=== PATIENT | male | born 1985 | race Caucasian/White ===

== ENCOUNTER 2017-09-07 20:37 | Emergency (ER) | payer OTHER, SELFPAY ==
[2017-09-07 20:38] VITALS: BP 131/89; PULSE 70; RESP 16; TEMP 36.8; O2SAT 98; BMI 34.2
--- NOTE | 2017-09-07 21:21 | CT_ITS ---
STUDY: CT ABDOMEN AND PELVIS WITHOUT CONTRAST REASON FOR EXAM: Male, 32 years old. Right flank pain, hematuria RADIATION DOSAGE (If Supplied By Facility): CTDIvol = ( 22.80 ) mGy, DLP = ( 1253.21 ) mGycm TECHNIQUE: Transaxial images were obtained from the lower chest to the upper thighs without oral contrast, and without intravenous contrast. Sagittal and coronal images were reconstructed. Individualized dose optimization techniques were used for this CT. COMPARISON: None. FINDINGS: There is minimal dependent atelectasis in both lung bases. There is no pleural effusion. The heart is normal in size. The liver is unremarkable. The gallbladder and biliary ducts are unremarkable. The spleen measures 16 cm in the AP plane. The pancreas is unremarkable. The adrenal glands are unremarkable. The right kidney is unremarkable. There is no dilatation of the collecting system in the right kidney. The left kidney is unremarkable. There is no dilatation of the collecting system in the left kidney. The stomach is unremarkable. The small bowel is unremarkable. The colon is unremarkable. There are a few calcifications in the lumen of the appendix and the appendix measures about 1.3 cm in diameter. There is no surrounding stranding. The aorta and branch vessels are unremarkable. The IVC is unremarkable. There are small lymph nodes scattered in the retroperitoneum and mesentery. There is no free fluid in the abdomen. The urinary bladder is unremarkable. The prostate is normal in size. The soft tissues are unremarkable. The osseous structures are unremarkable. CT/Abdomen/Pelvis without Cont IMPRESSION: There is no evidence of renal stones or urinary tract dilatation with attention to the right side. There are small appendicoliths in the lumen of the appendix with mild increased size of the appendix but no surrounding inflammation. The appendix is positioned between the inferior tip of the liver and the hepatic flexure. There is no ascites, free air or significant lymphadenopathy. The spleen is prominent in size which is nonspecific. Electronically Signed: Jiemy Price MD at 22:42 EST Tel Direct: [phone], Service support ,
--- NOTE | 2017-09-07 21:21 | ED.DCSUM_ITS ---
- ER Visit Summary Date of Service: 09/07/17 Chief Complaint: Hematuria and right flank pain History of Present Illness: The patient is a 32 M complaining of gross hematuria since . He has been able to urinate. Said he had does have about 10 years ago on extensive workup and did not find any cause of his hematuria and it resolved on its own after about a month. Said he had some type of skin that time and even had cystoscopy. He denies any dysuria. He denies any fever. He denies any nausea, vomiting or diarrhea. Today he did have right flank pain. No prior history of kidney stones. Physical Examination: Well-appearing young male. Vital signs are stable afebrile. HEENT exam unremarkable. Neck nontender no lymphadenopathy. Lungs clear to auscultation bilaterally. Heart regular rate and rhythm no murmur. Abdomen is soft, nontender nondistended no organ megaly or masses. Normal bowel sounds no peritoneal signs. He is moving all 4 extremities. Neurovascular intact. Without edema. Neurologically is awake and alert without focal deficits. Test Results: CBC normal white count of 7 H&H 13 and 39. BMP normal. Normal creatinine and gap. UA shows 10-25 red blood cells. Greater than 100 red blood cells. No nitrites or bacteria. A urine culture was sent. At this time this will not be treated. Patient does not have any urinary tract symptoms other than the blood. CT flank shows no acute abnormality. No stones. He does have appendicolith but no inflammation. And clinically that is not the issue. Emergency Department Course and Treatment: Gross hematuria will obtain a CT flank plus UA and labs. Treatment Plan: Repeat exam the patient is doing well at 2340. I went over all test results with both he and his . They are comfortable being discharged home. He is to follow-up with Dr. Michael burgos of urology for further evaluation. He was instructed to drink plenty of fluids. If he gets to the point where he cannot physically urinate he needs a return to have a Mcmanus catheter placed and be irrigated. He is having no trouble urinating at this time. Disposition: Discharge Impression: Acute gross hematuria of uncertain etiology This note was generated with [employer] dictation software. It may contain incorrect words, spelling, and punctuation that were not noted in review of the chart prior to signing ED Disposition - Plan for ED Patient: Chief Complaint: Complaint Referrals: Te Galan MD [Primary Care Provider] -
[2017-09-07 21:51] LABS: Bacteria 0 SEEN /hpf (None Seen); Mucous, Urine 0 SEEN /hpf (<or=2+)
[2017-09-07 21:54] LABS: Color, Urine Amber (Yellow); Glucose, Dipstick Normal (Normal); Ketone-Dipstick 5 mg/dl (Negative); Leukocyte Esterase-Dipstick 100 /ul (Negative); Nitrite-Dipstick Negative (Negative); Occult Blood-Urine 250 /ul (Negative); Protein-Dipstick 100 mg/dl (Negative); Urine Bilirubin Dipstick Negative (Negative); Urine Clarity Cloudy (Clear); Urine Urobilinogen Normal (Normal)
[2017-09-07 21:59] LABS: Absolute Lymphocyte Count 2.57 X10^3/ul (0.83-4.51); Absolute Neutrophil Count 3.8 X10^3/uL (2.0-7.7); Basophil# 0.01 X10^3/uL; Basophil% 0.1 % (0-1); Eosinophil# 0.17 X10^3/uL; Eosinophils% 2.4 % (0-5); Hematocrit 39.6 % (40-54); Hemoglobin 13.7 g/dl (13.0-16.5); Lymphocyte # 2.57 X10^3/ul (4.0); Lymphocyte % 36.2 % (19-41); Mean Corp Hgb Conc 34.6 g/gl (32-36); Mean Corpuscular Hgb 27.6 pg (27.0-32.0); Mean Corpuscular Volume 79.7 fL (80-94); Mean Platelet Vol. 9.4 fl (6.2-12.0); Monocyte# 0.51 X10^3/uL; Monocyte% 7.2 % (0-10); Neutrophil # 3.84 X10^3/uL (2.7-7.7); Neutrophil % 54.1 % (47-70); Platelet Count 197 K/mm3 (150-450); RBC Distribution Width CV 13.2 % (11.6-14.6); RBC Distribution Width SD 37.7 fl (35.1-43.9); Red Blood Count 4.97 M/mm3 (4.6-6.2); White Blood Count 7.1 K/mm3 (4.4-11.0)
[2017-09-07 22:01] LABS: POSITIVE COUNT NO; POSITIVE DIFFERENTIAL NO; POSITIVE MORPHOLOGY NO
[2017-09-07 22:03] LABS: Red Blood Cells-Urine > 100 SEEN /hpf (0-5); Squamous Epithelial Cells - UA 0-5 SEEN /hpf (0-5); White Blood Cells 10-25 SEEN /hpf (0-5)
[2017-09-07 22:11] LABS: Anion Gap 8 (5-15); BUN 19 mg/dL (7-18); BUN/Creat Ratio 17.8 RATIO (10-20); Calcium,Total 8.9 mg/dL (8.5-10.1); Chloride 106 mmol/L (98-107); Creatinine, Serum 1.07 mg/dL (0.70-1.30); EST Glomerular Filtration Rate 85 mL/min (>60); Est Glom Filt Rate - Afr Amer 103 mL/min (>60); Estimated Creatinine Clearance 134.58 ml/min; Glucose 100 mg/dL (74-106); Potassium 4.4 mmol/L (3.5-5.1); Sodium Level 141 mmol/L (136-145)
--- NOTE | 2017-09-07 23:44 | ED.DEP ---
ED Disposition - Plan for ED Patient: Disposition: Home or Assisted Living Chief Complaint: Complaint Instructions: ED Hematuria Referrals: Bernardo Wilde MD [STAFF PHYSICIAN] - As soon as possible Additional Instructions: Continue drinking plenty of liquids to continue to dilute the blood in your urine so that you can continue to urinate. If not you may develop large clots that will prevent you from urinating. If you get to the point where you cannot urinate you need to return to have a Mcmanus catheter placed to irrigate the blood your bladder. We do not have a cause of the blood in your urine tonight. You will need to follow-up with the urologist Dr. Michael Wilde.
[2017-09-07 23:57] VITALS: BP 120/72; PULSE 70; RESP 14; O2SAT 100
== END 2017-09-07 23:58 | disposition home or self-care (01) ==
PROVIDERS: Emergency Provider Emergency Medicine; Family Provider Family Medicine; PCP Family Medicine
DX: R31.0 Gross hematuria (principal); R10.9 Unspecified abdominal pain
CPT/HCPCS: 74176; 80048; 81001; 85025; 87086; 99283; A4216

== ENCOUNTER → 2017-09-09 12:32 | Outpatient (CLI) | payer OTHER, SELFPAY ==
--- NOTE | 2017-09-09 | CYSPIN_PTH ---
PATIENT: CORY GROSSMAN LOC: [facility] U#:[id number] AGE/SX: 40/M ROOM: RE09/09/[address]: RIKA Castillo : 1985 BED: DIS: SPEC #: [id number] RECD: 09/09/17 14:59 STATUS: CHARLA ACEVEDOLydia #: [id number] MANI: 09/09/17 00:[address]: Paula Burdick NP DEPT: CYTOLOGY RECD BY: Cecil Kay ENTERED: 09/09/17 14:59 SP TYPE: CYSPIN FL RADHA DR: Dr. Te Galan MD Tissues: Urine Procedures: Pap Stain (control) Special Stain Group II Cytospin Fluid Comments: @ Specimen number changed from [id number] to [id number] @ on 09/09/17 at 1524 by [employer]. HEADER OPERATION: Not noted PRE-OP DIAGNOSIS: Hematuria TISSUE SUBMITTED: Urine for cytology DIAGNOSIS CYTOLOGY Urine for cytology (cytospin): Bloody specimen. Negative for malignant cells. SJ:rg 09/10/17 COMMENT Clinical correlation and appropriate follow up are necessary. CYTOLOGY STUDY Slides are reviewed. The specimen is bloody and consists of blood mixed with inflammatory cells. CYTOLOGY GROSS Received is 50 ml of red, cloudy fluid labeled with the patient's name and and designated per the requisition as urine. Submitted for cytology preparation. 09/09/17 TC:5 CPT: 99857
[2017-09-09 13:02] LABS: Cytology, Body Fluid / CSF SEE PATHOLOGY REPORT
== END ==
PROVIDERS: Family Provider Family Medicine; PCP Family Medicine; Visit Provider Nurse Practitioner Adult Health
DX: R31.9 Hematuria, unspecified (principal)
CPT/HCPCS: 88108; 88313

== ENCOUNTER → 2017-09-17 15:38 | Outpatient (CLI) | payer OTHER, SELFPAY ==
--- NOTE | 2017-09-17 15:41 | CT_ITS ---
STUDY: CT ABDOMEN AND PELVIS WITH CONTRAST REASON FOR EXAM: Male, 32 years old. Right lower quadrant pain for 2 weeks, hematuria. RADIATION DOSAGE (If Supplied By Facility): CTDIvol = ( 20.71 ) mGy, DLP = ( 1573.01 ) mGycm TECHNIQUE: Transaxial images were obtained from the dome of the diaphragm to the symphysis pubis with oral contrast. 100ML ml of Isovue 300 contrast was administered. Sagittal and coronal images were reconstructed. Individualized dose optimization techniques were used for this CT. COMPARISON: CT abdomen pelvis September 07, 2017. FINDINGS: The visualized lung bases are unremarkable. The visualized portions of the heart are within normal limits. Normal liver. Patent portal vein diameter is 16.5 cm. The gallbladder is partially contracted. No bile duct ectasia. There is mild splenomegaly, measuring 16.85 x 5.95 x 12.95 cm. Normal pancreas. Normal bilateral adrenal glands. Normal right kidney. Normal left kidney. No hydronephrosis. Stomach is moderately filled with undigested food stuffs. Normal small intestine. Normal colon. Incidental note of cephalad retraction of the cecum, which is in the mid upper right flank. The appendix is visualized and appears normal. Normal abdominal aorta. Normal inferior vena cava. There are several stable nonspecific subcentimeter periaortic lymph nodes Normal urinary bladder. Normal visualized prostate gland. Mild fatty fullness of the inferior margin of the left inguinal canal suggests a small hernia. There are multilevel degenerative changes of the visualized spine. CT/Abdomen/Pelvis WITH Contrast IMPRESSION: 1. No nephrolithiasis or hydronephrosis. The urinary bladder is nondistended, but unremarkable. 2. Mild splenomegaly, unchanged. 3. Generally unremarkable bowel without sign of obstruction. There is moderate volume undigested food stuffs in the urinary bladder. Incidental note of stable cephalad retraction of the cecum. The appendix is normal. 4. Suggestion of stable small, fat containing left inguinal hernia. Electronically Signed: Daniel Smith MD at 19:43 EST , Service support ,
== END ==
PROVIDERS: Family Provider Family Medicine; PCP Family Medicine; Visit Provider Nurse Practitioner Adult Health
DX: R31.0 Gross hematuria (principal); R10.30 Lower abdominal pain, unspecified
CPT/HCPCS: 74177; Q9967

== ENCOUNTER → 2020-04-10 | Outpatient (CLI) | payer OTHER, SELFPAY ==
[2020-04-10 15:42] LABS: Vitamin B12 533 pg/mL (211-911); Vitamin D,25 Hydroxy 45.7 ng/mL
[2020-04-10 15:55] LABS: Absolute Lymphocyte Count 1.71 X10^3/uL (0.83-4.51); Absolute Neutrophil Count 3.8 X10^3/uL (2.0-7.7); Basophil# 0.02 X10^3/uL; Basophil% 0.3 % (0-1); Eosinophils% 1.6 % (0-5); Hematocrit 44.6 % (40-54); Hemoglobin 14.8 g/dL (13.0-16.5); Lymphocyte # 1.71 X10^3/ul (4.0); Lymphocyte % 27.4 % (19-41); Mean Corp Hgb Conc 33.2 g/dL (32-36); Mean Corpuscular Hgb 27.1 pg (27.0-32.0); Mean Corpuscular Volume 81.5 fL (80-94); Mean Platelet Vol. 10.3 fl (6.2-12.0); Monocyte# 0.59 X10^3/uL; Monocyte% 9.5 % (0-10); NRBC Flagged by Analyzer 0 % (0-5); Neutrophil # 3.78 X10^3/uL (2.7-7.7); Neutrophil % 60.7 % (47-70); Platelet Count 270 K/mm3 (150-450); RBC Distribution Width CV 13.3 % (11.6-14.6); RBC Distribution Width SD 39.3 fl (35.1-43.9); Red Blood Count 5.47 M/mm3 (4.6-6.2); White Blood Count 6.2 K/mm3 (4.4-11.0)
[2020-04-10 15:58] LABS: ALB/GLOB Ratio 1.3 RATIO (0.9-2.4); AST(SGOT) 18 U/L (15-37); Alanine Aminotransfer ALT/SGPT 35 U/L (16-61); Albumin, Serum 4.4 g/dL (3.2-5.0); Alkaline Phosphatase 82 U/L (45-117); Anion Gap 2 (5-15); BUN 13 mg/dL (7-18); BUN/Creat Ratio 11.9 RATIO (10-20); Calcium,Total 9.6 mg/dL (8.5-10.1); Chloride 104 mmol/L (98-107); Cholesterol 186 mg/dL (200); Creatinine, Serum 1.09 mg/dL (0.70-1.30); EST Glomerular Filtration Rate 82 mL/min (>60); Est Glom Filt Rate - Afr Amer 99 mL/min (>60); Globulin 3.4 g/dL (2.2-4.2); Glucose 93 mg/dL (74-106); High Density Lipoprotein 44 mg/dL; Potassium 4.6 mmol/L (3.5-5.1); Protein, Total 7.8 g/dL (6.4-8.2); Sodium Level 138 mmol/L (136-145); Thyroid Stim Hormone (TSH) 1.06 uIU/mL (0.358-3.74); Triglycerides 113 mg/dL; Very Low Density Lipoprotein 23 mg/dL (5-40)
== END | disposition home or self-care (01) ==
LOC: MFPLAB 12:07
PROVIDERS: PCP Family Medicine; Visit Provider Family Medicine
DX: R20.0 Anesthesia of skin (principal); Z13.220 Encounter for screening for lipoid disorders
CPT/HCPCS: 36415; 80053; 80061; 82306; 82607; 82746; 84443; 85025

== ENCOUNTER → 2020-06-14 06:26 | Outpatient (CLI) | payer OTHER, SELFPAY ==
--- NOTE | 2020-06-14 14:40 | NEURO ---
NCS and/or EMG Patient Report Ordering Doctor: Te Chamberlain DATE OF SERVICE: 06/14/20 Esteban Barrera presents for electrodiagnostic testing of the right lower limb. He reports pain in the right foot, under the big toe. He states he feels like he walking on a knob. Electrodiagnostic findings: Right peroneal motor nerve demonstrates normal distal latency, amplitude and conduction velocity. Normal right tibial motor response. Prolonged right tibial and peroneal F waves are noted. Prolonged H reflex noted bilaterally. Prolonged right sural latency. Absent right superficial peroneal response. On needle EMG, all muscles tested in the right lower limb showed no evidence of denervation with normal motor unit action potentials. Electrodiagnostic assessment: This is an abnormal study in the right lower limb 1. There is evidence of sensory neuropathy, involving the right sural and right superficial peroneal nerves. There are also prolonged F waves and H reflexes. This may be suggestive of a larger polyneuropathy. Would consider correlation with testing of the alternate lower limb in order to better evaluate for peripheral polyneuropathy. If there are any further questions, please do not hesitate to contact me
== END ==
PROVIDERS: PCP Family Medicine; Referring Provider Family Medicine; Visit Provider Family Medicine
DX: R20.0 Anesthesia of skin (principal)
CPT/HCPCS: 95886; 95910

== ENCOUNTER → 2020-08-29 16:10 | Outpatient (CLI) | payer OTHER, SELFPAY ==
[2020-08-29 14:59] VITALS: BMI 34.0
[2020-08-31 20:10] LABS: Free Kappa Light Chains 9.8 mg/L (3.3-19.4)
== END ==
PROVIDERS: PCP Family Medicine; Referring Provider Nurse Practitioner Family; Visit Provider Nurse Practitioner Family
DX: G62.9 Polyneuropathy, unspecified (principal)
CPT/HCPCS: 36415; 83883

== ENCOUNTER → 2020-08-30 11:30 | Outpatient (CLI) | payer OTHER, SELFPAY ==
[2020-08-29 14:59] VITALS: BMI 34.0
--- NOTE | 2020-08-30 11:33 | RAD_ITS ---
STUDY: X-RAY - RIGHT FOOT CLINICAL: Male, 35 years old. PAIN ON BOTTOM OF RIGHT BIG TOE AND FOOT. QUESTIONABLE MORTONS NEUROMA. TECHNIQUE: 2 view(s) of the foot. COMPARISON: None. FINDINGS: Normal talus, calcaneus, and tarsal bones. Normal visualized subtalar, talonavicular, calcaneocuboid, tarsal and tarsometatarsal articulations. Normal metatarsi. Normal metatarsophalangeal joint of the great toe. Normal tibial and fibular sesamoid bones. Normal interphalangeal joint of the great toe. Normal phalanges of the great toe. Normal second through fifth metatarsophalangeal joints. Normal interphalangeal joints and phalanges of the lesser toes. The soft tissue structures are unremarkable. RAD/Foot 2 Views IMPRESSION: Normal x-ray examination of the foot. Electronically Signed: Nilton Abrams MD at 15:43 EST , Service support ,
== END ==
PROVIDERS: PCP Family Medicine; Referring Provider Nurse Practitioner Family; Visit Provider Nurse Practitioner Family
DX: G57.61 Lesion of plantar nerve, right lower limb (principal)
CPT/HCPCS: 73620

== ENCOUNTER 2021-07-09 10:30 | Outpatient (RCR) | payer OTHER, SELFPAY ==
--- NOTE | 2021-07-02 14:05 | HP.PTEVAL ---
Patient's Visit Information CORY GROSSMAN is a 36 year old M referred to Physical Therapy by Dr. Mark Roman MD with a diagnosis of UPPER/MID THORACIC BACK PAIN. Date of Evaluation: 07/02/21 Physical Therapist: Antonio Alcocer PT, Cert MDT, OCS - Visit Plan Frequency: 1-2x /Week Duration: 5WEEKS Plan: PT INTERVETIONS THORACIC/CERVICAL MOBILIZATION,THORACIC /CERVICAL ROM,THORACIC /POSTURAL EX'S AND STRENGTHNEING - Subjective This 36 y/o male presents to physical therapy upper/mid thoracic pain . Patient has been there since Apr 2021 without predisposing factors. But did noticed episode lumbar pain doing beach body. But currently has pain scapular pain ,thoracic pain and lower neck. Aggravating factors flexion neck type exercises and or flexion laying supine ,morning ,sitting and twisting. Alleviating factors moving. Seen Dr no diagnostics or MEDS. Bowel/bladder -.Coughing/sneezing-. Denies HEDRICK . Patient symptoms are affected with house work tasks ,job demands. Denies paresthesia/tingling. Pain affects sleeping . Patient symptoms affects QOL. SOCIAL: . VOCATION: [employer] - Pain Bilateral Back Pain Intensity (Out of 10): 5 Pain Intensity Range: 10 Comment: thoracic - Objective POSTURE: mild forward thoracic. NEURO: denies paresthesia/tingling, reflexes C5-6-7 3/3. PALAPTION: tender UT. MOBLITY TESTING : thoracic spine min/mod tight T11 -C7. CERVICAL ROM: flexion min loss, rotation/lateral flexion min ,extension min/mod loss. THORACIC ROM: flexion min loss, extension mod loss ,rotation. MMT: grossly 5/5. - Special Tests C/S Radiculapathy - Left Upper limb tension test: Negative C/S Radiculapathy - Right Upper limb tension test: Negative C/S Radiculapathy - Left Spurlings: Negative C/S Radiculapathy - Right Spurlings: Negative C/S Radiculapathy - Left Cervical distraction: Negative C/S Radiculapathy - Right Cervical distraction: Negative Sharp Jessica: Negative Vertebral Artery Test: Negative Alar Ligament Test: Negative Cervical Sitting: Protrusion - Mechanical Response: No effect Cervical Sitting: Protrusion - Symptoms During Testing: Produces Cervical Sitting: Protrusion - Symptoms After Testing: Worse Cervical Sitting: Retraction - Mechanical Response: No effect Cervical Sitting: Retraction - Symptoms During Testing: Decreases Cervical Sitting: Retraction - Symptoms After Testing: Better Cervical Sitting: Retraction-Extension - Mechanical Response: No effect Cerv Sitting: Retraction-Extension - Symptoms During Testing: Decreases Cerv Sitting: Retraction-Extension - Symptoms After Testing: Better Cervical Sitting: Flexion - Mechanical Response: No effect Cervical Sitting: Flexion - Symptoms During Testing: Increases Cervical Sitting: Flexion - Symptoms After Testing: Worse Thoracic Sitting: Flexion - Mechanical Response: No effect Thoracic Sitting: Flexion - Symptoms During Testing: Increases Thoracic Sitting: Flexion - Symptoms After Testing: No worse Thoracic Sitting: Extension - Mechanical Response: No effect Thoracic Sitting: Extension - Symptoms During Testing: No effect Thoracic Sitting: Extension - Symptoms After Testing: No effect Thoracic Sitting: Right rotation - Mechanical Response: No effect Thoracic Sitting: Right Rotation - Symptoms During Testing: Increases Thoracic Sitting: Right Rotation - Symptoms After Testing: No worse Thoracic Sitting: Left rotation - Mechanical Response: No effect Thoracic Sitting: Left Rotation - Symptoms During Testing: Increases Thoracic Sitting: Left Rotation - Symptoms After Testing: No worse - Balance/Special Test Scores Oswestry Low Back Score: 15 - Goals Goal 1:: I with HEP for back Goal Time Frame: 4-6 Weeks Goal 2:: Improve posture for ADLS' Goal Time Frame: 4-6 Weeks Goal 3:: Patient to demonstrate 50 % improvement with decrease symptoms to improve function Goal Time Frame: 4-6 Weeks Goal 4:: Patient to improve cervical /thoracic ROM for function of recovery Goal Time Frame: 4-6 Weeks Goal 5:: Patient to improve back owestry score by 5 points to improve function Goal Time Frame: 4-6 Weeks - Rehabilitation Potential Physical Therapy Diagnosis: This patient has possible thoracic/cervical derangement with pain with positioning, movement testing , better with correction of posture and extension , posture thus benefit skilled PT Rehabilitation Potential: Good - Anticipated Interventions Patient/Client Instruction: Educate patient on: Condition, Plan of Care For the Purpose of:: To decrease pain, To increase ROM, To improve ability to perform ADL's, To increase tolerance to activity/condition/position, To improve ability of physical actions for home/community/work/leisure, To improve health of tissue, To decrease soft tissue restriction, To increase flexibility/ROM, To reduce risk of recurrence, To prevent re-injury Therapeutic Exercise to Include: Strength training, Endurance training, Body mechanics, Postural training, Flexibilty training, Active ROM, Alona Exercises For the Purpose of:: To decrease pain, To increase ROM, To increase oxygenation perfusion, To improve ability to perform ADL's, To increase tolerance to activity/condition/position, To improve ability of physical actions for home/community/work/leisure, To improve health of tissue, To decrease soft tissue restriction, To increase flexibility/ROM, To reduce risk of recurrence, To prevent re-injury Manual Therapy Techniques to Include: Mobilization Comment: THORACIC/CERVICAL For the Purpose of:: To decrease pain, To increase ROM, To improve health of tissue, To decrease soft tissue restriction, To increase flexibility/ROM Thank you for the opportunity to evaluate your patient. For Medicare and Medicare HMO plans, please review the plan of care and approve it. It will need to be FAXED BACK to us at [phone] for Medicare purposes. For Medicare only, by signing this I certify the plan of care. Please let me know if there are questions or concerns regarding this plan of care. Physician Signature: Date:
--- NOTE | 2021-08-01 08:58 | HP.PT.NRP ---
CORY GROSSMAN was seen in my office for initial evaluation on 07/02/21. The following Plan of Care was established for this patient: Initial Frequency: 1-2x /Week Initial Duration: 5WEEKS Patient/Client Instruction: Educate patient on: Condition, Plan of Care For the Purpose of:: To decrease pain, To increase ROM, To improve ability to perform ADL's, To increase tolerance to activity/condition/position, To improve ability of physical actions for home/community/work/leisure, To improve health of tissue, To decrease soft tissue restriction, To increase flexibility/ROM, To reduce risk of recurrence, To prevent re-injury Therapeutic Exercise to Include: Strength training, Endurance training, Body mechanics, Postural training, Flexibilty training, Active ROM, Alona Exercises For the Purpose of:: To decrease pain, To increase ROM, To increase oxygenation perfusion, To improve ability to perform ADL's, To increase tolerance to activity/condition/position, To improve ability of physical actions for home/community/work/leisure, To improve health of tissue, To decrease soft tissue restriction, To increase flexibility/ROM, To reduce risk of recurrence, To prevent re-injury Manual Therapy Techniques to Include: Mobilization Comment: THORACIC/CERVICAL For the Purpose of:: To decrease pain, To increase ROM, To improve health of tissue, To decrease soft tissue restriction, To increase flexibility/ROM This patient was last seen in our office . Pertinent comments regarding their Physical therapy will appear below: Patient was seen for PT for upper back pain for mobility ex's,ROM ,strengthening and DLS thus is d/c At this point I will be discontinuing this patient from physical therapy. I would be happy to see this patient again in the future if found appropriate by the physician. Thank you! Antonio Alcocer, PT, Cert MDT, OCS Balance/Gait/Functional tests - Balance/Special Test Scores Oswestry Low Back Score: 2
== END 2021-07-09 19:00 | disposition home or self-care (01) ==
LOC: PT 10:30
PROVIDERS: PCP Family Medicine; Referring Provider Family Medicine; Visit Provider Family Medicine
DX: M54.6 Pain in thoracic spine (principal)
CPT/HCPCS: 97110; 97161

== ENCOUNTER → 2021-11-14 | Outpatient (CLI) | payer OTHER, SELFPAY ==
[2021-11-14 10:00] LABS: Absolute Lymphocyte Count 1.53 X10^3/uL (0.83-4.51); Absolute Neutrophil Count 2.7 X10^3/uL (2.0-7.7); Basophil# 0.02 X10^3/uL; Basophil% 0.4 % (0-1); Eosinophil# 0.14 X10^3/uL; Eosinophils% 2.8 % (0-5); Hematocrit 38.7 % (40-54); Hemoglobin 13.4 g/dL (13.0-16.5); Lymphocyte # 1.53 X10^3/ul (0.83-4.51); Lymphocyte % 31.1 % (19-41); Mean Corp Hgb Conc 34.6 g/dL (32-36); Mean Corpuscular Hgb 28.7 pg (27.0-32.0); Mean Corpuscular Volume 82.9 fL (80-94); Mean Platelet Vol. 9.7 fl (6.2-12.0); Monocyte# 0.51 X10^3/uL; Monocyte% 10.4 % (0-10); NRBC Flagged by Analyzer 0 % (0-5); Neutrophil % 54.9 % (47-70); Platelet Count 240 K/mm3 (150-450); RBC Distribution Width CV 12.6 % (11.6-14.6); RBC Distribution Width SD 37.5 fl (35.1-43.9); Red Blood Count 4.67 M/mm3 (4.6-6.2); White Blood Count 4.9 K/mm3 (4.4-11.0)
[2021-11-14 10:26] LABS: ALB/GLOB Ratio 1.3 RATIO (0.9-2.4); AST(SGOT) 29 U/L (15-37); Alanine Aminotransfer ALT/SGPT 46 U/L (16-61); Albumin, Serum 3.9 g/dL (3.2-5.0); Alkaline Phosphatase 67 U/L (45-117); Anion Gap 4 (5-15); BUN 15 mg/dL (7-18); BUN/Creat Ratio 14.4 RATIO (10-20); Calcium,Total 8.5 mg/dL (8.5-10.1); Chloride 108 mmol/L (98-107); Cholesterol 151 mg/dL (200); Creatinine, Serum 1.04 mg/dL (0.70-1.30); EST Glomerular Filtration Rate 86 mL/min (>60); Est Glom Filt Rate - Afr Amer 104 mL/min (>60); Glucose 112 mg/dL (74-106); High Density Lipoprotein 30 mg/dL; Potassium 4.4 mmol/L (3.5-5.1); Protein, Total 6.9 g/dL (6.4-8.2); Sodium Level 140 mmol/L (136-145); T4 Free Direct 0.93 ng/dL (0.76-1.46); Thyroid Stim Hormone (TSH) 2.17 uIU/mL (0.358-3.74); Triglycerides 117 mg/dL; Very Low Density Lipoprotein 23 mg/dL (5-40)
[2021-11-14 17:45] LABS: Hemoglobin A1c 5.1 % (3.8-5.6)
== END | disposition home or self-care (01) ==
LOC: MFPLAB 08:39
PROVIDERS: Family Medicine; PCP Family Medicine; Referring Provider Family Medicine; Visit Provider Family Medicine
DX: Z00.00 Encounter for general adult medical examination without abnormal findings (principal); R73.09 Other abnormal glucose; E04.1 Nontoxic single thyroid nodule
CPT/HCPCS: 36415; 80053; 80061; 83036; 84439; 84443; 85025

== ENCOUNTER → 2021-11-19 | Outpatient (CLI) | payer OTHER, SELFPAY ==
--- NOTE | 2021-11-19 07:59 | US_ITS ---
STUDY: THYROID ULTRASOUND REASON FOR EXAM: Male, 36 years old. THYROID NODULE felt by doctor TECHNIQUE: Ultrasound evaluation of the thyroid was performed with real-time and static richey-scale imaging. COMPARISON: None. FINDINGS: RIGHT LOBE: The right lobe of the thyroid gland is enlarged and measures 6 cm x 2.7 cm x 1.8 cm. There is a homogeneous echotexture. There are no demonstrated solid, cystic or complex lesions. LEFT LOBE: The left lobe of the thyroid gland is enlarged and measures 5.4 cm x 2.4 cm x 1.8 cm. There is a there is a 2 mm x 3 mm x 3 mm cystic nodule in the lower pole of the left lobe.. ISTHMUS: The isthmus measures 3 mm. The regional lymph nodes are normal. US/Thyroid IMPRESSION: Enlarged thyroid. 2 mm x 3 mm x 3 mm cystic nodule in the inferior pole of the left lobe of the thyroid. Electronically Signed: Nilton Abrams MD at 10:24 EDT ,
== END | disposition home or self-care (01) ==
LOC: US 07:57
PROVIDERS: PCP Family Medicine; Referring Provider Family Medicine; Visit Provider Family Medicine
DX: E04.1 Nontoxic single thyroid nodule (principal)
CPT/HCPCS: 76536

== ENCOUNTER → 2022-05-05 | Day surgery (SDC) | payer OTHER, SELFPAY ==
[2022-05-05] VITALS (9 sets, daily range): BP systolic 112–171; BP diastolic 57–93; PULSE 58–78; RESP 12–18; TEMP 36–37.6; O2SAT 96–100; BMI 35.4
--- NOTE | 2022-05-05 09:07 | CT_ITS ---
STUDY: CT ABDOMEN AND PELVIS WITH CONTRAST REASON FOR EXAM: Male, 37 years old. RLQ abd pain RADIATION DOSAGE (If Supplied By Facility): CTDIvol = ( 17.07 ) mGy, DLP = ( 1379.28 ) mGycm TECHNIQUE: Transaxial images were obtained from the dome of the diaphragm to the symphysis pubis without oral contrast. IV 100mL Isovue-370 was administered. Sagittal and coronal images were reconstructed. Individualized dose optimization techniques were used for this CT. COMPARISON: None. FINDINGS: The visualized lung bases are unremarkable. The visualized portions of the heart are within normal limits. Normal liver. Normal gallbladder and extrahepatic biliary system. Normal spleen. Normal pancreas. Normal bilateral adrenal glands. Normal right kidney. Normal left kidney. Normal visualized stomach. Normal small intestine. Normal colon. There is a calcified appendicolith with a dilated fluid-filled appendix with stranding of surrounding fat consistent with acute appendicitis. No loculated fluid collection to suggest abscess. No pneumoperitoneum to suggest perforation. Normal abdominal aorta. Normal inferior vena cava. Normal retroperitoneum. Normal urinary bladder. Normal abdominal wall. Normal osseous structures. CT/Abdomen/Pelvis W IV Cont ONLY IMPRESSION: Acute appendicitis without abscess or perforation. N.B. : The above Results were Read Back by Antonio Chaudhari MD to Donavon Galvan MD, and understanding confirmed on 05/05/2022 09:55:22 (ET). Electronically Signed: Antonio Chaudhari MD at 9:56 EDT ,
--- NOTE | 2022-05-05 09:08 | EDS_ITS ---
HPI HPI - GI History of Present Illness Chief Complaint: Abd Pain Informant: patient Abdominal Pain/Flank Pain Onset: Yesterday Context: Gradual Onset Timing: Continuous Quality: Aching Location: RLQ Current Severity: Mild Maximum Severity: Mild Worsened by: Car ride Relieved by: Nothing Nausea/Vomiting/Emesis GI Symptom: Positive for Nausea; Negative for Vomiting Onset: Today Quality: Negative for Nonbilious Severity: Mild Diarrhea/Melena/Hematochezia GI Symptom: Negative for Diarrhea, Melena or Hematochezia Associated Symptoms Associated Symptoms: Negative for Dysuria, Frequency, Hematuria or Urgency Narrative Narrative: 37-year-old male no significant past medical history. Currently on no medications. Only prior surgery was a tonsillectomy. No prior abdominal robert geries. States last night around 1045 he had lower quadrant abdominal pain now is more so in the right lower quadrant. Associated nausea. No vomiting or diarrhea. No dysuria or hematuria. No fever. No weight loss. Prior similar symptoms: No Recent Illness/Hospitalization: No PFSH PFSH Medical History no medical history no medical history Home Medications NK 05/05/22 [History Last Taken Unknown] Allergy/AdvReac Type Severity Reaction Status Date / Time No Known Allergies Allergy Verified 05/05/22 08:52 Family History Father Hypertension A-fib Heart disease High cholesterol Surgical History History of tonsillectomy Social History Smoking Status: Never smoker Electronic Cigarette Use: not used second hand exposure: No alcohol intake: current Alcohol type: beer details: Social substance use type: does not use what type of physical activity do you participate in: running and weight training frequency: 5-6 times per week ROS ROS ED ROS Narrative Right lower quadrant abdominal pain. Nausea. Review of Systems ROS Unobtainable: Denies due to encephalopathy Constitutional Constitutional ED: Denies chills or fever(s) ENT ENT ED: Denies ear pain Cardiovascular Cardiovascular: Denies chest pain Respiratory/Chest Respiratory/Chest: Denies cough or dyspnea Gastrointestinal Gastrointestinal: Reports abdominal pain and nausea; Denies constipation, diarrhea, melena or vomiting Genitourinary Genitourinary ED: Denies dysuria or hematuria Musculoskeletal Musculoskeletal: Denies arthralgias Integumentary Denies abscess Neurologic Neurologic: Denies headache(s) Psychiatric Psychiatric: Denies anxiety Endocrine Endocrinology: Denies polydipsia Hematologic/Lymphatic Hematologic/Lymphatic: Denies easy bleeding Allergic/Immunologic Allergic/Immunologic ED: Denies mouth swelling or tongue swelling EXAM Physical Exam Narrative Exam Narrative: Well-appearing 37-year-old male. Vital signs stable afebrile. H EENT exam normal. Lungs clear. Heart regular rhythm no murmur. Abdomen soft, tender in the right lower quadrant only. No hernia or mass. No distention. Right upper quadrant unremarkable. No peritoneal signs. Moving all 4 extremities. Back nontender. Neurologically is awake and alert with no focal motor deficits. Const Vital Signs: 05/05/22 08:52 Temperature 96.8 F L Temperature Source Temporal Pulse Rate 58 L Respiratory Rate 18 Blood Pressure 171/93 H Blood Pressure Mean 119 Pulse Ox 99 Oxygen Delivery Method Room Air Positive well nourished and well developed; Negative for obese, cachectic, contractures or unkempt General Appearance ED: well developed and NAD; Negative for unkempt, cachectic, contractures or pallor Nutritional Appearance: Negative for cachectic or obese HEENT Reports moist mucous membranes normocephalic and atraumatic; Negative for trauma Eyes PERRL and EOMs intact bilaterally General Eye ED: Negative for pale conjunctiva or scleral icterus Neck no lymphadenopathy and no JVD General: Negative for tenderness Carotids: Negative for other Lymph Lymphatic: Negative for other Resp normal respiratory effort and clear to auscultation bilaterally Effort and Inspection: Negative for respiratory distress or retractions Auscultation: Negative for rales, rhonchi or wheezes Cardio regular rate, regular rhythm, S1 normal heart sound, S2 normal heart sound and no murmurs Rate: Negative for bradycardia Rhythm: Negative for abnormal rhythm GI non-distended and no masses; Negative for non-tender Inspection: Negative for abdominal distention Auscultation: normoactive bowel sounds Palpation: soft and tender; Negative for guarding, rigid, hepatomegaly, hernia, mass, pulsatile mass or rebound tenderness present Back/Spine no CVA tenderness General Back: Negative for CVA tenderness Cervical Spine: Negative for cervical spine tenderness Thoracic Spine / Upper Back: Negative for thoracic spinal tenderness Lumbar Spine / Lower Back: Negative for lumbar spinal tenderness Coccyx: Negative for other Extremity full ROM General Extremety ED: Negative for edema or tenderness General Extremity: Negative for edema Neuro CN's II-XII intact bilaterally, moves all extremities and no sensory deficits noted Sensorium / Orientation: alert, oriented to person, oriented to place and oriented to time; Negative for orientation impaired, confused, lethargic or stuporous Motor Exam: strength 5/5 throughout Psych mental status grossly normal and thought process normal Appearance: Negative for unkempt Attitude: No agitated Mood & Affect: Negative for depressed, anxious or tearful Skin no wounds General Skin Exam: Negative for jaundice or pallor Lesions: no lesions and No lesion noted Rashes: no rashes Trauma: Negative for abrasion Nails: Negative for discolored MDM MDM MDM Narrative Medical decision making narrative: 37-year-old male with right lower quadrant abdominal pain. CAT scan to be obtained for possible appendicitis. Also consider UTI, kidney stone or diverticulitis. He did not waiting for pain or nausea. Labs are also being obtained. Repeat exam unchanged at 10 AM. Discussed with the patient his test results. General surgery is on page. Exam unchanged. He will be written for Zofran for nausea. Zosyn due to the appendicitis. He did not waiting for pain at this time. Lab Data Attestation: I reviewed the patient's lab results. Lab results narrative: CBC shows a white count 9.3. H&H 14 and 40. Platelets 210. Electrolytes unremarkable gap of 5. Normal BUN and creatinine. Liver enzymes unremarkable. Glucose 120. UA negative. CAT scan consistent with acute appendicitis as read by the radiologist and called me. Labs: Laboratory Results - last 24 hr 05/05/22 05/05/22 05/05/22 09:19 09:19 09:45 WBC 11.3 H RBC 5.01 Hgb 14.3 Hct 40.7 MCV 81.2 MCH 28.5 MCHC 35.1 RDW Std Deviation 37.4 RDW Coeff of Vishnu 12.8 Plt Count 210 MPV 9.6 Immature Gran % (Auto) 0.200 Neut % (Auto) 81.3 H Lymph % (Auto) 9.6 L [place] % (Auto) 7.7 Eos % (Auto) 1.0 Baso % (Auto) 0.2 Absolute Neuts (auto) 9.2 H Absolute Lymphs (auto) 1.08 Nucleated RBC % 0 Sodium 138 Potassium 4.5 Chloride 106 Carbon Dioxide 27.0 Anion Gap 5 BUN 15 Creatinine 1.20 Estim Creat Clear Calc 114.44 Est GFR (MDRD) Af Amer 88 Est GFR (MDRD) Non-Af 72 BUN/Creatinine Ratio 12.5 Glucose 120 H Calcium 9.2 Total Bilirubin 0.80 AST 28 ALT 36 Alkaline Phosphatase 74 Total Protein 7.1 Albumin 4.2 Globulin 2.9 Albumin/Globulin Ratio 1.4 Urine Color Yellow Urine Clarity Clear Urine pH 5.0 Ur Specific [place] 1.020 Urine Protein Negative Urine Glucose (UA) Normal Urine Ketones Negative Urine Occult Blood Negative Urine Nitrite Negative Urine Bilirubin Negative Urine Urobilinogen Normal Ur Leukocyte Esterase Negative Radiography Diagnostic Testing: Clinical Impression(s) from Imaging Studies Abdomen/Pelvis CT 05/05/22 09:07 IMPRESSION: Acute appendicitis without abscess or perforation. N.B. : The above Results were Read Back by Antonio Chaudhari MD to Donavon Galvan MD, and understanding confirmed on 05/05/2022 09:55:22 (ET). Electronically Signed: Antonio Chaudhari MD at 9:56 EDT , Discharge Plan Triage Chief Complaint: Abd Pain ED Provider: Juan Galvan Dx/Rx/DC Orders Prescriptions: No Action NK Primary Care Provider: Mark Roman Referrals: Mark Roman MD [Primary Care Provider] -
[2022-05-05 09:35] LABS: Absolute Lymphocyte Count 1.08 X10^3/uL (0.83-4.51); Absolute Neutrophil Count 9.2 X10^3/uL (2.0-7.7); Basophil# 0.02 X10^3/uL; Basophil% 0.2 % (0-1); Eosinophil# 0.11 X10^3/uL; Hematocrit 40.7 % (40-54); Hemoglobin 14.3 g/dL (13.0-16.5); Lymphocyte # 1.08 X10^3/ul (0.83-4.51); Lymphocyte % 9.6 % (19-41); Mean Corp Hgb Conc 35.1 g/dL (32-36); Mean Corpuscular Hgb 28.5 pg (27.0-32.0); Mean Corpuscular Volume 81.2 fL (80-94); Mean Platelet Vol. 9.6 fl (6.2-12.0); Monocyte# 0.87 X10^3/uL; Monocyte% 7.7 % (0-10); NRBC Flagged by Analyzer 0 % (0-5); Neutrophil # 9.15 X10^3/uL (2.7-7.7); Neutrophil % 81.3 % (47-70); Platelet Count 210 K/mm3 (150-450); RBC Distribution Width CV 12.8 % (11.6-14.6); RBC Distribution Width SD 37.4 fl (35.1-43.9); Red Blood Count 5.01 M/mm3 (4.6-6.2); White Blood Count 11.3 K/mm3 (4.4-11.0)
[2022-05-05 09:41] LABS: ALB/GLOB Ratio 1.4 RATIO (0.9-2.4); AST(SGOT) 28 U/L (15-37); Alanine Aminotransfer ALT/SGPT 36 U/L (16-61); Albumin, Serum 4.2 g/dL (3.2-5.0); Alkaline Phosphatase 74 U/L (45-117); Anion Gap 5 (5-15); BUN 15 mg/dL (7-18); BUN/Creat Ratio 12.5 RATIO (10-20); Calcium,Total 9.2 mg/dL (8.5-10.1); Chloride 106 mmol/L (98-107); EST Glomerular Filtration Rate 72 mL/min (>60); Est Glom Filt Rate - Afr Amer 88 mL/min (>60); Estimated Creatinine Clearance 114.44 ml/min; Globulin 2.9 g/dL (2.2-4.2); Glucose 120 mg/dL (74-106); Potassium 4.5 mmol/L (3.5-5.1); Protein, Total 7.1 g/dL (6.4-8.2); Sodium Level 138 mmol/L (136-145)
[2022-05-05 09:47] LABS: Bacteria 0 SEEN /hpf (None Seen); Mucous, Urine 0 SEEN /hpf (<or=2+); Red Blood Cells-Urine 0 SEEN /hpf (0-5); Squamous Epithelial Cells - UA 0 SEEN /hpf (0-5); White Blood Cells 0 SEEN /hpf (0-5)
[2022-05-05 09:52] LABS: Color, Urine Yellow (Yellow); Glucose, Dipstick Normal (Normal); Ketone-Dipstick Negative (Negative); Leukocyte Esterase-Dipstick Negative /ul (Negative); Nitrite-Dipstick Negative (Negative); Occult Blood-Urine Negative /ul (Negative); Protein-Dipstick Negative (Negative); Urine Bilirubin Dipstick Negative (Negative); Urine Clarity Clear (Clear); Urine Urobilinogen Normal (Normal)
[2022-05-05] MEDS: Ondansetron 4 MG/2 ML Vial IV ×2 (10:25→12:27)
[2022-05-05] MEDS: Morphine 4 MG/ML Syringe 8 MG IV (12:28)
[2022-05-05] MEDS: Lactated Ringers 1,000 ML 15 ML IV (15:00)
--- NOTE | 2022-05-05 15:05 | APP_PTH ---
PATIENT: CORY GROSSMAN [place] [facility] [id number] AGE/SX: 37/M ROOM: RE05/05/[address]: Dr. Lev Estrella MD : 1985 BED: DIS: 05/05/2022 SPEC #: [id number] RECD: 05/06/22 07:01 STATUS: CHARLA KERWIN #: [id number] MANI: 05/05/22 15:[address]: Lev Estrella DEPT: SURGICAL PATHOLOGY RECD BY: Sangita Barrett ENTERED: 05/06/22 09:06 SP TYPE: APPENDIX OTHR DR: Dr. Mark Roman MD Tissues: Appendix, NOS Procedures: Surgery Specimen Level III HEADER OPERATION: Laparoscopic appendectomy PRE-OP DIAGNOSIS: Acute appendicitis TISSUE SUBMITTED: Appendix MICROSCOPIC DIAGNOSIS Appendix, appendectomy: Acute necrotizing appendicitis. Acute serositis. AM:brianne 05/07/2022 MICROSCOPIC DESCRIPTION Slides are reviewed. GROSS DESCRIPTION Received in fixative is one container labeled with the patient's name and designated appendix. The specimen consists of a vermiform appendix measuring 8 cm in length and 1.6 cm in average diameter. No gross perforations are evident. Serial sections reveal a patent lumen with fecal impaction. No mass lesion is identified. Engine Specialist sections are submitted in two cassettes. / AM:brianne 05/06/2022 TC:2 CPT: 16035
[2022-05-05] MEDS: Bupivacaine 0.25% 30 ML Vial (15:30)
--- NOTE | 2022-05-05 15:59 | HP.PCM_ITS ---
HPI - General General Date of Service: 05/05/22 Chief Complaint: Acute onset abdominal pain HPI Narrative CORY GROSSMAN, is a 37, otherwise healthy, M who presents to [facility] with complaints of lower abdominal pain that began last night and has s ericka migrated to his right lower quadrant. In fact now patient complains that his whole right side hurts. Patient has had some associated nausea and vomited once since his evaluation in the ER. Patient's ER work-up is notable for CBC with demonstrates a mild leukocytosis and CT imaging of the abdomen pelvis. The latter of which showed findings consistent with acute uncomplicated appendicitis. The patient's appendix was noted to contain a large appendicolith. PFSH Medical History no medical history Home Medications oxycodone 5 mg tablet 5 mg PO Q6H PRN pain 5 days #14 tabs 05/05/22 [Rx Last Taken Unknown] Allergy/AdvReac Type Severity Reaction Status Date / Time No Known Allergies Allergy Verified 05/05/22 08:52 Family History Father Hypertension A-fib Heart disease High cholesterol Surgical History (Updated 05/05/22 @ 16:[address] Lev Estrella MD) History of tonsillectomy Social History Smoking Status: Never smoker Electronic Cigarette Use: not used second hand exposure: No alcohol intake: current Alcohol type: beer details: Social substance use type: does not use what type of physical activity do you participate in: running and weight training frequency: 5-6 times per week ROS Constitutional Constitutional: Denies anorexia or fever(s) Gastrointestinal Gastrointestinal: Reports abdominal pain, nausea and vomiting; Denies constipation or diarrhea Vital Signs Vital Signs Vital Signs: 05/05/22 08:52 05/05/22 10:29 05/05/22 12:59 Temperature 96.8 F L 98.3 F 98 F Temperature Source Temporal Oral Temporal Pulse Rate 58 L 60 60 Respiratory Rate 18 18 12 Blood Pressure 171/93 H 135/80 H 147/82 H Blood Pressure Mean 119 98 103 Blood Pressure Source Monitor Blood Pressure Position Semi-Fowlers Blood Pressure Location Right Arm Pulse Ox 99 97 96 Oxygen Delivery Method Room Air Room Air Room Air Weight Weight: 322 lb 3.2 oz Body Mass Index (BMI) 35.4 Physical Exam GI GI Narrative: Normal habitus, nondistended, no scars. Soft, tender over McBurney's point and along right abdominal wall. Negative Rovsing's, negative obturator, positive psoas Results Lab / Micro Data Result Diagrams: 05/05/22 09:19 05/05/22 09:19 Labs: Laboratory Results - last 24 hr 05/05/22 09:19: WBC 11.3 H, RBC 5.01, Hgb 14.3, Hct 40.7, MCV 81.2, MCH 28.5, MCHC 35.1, RDW Std Deviation 37.4, RDW Coeff of Vishnu 12.8, Plt Count 210, MPV 9.6, Immature Gran % (Auto) 0.200, Neut % (Auto) 81.3 H, Lymph % (Auto) 9.6 L, [place] % (Auto) 7.7, Eos % (Auto) 1.0, Baso % (Auto) 0.2, Absolute Neuts (auto) 9 .2 H, Absolute Lymphs (auto) 1.08, Nucleated RBC % 0 05/05/22 09:19: Sodium 138, Potassium 4.5, Chloride 106, Carbon Dioxide 27.0, Anion Gap 5, BUN 15, Creatinine 1.20, Estim Creat Clear Calc 114.44, Est GFR (MDRD) Af Amer 88, Est GFR (MDRD) Non-Af 72, BUN/Creatinine Ratio 12.5, Glucose 120 H, Calcium 9.2, Total Bilirubin 0.80, AST 28, ALT 36, Alkaline Phosphatase 74, Total Protein 7.1, Albumin 4.2, Globulin 2.9, Albumin/Globulin Ratio 1.4 05/05/22 09:45: Urine Color Yellow, Urine Clarity Clear, Urine pH 5.0, Ur Sp ecific [place] 1.020, Urine Protein Negative, Urine Glucose (UA) Normal, Urine Ketones Negative, Urine Occult Blood Negative, Urine Nitrite Negative, Urine Bilirubin Negative, Urine Urobilinogen Normal, Ur Leukocyte Esterase Negative, Urine RBC 0 SEEN, Urine WBC 0 SEEN, Ur Squamous Epith Cells 0 SEEN, Urine Bacteria 0 SEEN, Urine Mucus 0 SEEN Radiology Impression Abdomen/Pelvis CT 05/05/22 09:07 IMPRESSION: Acute appendicitis without abscess or perforation. N.B. : The above Results were Read Back by Antonio Chaudhari MD to Donavon Galvan MD, and understanding confirmed on 05/05/2022 09:55:22 (ET). Electronically Signed: Antonio Chaudhari MD at 9:56 EDT , ADDENDUM: 05/05/22 1003 IMPRESSION: Acute appendicitis without abscess or perforation. N.B. : The above Results were Read Back by Antonio Chaudhari MD to Donavon Galvan MD, and understanding confirmed on 05/05/2022 09:55:22 (ET). Electronically Signed: Antonio Chaudhari MD at 9:56 EDT , Assessment & Plan Assessment/Plan (1) Acute appendicitis: PLAN: This is a 37-year-old male who presents with signs and symptoms of acute appendicitis. Symptoms began for him last evening. I have discussed with him his ER findings and also discussed with him and his the management of acute appendicitis. I reviewed that this management differs outside of the [place] and that antibiotics are frequently prescribed as first-line. I have al so shared with him the results of the recent coda trial and that a appendicolith is a predictor of antibiotic only treatment failure. Therefore I have recommended proceeding for emergent laparoscopic appendectomy. Have also counseled him that if the intraoperative findings confirmed the CT imaging that there is no perforation, patient could be eligible for discharge to home following his operation. I have instructed him on postoperative weight restrictions and that he will need to visit with me on an outpatient basis to review his pathology and follow-up healing. He and his spouse are in agreement with all of the above and wished to proceed as described. Charges/Coding Visit Charges Office Visits / Consults: 99605 ED Visit; High/Urgent Severity
--- NOTE | 2022-05-05 15:59 | OP.PCM_ITS ---
Report of Operation Date of Procedure: 05/05/22 Pre-Operative Diagnosis: Acute appendicitis with appendicolith Post-Operative Diagnosis: Acute appendicitis with appendicolith?uncomplicated Surgery/Procedure Performed:: Laparoscopic appendectomy Surgeon: Lev Estrella nuclear plant technical advisor: Gabriella Guo Type of Anesthesia: General/Supplemental Anesthesiologist: Cristine Bolton Specimen's removed: Appendix Estimated Blood Loss (mL): 10 Description of Procedure: After appropriate identification in the preoperative holding area, the patient was brought to the operating room and placed supine on the operating room table. Antibiotics had been preoperatively administered. Patient was then induced with general endotracheal anesthetic. The abdomen was clipped of remaining hair and was prepped and draped in usual sterile fashion. Formal timeout was conducted to confirm both the patient and the procedure. A supraumbilical incision was made and carried down to the level of the fascia which was sharply opened. After opening the peritoneum in like fashion a finger sweep was made to confirm position, and a balloon trocar was placed and pneumoperitoneum was established to 15 mmHg. Patient was positioned in Trendelenburg with the left side down. 2 additional 5 mm trocars were placed in the left lower quadrant and suprapubic positions. The peritoneum was inspected and there were no signs of inadvertent injury from this Finch entry. The appendix was not able to be immediately visualized. The terminal ileum was adherent to the right sidewall with numerous thin adhesions and the right colon was located in the patient's right upper quadrant. I chose to follow the tinea on the cecum to their splaying at the appendiceal base and found the appendix taking an abrupt turn towards the liver with moderate to severe inflammation. This inflammatory process had effectively covered it in a layer of soft tissue from the adjacent cecal mesocolon. Given this positioning and patient's large frame I quickly found it impossible to reach to the right upper quadrant with our current port set up and therefore placed a fourth 5 mm port under laparoscopic visualization just to the right of midline in the patient's epigastrium. A laparoscopic harmonic scalpel was used to open the peritoneum and this was extended up to the patient's liver as would normally be done with takedown of the hepatic flexure, however, given patient's anatomy orientation resulted in us taking down the lateral attachments of the appendix. Then using blunt laparoscopic dissection, a window was made in the mesoappendix adjacent to the appendiceal base. The mesoappendix was divided for a short distance against the appendix with application of a laparoscopic harmonic. Then the base of the appendix was sealed and amputated with the use of an Endo LIMA stapler. I then placed this cut edge of the appendix on traction and began serially dividing the mesoappendix as I approached the appendiceal tip using the harmonic scalpel. This proved to be very tedious as I made sure that all use energy was well away from the patient's adjacent colon. It was also evident that the appendiceal tip was buried only a few centimeters from the patient's gallbladder?making it further out of reach. Ultimately we were able to extricate the appendix completely from its soft tissue attachments and the appendix was placed in an Endo Catch bag. The staple line was inspected for hemostasis. After hemostasis was confirmed the appendix was removed from the umbilical port site. Pneumoperitoneum was then evacuated and the supraumbilical port site fascia was closed with #1 Vicryl in a [id number] fashion. The port sites were infiltrated with 30 mL local anesthetic. The skin of each port site was closed with 4-0 Monocryl in a subcuticular fashion. Steri-Strips and OpSite dressings were applied. Patient tolerated procedure well without any apparent complications. They were awoken from general anesthetic without issue and transferred to post anesthesia care unit for ongoing recovery. Complications None Admit VTE Documentation VTE Mechan Device Prophylaxis: SCD's Procedures Digestive 40xxx-49xxx: [id number] Laparoscopy appendectomy
--- NOTE | 2022-05-05 16:01 | DCINST_ITS ---
Discharge Instructions Diet Discharge Diet: No restrictions Activity Discharge Activity: May Not Drive (No driving while using narcotic pain medication) and May Shower (Postoperative day 1) May shower in (days): 2 Ice area for (Minutes): 20 Lifting Restrictions: No lifting greater than 15 pounds for 2 weeks after surgery Dressing / Incision Call your doctor if your incision/area has: Continuous Slow Oozing, Increased Pain/ Swelling, Increased Redness, Foul Smelling Discharge and Swelling at the incision site Call your doctor if you observe: Fever of 101 or Higher Remove Dressing in: 1 day (Please leave Steri-Strips intact until they fall off spontaneously or are taken off at your follow-up visit) Cleanse incision/area with: Soap & Water Follow Up Care Please Follow Up With: Lev Estrella MD When: 7-10days postop Test Results: Test results from this visit will be discussed in further detail at your follow- up appointment, if applicable. Discharge Plan Admission Primary Reason for Your Visit: Acute appendicitis Attending Provider: Lev Estrella Primary Care Provider: Mark Roman Instructions Patient Instructions: Appendectomy Lap Dc Discharge Orders/Prescriptions Prescriptions: New oxycodone 5 mg tablet 5 mg PO Q6H PRN (Reason: pain) 5 Days Qty: 14 0RF Referrals / Follow Up: Mark Roman MD [Primary Care Provider] - Disposition Disposition (needs filled in before D/C Order can be placed): Home, Self Care
[2022-05-05] MEDS: oxyCODONE 5 MG Tablet PO (17:00)
== END | disposition home or self-care (01) ==
LOC: ED 11:27 → SDC 11:29
PROVIDERS: Emergency Provider Emergency Medicine; PCP Family Medicine; Visit Provider Surgery
PROC: 0DTJ4ZZ Resection of Appendix, Percutaneous Endoscopic Approach (ICD-10-PCS; CPT 44970; principal; 2022-05-05 14:45)
DX: K35.80 Unspecified acute appendicitis (principal)
CPT/HCPCS: 44970; 00840; 74177; 80053; 81001; 85025; 88304; 99282; J7030; J7050; Q9967; A4216; J2405

== ENCOUNTER → 2022-05-17 | Outpatient (CLI) | payer OTHER, SELFPAY ==
[2022-05-17 15:42] LABS: Absolute Neutrophil Count 10.5 X10^3/uL (2.0-7.7); Basophil# 0.04 X10^3/uL; Basophil% 0.3 % (0-1); Eosinophil# 0.04 X10^3/uL; Eosinophils% 0.3 % (0-5); Hematocrit 40.3 % (40-54); Hemoglobin 13.5 g/dL (13.0-16.5); Lymphocyte % 9.9 % (19-41); Mean Corp Hgb Conc 33.5 g/dL (32-36); Mean Corpuscular Hgb 27.8 pg (27.0-32.0); Mean Corpuscular Volume 82.9 fL (80-94); Mean Platelet Vol. 9.4 fl (6.2-12.0); Monocyte# 1.19 X10^3/uL; NRBC Flagged by Analyzer 0 % (0-5); Neutrophil # 10.52 X10^3/uL (2.7-7.7); Neutrophil % 79.9 % (47-70); Platelet Count 272 K/mm3 (150-450); RBC Distribution Width CV 12.3 % (11.6-14.6); RBC Distribution Width SD 37.2 fl (35.1-43.9); Red Blood Count 4.86 M/mm3 (4.6-6.2); White Blood Count 13.2 K/mm3 (4.4-11.0)
== END | disposition home or self-care (01) ==
LOC: LAB 13:52
PROVIDERS: PCP Family Medicine; Referring Provider Surgery; Visit Provider Surgery
DX: Z90.49 Acquired absence of other specified parts of digestive tract (principal)
CPT/HCPCS: 36415; 85025

== ENCOUNTER → 2022-05-17 | Outpatient (CLI) | payer OTHER, SELFPAY ==
--- NOTE | 2022-05-17 17:22 | CT_ITS ---
STUDY: CT ABDOMEN AND PELVIS WITH CONTRAST REASON FOR EXAM: Male, 37 years old. bloating/abdomen pain post appendectomy RADIATION DOSAGE (If Supplied By Facility): CTDIvol = ( 15.34 ) mGy, DLP = ( 1475.03 ) mGycm TECHNIQUE: Transaxial images were obtained from the dome of the diaphragm to the symphysis pubis without oral contrast. IV 100mL Isovue-300 was administered. Sagittal and coronal images were reconstructed. Individualized dose optimization techniques were used for this CT. COMPARISON: None. FINDINGS: The visualized lung bases are unremarkable. The visualized portions of the heart are within normal limits. Liver is normal size. There is a tiny cyst in the right lobe posterior segment. Bile ducts not dilated. Normal gallbladder and extrahepatic biliary system. Normal spleen. Normal pancreas. Normal bilateral adrenal glands. Normal right kidney. Normal left kidney. Normal visualized stomach. Normal small intestine. Appendix is not visualized consistent with prior appendectomy however, there is concentric thickening of the grigsby of the cecum and proximal ascending colon with diffuse inflammatory stranding in the fat and small amount of fluid in the right paracolic gutter consistent with acute inflammatory changes No well-defined abscess is observed. Normal abdominal aorta. Normal inferior vena cava. Normal retroperitoneum. Normal urinary bladder. Small fat-containing left inguinal hernia. Lumbar spine demonstrates mild spondylosis.. CT/Abdomen/Pelvis WITH Contrast IMPRESSION: Acute phlegmonous changes involving the cecum and proximal ascending colon status post appendectomy. There is a small amount of extraluminal fluid however there are no air bubbles to suggest abscess at this time Electronically Signed: Donavon Benavides MD at 18:05 EDT ,
== END | disposition home or self-care (01) ==
LOC: CT 17:18
PROVIDERS: Visit Provider Surgery
DX: R10.9 Unspecified abdominal pain (principal); Z90.49 Acquired absence of other specified parts of digestive tract
CPT/HCPCS: 74177; Q9967

== ENCOUNTER → 2023-01-31 | Outpatient (CLI) | payer OTHER, SELFPAY ==
[2023-01-31 11:23] LABS: Anion Gap 4 (5-15); BUN 13 mg/dL (7-18); BUN/Creat Ratio 12.1 RATIO (10-20); Chloride 108 mmol/L (98-107); Cholesterol 188 mg/dL (200); Creatinine, Serum 1.07 mg/dL (0.70-1.30); EST Glomerular Filtration Rate 82 mL/min (>60); Est Glom Filt Rate - Afr Amer 100 mL/min (>60); Glucose 110 mg/dL (74-106); High Density Lipoprotein 38 mg/dL; Potassium 4.4 mmol/L (3.5-5.1); Sodium Level 140 mmol/L (136-145); Triglycerides 99 mg/dL; Very Low Density Lipoprotein 20 mg/dL (5-40)
== END | disposition home or self-care (01) ==
LOC: MFPLAB 08:33
PROVIDERS: PCP Family Medicine; Visit Provider Nurse Practitioner Family
DX: Z13.1 Encounter for screening for diabetes mellitus (principal); Z13.220 Encounter for screening for lipoid disorders
CPT/HCPCS: 36415; 80048; 80061

== ENCOUNTER → 2023-02-11 | Outpatient (CLI) | payer OTHER, SELFPAY ==
[2023-02-11 10:16] LABS: Hemoglobin A1c 5.4 % (3.8-5.6)
== END | disposition home or self-care (01) ==
LOC: MFPLAB 09:08
PROVIDERS: PCP Family Medicine; Visit Provider Nurse Practitioner Family
DX: R73.01 Impaired fasting glucose (principal)
CPT/HCPCS: 36415; 83036

== ENCOUNTER → 2023-07-21 | Outpatient (CLI) | payer OTHER, SELFPAY ==
--- NOTE | 2023-07-21 15:10 | RAD_ITS ---
INDICATION: CAP EXAMINATION/TECHNIQUE: X-RAY - XR Chest 2 Views COMPARISON: No relevant prior comparison study available FINDINGS: LINES/DEVICES: None. LUNGS: No consolidation, edema or effusion. No pneumothorax. MEDIASTINUM AND CARDIOVASCULAR STRUCTURES: Cardiac silhouette not enlarged. Central airways and mediastinal contour are unremarkable. BONES AND SOFT TISSUES: Unremarkable. RAD/Chest PA and Lateral IMPRESSION: No radiographic evidence of acute cardiopulmonary disease. Electronically Signed: Nadeem Mi MD at 15:24 EST ,
== END | disposition home or self-care (01) ==
PROVIDERS: PCP Family Medicine; Referring Provider Family Medicine; Visit Provider Family Medicine
DX: J18.9 Pneumonia, unspecified organism (principal)
CPT/HCPCS: 71046

== ENCOUNTER 2023-09-26 22:59 | Emergency (ER) | payer OTHER, SELFPAY ==
[2023-09-26 22:59] VITALS: BP 175/84; PULSE 76; RESP 16; TEMP 36.6; O2SAT 95
--- NOTE | 2023-09-26 23:21 | ED.VIS.LOWEX ---
HPI History of Present Illness Chief Complaint: Lower Extremity Injury Detail of Chief Complaint: Left ankle injury Informant: patient Narrative Narrative: Patient presents after left ankle injury. 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 He states he stepped on the edge of a score table. He was able to tape his ankle and continue, however send increased swelling and difficulty with weightbearing. PFSH PFSH Medical History no medical history no medical history Home Medications hydrocodone-acetaminophen 5-325mg 5mg-325mg 1 tab PO Q6H PRN PRN Pain 3 days #10 TABLETS 09/27/23 [Rx Last Taken Unknown] naproxen 500 mg tablet (Naprosyn) 500 mg PO BID PRN pain #20 tabs 09/27/23 [Rx Last Taken Unknown] Allergy/AdvReac Type Severity Reaction Status Date / Time No Known Allergies Allergy Verified 09/26/23 23:04 Family History Father Hypertension A-fib Heart disease High cholesterol Surgical History History of appendectomy History of tonsillectomy Social History Smoking Status: Never smoker Electronic Cigarette Use: not used second hand exposure: No alcohol intake: current Alcohol type: beer details: Social substance use type: does not use what type of physical activity do you participate in: running and weight training frequency: 5-6 times per week ROS ROS ED Constitutional Constitutional ED: Denies chills or fever(s) Eyes Eyes: Denies discharge from eye(s) ENT ENT ED: Denies discharge from eye(s), rhinorrhea or sore throat Cardiovascular Cardiovascular: Denies chest pain or palpitations Respiratory/Chest Respiratory/Chest: Denies cough or dyspnea Gastrointestinal Gastrointestinal: Denies abdominal pain, nausea or vomiting Genitourinary Genitourinary ED: Denies dysuria Musculoskeletal Musculoskeletal: Reports extremity pain; Denies back pain Integumentary Denies Abrasions or rash Neurologic Neurologic: Denies headache(s) or weakness Psychiatric Psychiatric: Denies anxiety or depression Endocrine Endocrinology: Denies polydipsia or polyuria Allergic/Immunologic Allergic/Immunologic ED: Denies lip swelling or urticaria EXAM Physical Exam Const Vital Signs: 09/26/23 22:59 Temperature 97.8 F Temperature Source Temporal Pulse Rate 76 Respiratory Rate 16 Blood Pressure 175/84 H Blood Pressure Mean 114 Pulse Ox 95 Oxygen Delivery Method Room Air Positive well nourished and well developed General Appearance ED: well developed HEENT Reports moist mucous membranes Neck full ROM Chest Wall inspection of chest normal and palpation of chest normal Resp normal respiratory effort and clear to auscultation bilaterally Cardio regular rate and regular rhythm GI non-tender Palpation: soft Extremity Extremity Narrative: Left ankle edema with tenderness primarily over the lateral malleolus. Early ecchymosis noted along the lateral portion of the foot. Good distal pulses. Can wiggle toes. No tenderness of the proximal fibula or knee. Neuro oriented x3 and no sensory deficits noted MDM MDM MDM Narrative Medical decision making narrative: Patient be given [place] and Naprosyn for pain control. Ice applied to the left ankle. X-rays of the left ankle and foot will be obtained to evaluate for fracture. Radiography Diagnostic Testing: Clinical Impression(s) from Imaging Studies Ankle X-Ray 09/26/23 23:31 IMPRESSION: 1. Lateral soft tissue swelling consistent with soft tissue and ligamentous injury however no avulsion deformities noted. No soft tissue gas or radiopaque foreign body. 2. No evidence fracture, malalignment or focal bony or joint space abnormality. Electronically Signed: Antonio Vogel MD at 0:01 EDT , Foot X-Ray 09/26/23 23:31 IMPRESSION: 1. No evidence fracture, malalignment or focal bony or joint space abnormality. Electronically Signed: Antonio Vogel MD at 23:59 EDT , Treatment and Re-Evaluation Narrative: Left foot and ankle x-rays per my interpretation reveal no evidence of fracture. Radiology interpretation reviewed and agrees. He does have lateral soft tissue swelling. Test results discussed with the patient. He will be given an air stirrup splint and crutches. I will write him prescription for naproxen as well as a few [place] for breakthrough pain. He is referred to orthopedics for follow-up if not improving. Discharge Plan Triage Chief Complaint: Lower Extremity Injury ED Provider: Jeimy Smith Dx/Rx/DC Orders Clinical Impression: Left ankle sprain Instructions: ED Ankle Sprain (Adult) Prescriptions: New naproxen [Naprosyn] 500 mg tablet 500 mg PO BID PRN (Reason: pain) Qty: 20 0RF hydrocodone-acetaminophen 5-325 mg tablet 1 tab PO Q6H PRN PRN (Reason: Pain) 3 Days Qty: 10 0RF Primary Care Provider: Te Neville Referrals: Te Neville MD [Primary Care Provider] - Philip Posada MD [Med Staff - Active Staff] - As Needed Disposition Disposition: Home, Self Care
[2023-09-26] MEDS: HYDROcodone Bitartrate/Apap 5/325 Tablet PO (23:22)
[2023-09-26] MEDS: Naproxen 500 MG Tablet PO (23:22)
--- NOTE | 2023-09-26 23:31 | RAD_ITS ---
INDICATION: injury EXAMINATION/TECHNIQUE: X-RAY - LEFT XR Foot Min 3 Views 3 VIEWS COMPARISON: No relevant prior comparison study available FINDINGS: SOFT TISSUES: No soft tissue swelling or gas. No radiopaque foreign body. BONES/JOINTS: No acute fracture or subluxation.. Normal alignment. Preservation of the joint space.. No sclerotic or destructive changes observed. RAD/Foot min 3 Views IMPRESSION: 1. No evidence fracture, malalignment or focal bony or joint space abnormality. Electronically Signed: Antonio Vogel MD at 23:59 EDT ,
--- NOTE | 2023-09-26 23:31 | RAD_ITS ---
INDICATION: injury EXAMINATION/TECHNIQUE: X-RAY - LEFT XR Ankle Min 3 Views 3 VIEWS COMPARISON: No relevant prior comparison study available FINDINGS: SOFT TISSUES: There is a lateral soft tissue swelling without avulsion deformity, fracture or radiopaque foreign body or soft tissue gas. BONES/JOINTS: No acute fracture or subluxation.. Normal alignment. Preservation of the joint space.. No sclerotic or destructive changes observed. RAD/Ankle min 3 Views IMPRESSION: 1. Lateral soft tissue swelling consistent with soft tissue and ligamentous injury however no avulsion deformities noted. No soft tissue gas or radiopaque foreign body. 2. No evidence fracture, malalignment or focal bony or joint space abnormality. Electronically Signed: Antonio Vogel MD at 0:01 EDT ,
[2023-09-27 01:00] VITALS: BP 167/97; PULSE 87; RESP 18; O2SAT 100
== END 2023-09-27 01:26 | disposition home or self-care (01) ==
PROVIDERS: Emergency Provider Emergency Medicine; PCP Family Medicine; Visit Provider Emergency Medicine
DX: S93.402A Sprain of unspecified ligament of left ankle, initial encounter (principal); W22.09XA Striking against other stationary object, initial encounter; Y93.67 Activity, basketball; Y92.310 Basketball court as the place of occurrence of the external cause
CPT/HCPCS: 73610; 73630; 99285

== ENCOUNTER → 2023-10-28 | Outpatient (CLI) | payer OTHER, SELFPAY ==
[2023-10-28 12:07] LABS: Absolute Neutrophil Count 3.2 X10^3/uL (2.0-7.7); Basophil# 0.02 X10^3/uL; Basophil% 0.3 % (0-1); Eosinophil# 0.13 X10^3/uL; Eosinophils% 2.2 % (0-5); Hematocrit 40.9 % (40-54); Hemoglobin 13.9 g/dL (13.0-16.5); Lymphocyte % 32.7 % (19-41); Mean Corpuscular Hgb 27.8 pg (27.0-32.0); Mean Corpuscular Volume 81.8 fL (80-94); Monocyte# 0.57 X10^3/uL; Monocyte% 9.8 % (0-10); NRBC Flagged by Analyzer 0 % (0-5); Neutrophil # 3.17 X10^3/uL (2.7-7.7); Neutrophil % 54.7 % (47-70); Platelet Count 250 K/mm3 (150-450); RBC Distribution Width CV 13.3 % (11.6-14.6); RBC Distribution Width SD 39.1 fl (35.1-43.9); White Blood Count 5.8 K/mm3 (4.4-11.0)
[2023-10-28 13:20] LABS: ALB/GLOB Ratio 1.3 RATIO (0.9-2.4); AST(SGOT) 18 U/L (15-37); Alanine Aminotransfer ALT/SGPT 38 U/L (16-61); Albumin, Serum 4.2 g/dL (3.2-5.0); Alkaline Phosphatase 77 U/L (45-117); Anion Gap 6 (5-15); BUN 15 mg/dL (7-18); BUN/Creat Ratio 14.3 RATIO (10-20); Calcium,Total 9.5 mg/dL (8.5-10.1); Chloride 106 mmol/L (98-107); Cholesterol 210 mg/dL (200); Creatinine, Serum 1.05 mg/dL (0.70-1.30); EST Glomerular Filtration Rate 84 mL/min (>60); Est Glom Filt Rate - Afr Amer 101 mL/min (>60); Globulin 3.3 g/dL (2.2-4.2); Glucose 109 mg/dL (74-106); High Density Lipoprotein 42 mg/dL; Potassium 4.5 mmol/L (3.5-5.1); Protein, Total 7.5 g/dL (6.4-8.2); Sodium Level 139 mmol/L (136-145); Triglycerides 139 mg/dL; Very Low Density Lipoprotein 28 mg/dL (5-40)
[2023-10-28 16:47] LABS: Hemoglobin A1c 5.3 % (3.8-5.6)
== END | disposition home or self-care (01) ==
LOC: MFPLAB 10:52
PROVIDERS: PCP Family Medicine; Visit Provider Family Medicine
DX: Z00.00 Encounter for general adult medical examination without abnormal findings (principal)
CPT/HCPCS: 36415; 80053; 80061; 83036; 85025

== ENCOUNTER → 2024-10-19 | Outpatient (CLI) | payer OTHER, SELFPAY ==
[2024-10-19 14:58] LABS: Absolute Neutrophil Count 2.7 X10^3/uL (2.0-7.7); Basophil# 0.02 X10^3/uL; Basophil% 0.4 % (0-1); Eosinophil# 0.22 X10^3/uL; Eosinophils% 4.3 % (0-5); Hematocrit 41.1 % (40-54); Hemoglobin 13.7 g/dL (13.0-16.5); Lymphocyte % 33.1 % (19-41); Mean Corp Hgb Conc 33.3 g/dL (32-36); Mean Corpuscular Hgb 27.4 pg (27.0-32.0); Mean Corpuscular Volume 82.2 fL (80-94); Mean Platelet Vol. 10.1 fl (6.2-12.0); Monocyte# 0.49 X10^3/uL; Monocyte% 9.5 % (0-10); NRBC Flagged by Analyzer 0 % (0-5); Neutrophil % 52.5 % (47-70); Platelet Count 232 K/mm3 (150-450); RBC Distribution Width CV 13.4 % (11.6-14.6); RBC Distribution Width SD 39.5 fl (35.1-43.9); White Blood Count 5.1 K/mm3 (4.4-11.0)
[2024-10-19 15:22] LABS: Hemoglobin A1c 5.2 % (<=5.6)
[2024-10-19 15:28] LABS: ALB/GLOB Ratio 1.8 RATIO (0.9-2.4); AST(SGOT) 21 U/L (<=37); Alanine Aminotransfer ALT/SGPT 24 U/L (<=46); Albumin, Serum 4.6 g/dL (3.5-5.0); Alkaline Phosphatase 74 U/L (40-129); Anion Gap 10 (5-15); BUN 13 mg/dL (4-19); BUN/Creat Ratio 12.1 RATIO (10-20); Calcium,Total 9.9 mg/dL (7.6-11.0); Carbon Dioxide 25.3 mmol/L (21.0-32.0); Chloride 104 mmol/L (98-108); Cholesterol 181 mg/dL (<=200); Creatinine, Serum 1.09 mg/dL (0.70-1.20); EST Glomerular Filtration Rate 89 (>60); Globulin 2.5 g/dL (2.2-4.2); Glucose 90 mg/dL (70-99); High Density Lipoprotein 46 mg/dL; Low Density Lipoprotein Calc. 118 mg/dL; Potassium 4.9 mmol/L (3.3-5.1); Protein, Total 7.1 g/dL (5.9-8.4); Sodium Level 140 mmol/L (133-145); Total Bilirubin 0.59 mg/dL (0.00-1.30); Triglycerides 84 mg/dL; Very Low Density Lipoprotein 17 mg/dL (5-40); cholesterol:hdl ratio screen 3.95
== END | disposition home or self-care (01) ==
LOC: MFPLAB 11:24
PROVIDERS: PCP Family Medicine; Referring Provider Family Medicine; Visit Provider Family Medicine
DX: Z00.00 Encounter for general adult medical examination without abnormal findings (principal); R73.09 Other abnormal glucose
CPT/HCPCS: 36415; 80053; 80061; 83036; 85025

== ENCOUNTER → 2025-03-23 | Outpatient (CLI) | payer OTHER, SELFPAY ==
--- NOTE | 2025-03-23 15:59 | RAD_ITS ---
PROCEDURE: LUMBAR SPINE 2 OR 3 VIEWS 03/23/2025 REASON FOR EXAM: BACK PAIN TECHNIQUE: Procedure Code: RADSPLL Modality: DX Procedure: LUMBAR SPINE 2 OR 3 VIEWS COMPARISON: None. RAD/Lumbar Spine 2 or 3 Views IMPRESSION: [id number] degenerative changes are seen of the mid to lower lumbar spine , with moderate disc narrowing seen at L3-L4 and L4-L5 levels, probably also at L5-S1. Lower lumbar posterior facet hypertrophy is also seen. No evidence of spondylolysis or spondylolisthesis. Sacroiliac joints appear within the normal range for age. Reading Location: [place] [id number]
--- OUTSIDE RECORDS SUMMARY | 2025-03-23 22:23 | XMS RPT_ITS | CCD ---
Author Organization [facility] Care Team Providers Care Supervisor Riprap Placing Name Role Phone Dr. Mark Roman Primary Care Provider Dr. Juan Galvan Emergency Provider Dr. Lev Estrella Attending Provider [phone] Dr. Lev Estrella Other Provider Dr. Mark Roman Primary Care Provider Dr. Juan Galvan Referring Provider Dr. Juan Galvan Emergency Provider Dr. Lev Estrella Attending Provider Dr. Lev Estrella Other Provider Dr. Mark Roman Referring Provider PCP, No Primary Care Provider UnavailMD Yoselin Maynard Emergency Provider UnavailMD Aaron Patton Admit Provider Unavailable MD Aaron Olivera Attending Provider Unavailab le PCP, No Primary Care Unavailable Yoselin Metcalf Attending Unavailable PCP, No Primary Care Unavailable Aaron Olivera Admitting Unavailable Aaron Olivera Attending Unavailable Dr. Te Neville MD Primary Care Provider Dr. Te Neville MD Attending Provider Dr. Te Neville MD Referring Provider Te Neville Attending Unavailable Te Neville Primary Care Unavailable Te Neville Attending Unavailable Te Neville Referring Unavailable Te Neville Primary Care Unavailable Medications Current Medications Medication Drug Class(es) Dates Sig (Normalized) Sig (Original) acetaminophen 325 mg / HYDROcodone bitartrate 5 mg oral tablet (3 sources) Opioid Agonist Start: 09-27-2023 take 1 tablet by mouth every six hours as needed for pain Hydrocodone-Aceta minophen 5-325 mg tablet Active 1 {tbl} PO EVERY 6 HOURS NEEDED as needed for Pain 10 September 27, 2023 Start: 09-27-2023 take 1 tablet by eduardo th every six hours as needed Hydrocodone-Acetaminophen Active 1 TABLE T PO EVERY 6 HOURS NEEDED 10 September 27, 2023 azithromycin 250 mg oral tablet (1 source) Macrolide Antimicrobial Start: 07-05-2023 Azithromycin (Zithromax) 250 mg tablet Active 0 PO .COMPLEX July 05, 2023 12:00am For 250 mg dose pack: take 500 mg today (day 1), then 250 mg for 4 days (days 2-5) cephalexin 500 mg oral tablet (1 source) Cephalosporin Antibacterial Start: 07-05-2023 take 500 mg by mouth three times daily Cephalexin Active 500 MG PO three times a day July 05, 2023 12:00am naproxen 500 mg oral tablet (3 sources) Nonsteroidal Anti-inflammatory Drug Start: 09-27-2023 take 1 tablet by mouth twice daily as needed for pain Naproxen (Naprosyn) 500 mg tablet Active 500 mg PO TWICE A DAY as needed for pain September 27, 2023 12:00am [place] (Nk) (4 sources) Start: 05-17-2022 [place] (Nk) Active May 16, 2022 11:00pm Start: 05-05-2022 [place] (Nk) A ctive May 05, 2022 12:00am Completed/Discontinued Medications Medication Drug Class(es) Dates Sig (Normalized) Sig (Original) flurbiprofen 100 mg oral tablet (10 sources) Nonsteroidal Anti-inflammatory Drug Start: 08-29-2020 End: 10-10-2020 take 1 tablet by mouth three times daily at mealtime for pain Flurbiprofen 100 mg tablet Discontinued 100 mg PO THREE TIMES A DAY as needed for pain/discomfort August 29, 2020 1:00am October 10, 2020 8:26am take with food; do not take with other NSAIDs oxyCODONE hydrochloride 5 mg oral tablet (7 sources) Opioid Agonist Start: 05-05-2022 End: 05-13-2022 take 1 tablet by mouth every six hours as needed for pain Oxycodone 5 mg tablet Discontinued 5 mg PO EVERY 6 HOURS as needed for pain 14 5 May 05, 2022 May 13, 2022 8:09am predniSONE 10 mg oral tablet (10 sources) Start: 01-26-2021 End: 02-07-2021 Prednisone 10 mg tablet Discontinued 10 mg PO daily 30 January 26, 2021 12:00am February 06, 2021 12:00am February 07, 2021 12:01am Take 4 tabs once daily days 1-3 3 tabs once daily days 4-6 2 tabs once daily days 7-9 and 1 tab once daily days 10-12. Problems Problem Classification Problem Date Documented Date Episodic/Chronic Abdominal pain (12 sources) Abdominal pain; Translations: [Unspecified abdominal pain] Episodic Appendicitis and other appendiceal conditions (12 sources) Acute appendicitis; Translations: [Unspecified acute appendicitis] Episodic Complications of surgical procedures or medical care (8 sources) Postoperative fever; Translations: [Postprocedural fever] Episodic Comment on above: Associated with a nu mber of systemic symptoms and now leukocytosis on CBC. All of this is suggestive of a underlying infectious etiology. As above, we are awaiting a CT of the abdomen pelvis to evaluate for possible postoperative abscess. 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 Pending CT of the abdomen pelvis as above Other skin disorders (2 sources) Generalized hyperhidrosis; Translations: [Generalized hyperhidrosis] Episodic Pneumonia (except that caused by tuberculosis or sexually transmitted disease) (3 sources) Pneumonia; Translations: [Pneumonia, unspecified organism] Onset: 07-06-2023 07-05-2023 Episodic Residual codes; unclassified (11 sources) Acquired absence of other specified parts of digestive tract; Translations: [Status post laparoscopic appendectomy] Episodic Sprains and strains (3 sources) Sprain of left ankle; Translations: [Sprain of unspecified ligament of left ankle, initial encounter] 09-27-2023 Episodic Unclassified (1 source) Presented to ED with a complaint of SOB, Can't catch breath 07-05-2023 Results Test Name Value Interpretation Reference Range Facility Absolute neutrophil countOrd ered By: Te Neville on 10-19-2024 Neutrophils (Bld) [#/Vol] 2.7 10*3/uL 2.0-7.[address] [facility] Anion gap in Serum or Plasma Ordered By: Te Neville on 10-19-2024 Anion gap [Moles/Vol] 10 mmol/L 5-15 [facility] BUN/creatinine ratioOrdered By: Te Neville on 10-19-2024 Urea nitrogen/Creatinine [Mass ratio] 12.1 mg/mg 10-[address] [facility] Basophil percentageOrdered B y: Te Neville on 10-19-2024 Basophils/100 WBC (Bld) 0.4 % 0-1 [facility] Bilirubin, totalOrdered By: Te Neville on 10-19-2024 Bilirubin [Mass/Vol] 0.59 mg/dL 0.00-1.30 [facility] CBC W/Diff, Automatedon Absolute Lymph 1.70 X10 3/uL Normal 0.83-4.[address] [facility] Comment on above: Order Comment: Order Date: 10/19/24 Order Info: [id number] - CBCD Performed By: #### L 100.0100, L500.4050, L500.4100, [id number] #### [facility] [address] [place], [address] Absolute Neut 2.7 X10 3/uL Normal 2.0-7.[address] [facility] Comment on above: Order Comment: Order Date: 10/19/24 Order Info: [id number] - CBCD Performed By: #### L 100.0100, L500.4050, L500.4100, [id number] #### [facility] [address] [place], [address] Basophils/100 WBC (Bld) 0.4 % Normal 0-1 [facility] Comment on above: Order Comment: Order Date: 10/19/24 Order Info: [id number] - CBCD Performed By: #### L 100.0100, L500.4050, L500.4100, [id number] #### [facility] [address] [place], [address] Eosinophils/100 WBC (Bld) 4.3 % Normal 0-[address] [facility] Comment on above: Order Comment: Order Date: 10/19/24 Order Info: [id number] - CBCD Performed By: #### L 100.0100, L500.4050, L500.4100, [id number] #### [facility] [address] [place], [address] Erythrocyte distribution width (RBC) [Ratio] 13.4 % Normal 11.6-14.[address] [facility] Comment on above: Order Comment: Order Date: 10/19/24 Order Info: [id number] - CBCD Performed By: #### L 100.0100, L500.4050, L500.4100, [id number] #### [facility] [address] [place], [address] Hematocrit (Bld) [Volume fraction] 41.1 % Normal 40-[address] [facility] Comment on above: Order Comment: Order Date: 10/19/24 Order Info: 0184-1 - CBCD Performed By: #### L 100.0100, L500.4050, L500.4100, [id number] #### [facility] [address] [place], [address] Hemoglobin (Bld) [Mass/Vol] 13.7 g/dL Normal 13.0-16.[address] [facility] Comment on above: Order Comment: Order Date: 10/19/24 Order Info: 0184-1 - CBCD Performed By: #### L 100.0100, L500.4050, L500.4100, [id number] #### [facility] [address] [place], [address] IG% 0.200 Normal 0.0-0.[address] [facility] Comment on above: Order Comment: Order Date: 10/19/24 Order Info: [id number]- - CBCD Result Comment: IG% - Immature Granulocytes (promyelocytes, myelocytes and metamyelocytes) > 1% indicates that a LEFT SHIFT is Present. Performed By: #### L 100.0100, L500.4050, L500.4100, [id number] #### [facility] [address] [place], [address] Lymphocytes/100 WBC (Bld) 33.1 % Normal 19-[address] [facility] Comment on above: Order Comment: Order Date: 10/19/24 Order Info: 0184-1 - CBCD Performed By: #### L 100.0100, L500.4050, L500.4100, [id number] #### [facility] [address] [place], [address] MCH (RBC) [Entitic mass] 27.4 pg Normal 27.0-32.[address] [facility] Comment on above: Order Comment: Order Date: 10/19/24 Order Info: [id number] - CBCD Performed By: #### L 100.0100, L500.4050, L500.4100, [id number] #### [facility] [address] [place], [address] MCHC (RBC) [Mass/Vol] 33.3 g/dL Normal 32-36 [facility] Comment on above: Order Comment: Order Date: 10/19/24 Order Info: 0184-1 - CBCD Performed By: #### L 100.0100, L500.4050, L500.4100, [id number] #### [facility] [address] [place], [address] MCV (RBC) [Entitic vol] 82.2 fL Normal 80-94 [facility] Comment on above: Order Comment: Order Date: 10/19/24 Order Info: 0184-1 - CBCD Performed By: #### L 100.0100, L500.4050, L500.4100, [id number] #### [facility] [address] [place], [address] Monocytes/100 WBC (Bld) 9.5 % Normal 0-10 [facility] Comment on above: Order Comment: Order Date: 10/19/24 Order Info: 0184-1 - CBCD Performed By: #### L 100.0100, L500.4050, L500.4100, [id number] #### [facility] [address] [place], [address] Neutrophils/100 WBC (Bld) 52.5 % Normal 47-[address] [facility] Comment on above: Order Comment: Order Date: 10/19/24 Order Info: 0184-1 - CBCD Performed By: #### L 100.0100, L500.4050, L500.4100, [id number] #### [facility] [address] [place], [address] Nucleated RBC (Bld) [#/Vol] 0 10*3/uL Normal 0-[address] [facility] Comment on above: Order Comment: Order Date: 10/19/24 Order Info: 0184-1 - CBCD Performed By: #### L 100.0100, L500.4050, L500.4100, [id number] #### [facility] [address] [place], [address] Platelet mean volume (Bld) [Entitic vol] 10.1 fL Normal 6.2-12.[address] [facility] Comment on above: Order Comment: Order Date: 10/19/24 Order Info: 0184-1 - CBCD Performed By: #### L 100.0100, L500.4050, L500.4100, [id number] #### [facility] [address] [place], [address] Platelets (Bld) [#/Vol] 232 10*3/uL Normal 150-[address] [facility] Comment on above: Order Comment: Order Date: 10/19/24 Order Info: [id number] - CBCD Performed By: #### L 100.0100, L500.4050, L500.4100, [id number] #### [facility] [address] [place], [address] RBC (Bld) [#/Vol] 5.00 10*6/uL Normal 4.6-6.2 [facility] Comment on above: Order Comment: Order Date: 10/19/24 Order Info: 0184-1 - CBCD Performed By: #### L 100.0100, L500.4050, L500.4100, [id number] #### [facility] [address] [place], [address] RDW SD 39.5 fl Normal 35.1-43.[address] [facility] Comment on above: Order Comment: Order Date: 10/19/24 Order Info: [id number] - CBCD Performed By: #### L 100.0100, L500.4050, L500.4100, [id number] #### [facility] [address] [place], [address] WBC (Bld) [#/Vol] 5.1 10*3/uL Normal 4.4-11.0 [facility] Comment on above: Order Comment: Order Date: 10/19/24 Order Info: [id number] - CBCD Performed By: #### L 100.0100, L500.4050, L500.4100, [id number] #### [facility] [address] [place], [address] Calculated very low density lipoprotein (VLDL) cholesterol measurementOrdered By: Te Neville on 10-19-2024 VLDL Cholesterol 17 mg/dL 5-[address] [facility] Carbon dioxide, total [Moles /volume] in Central venous bloodOrdered By: Te Neville on 10-19-2024 CO2 [Moles/Vol] 25.3 mmol/L 21.0-32.[address] [facility] Chloride assayOrdered By: Mignon Neville on 10-19-2024 Chloride [Moles/Vol] 104 mmol/L 98-108 [facility] Comprehensive Metabolic Prof ilon 10-19-2024 Albumin [Mass/Vol] 4.6 g/dL Normal 3.5-5.0 [facility] Comment on above: Order Comment: Order Date: 10/19/24 Order Info: [id number] - CMP Order Info: [id number] - LIPID Performed By: #### L 100.0100, L500.4050, L500.4100, [id number] #### [facility] [address] [place], [address] Albumin/Globulin [Mass ratio] 1.8 {ratio} Normal 0.9-2.[address] [facility] Comment on above: Order Comment: Order Date: 10/19/24 Order Info: [id number] - CMP Order Info: [id number] - LIPID Performed By: #### L 100.0100, L500.4050, L500.4100, [id number] #### [facility] [address] [place], [address] ALK PHOS 74 U/L Normal 40-[address] [facility] Comment on above: Order Comment: Order Date: 10/19/24 Order Info: [id number] - CMP Order Info: [id number] - LIPID Performed By: #### L 100.0100, L500.4050, L500.4100, [id number] #### [facility] [address] [place], [address] ALT [Catalytic activity/Vol] 24 U/L Normal <=[address] [facility] Comment on above: Order Comment: Order Date: 10/19/24 Order Info: [id number] - CMP Order Info: [id number] - LIPID Performed By: #### L 100.0100, L500.4050, L500.4100, [id number] #### [facility] [address] [place], [address] AST [Catalytic activity/Vol] 21 U/L Normal <=[address] [facility] Comment on above: Order Comment: Order Date: 10/19/24 Order Info: [id number]- - CMP Order Info: [id number] - LIPID Performed By: #### L 100.0100, L500.4050, L500.4100, [id number] #### [facility] [address] [place], [address] Bilirubin [Mass/Vol] 0.59 mg/dL Normal 0.00-1.30 [facility] Comment on above: Order Comment: Order Date: 10/19/24 Order Info: [id number] - CMP Order Info: [id number] - LIPID Performed By: #### L 100.0100, L500.4050, L500.4100, [id number] #### [facility] [address] [place], [address] BUN/CRE 12.1 RATIO Normal 10-[address] [facility] Comment on above: Order Comment: Order Date: 10/19/24 Order Info: [id number] - CMP Order Info: [id number] - LIPID Performed By: #### L 100.0100, L500.4050, L500.4100, [id number] #### [facility] [address] [place], [address] Calcium [Mass/Vol] 9.9 mg/dL Normal 7.6-11.0 [facility] Comment on above: Order Comment: Order Date: 10/19/24 Order Info: [id number] - CMP Order Info: [id number] - LIPID Performed By: #### L 100.0100, L500.4050, L500.4100, [id number] #### [facility] [address] [place], [address] Chloride [Moles/Vol] 104 mmol/L Normal 98-108 [facility] Comment on above: Order Comment: Order Date: 10/19/24 Order Info: [id number] - CMP Order Info: [id number] - LIPID Performed By: #### L 100.0100, L500.4050, L500.4100, [id number] #### [facility] [address] [place], [address] CO2 [Moles/Vol] 25.3 mmol/L Normal 21.0-32.[address] [facility] Comment on above: Order Comment: Order Date: 10/19/24 Order Info: [id number]- - CMP Order Info: [id number] - LIPID Performed By: #### L 100.0100, L500.4050, L500.4100, [id number] #### [facility] [address] [place], [address] Creatinine [Mass/Vol] 1.09 mg/dL Normal 0.70-1.20 [facility] Comment on above: Order Comment: Order Date: 10/19/24 Order Info: [id number] - CMP Order Info: [id number] - LIPID Performed By: #### L 100.0100, L500.4050, L500.4100, [id number] #### [facility] [address] [place], [address] GAP 10 Normal 5-[address] [facility] Comment on above: Order Comment: Order Date: 10/19/24 Order Info: [id number] - CMP Order Info: [id number] - LIPID Performed By: #### L 100.0100, L500.4050, L500.4100, [id number] #### [facility] [address] [place], [address] GFR/1.73 sq M.predicted among non-blacks MDRD (S/P/Bld) [Vol rate/Area] 89 mL/min/{1.73_m2} Normal >60 [facility] Comment on above: Order Comment: Order Date: 10/19/24 Order Info: [id number] - CMP Order Info: [id number] - LIPID Result Comment: mL/m in/1.73m2 CKD-EPI Creatinine Equation (2020) Performed By: #### L 100.0100, L500.4050, L500.4100, [id number] #### [facility] [address] [place], [address] Globulin (S) [Mass/Vol] 2.5 g/dL Normal 2.2-4.2 [facility] Comment on above: Order Comment: Order Date: 10/19/24 Order Info: [id number] - CMP Order Info: [id number] - LIPID Performed By: #### L 100.0100, L500.4050, L500.4100, [id number] #### [facility] [address] [place], [address] Glucose [Mass/Vol] 90 mg/dL Normal 70-99 [facility] Comment on above: Order Comment: Order Date: 10/19/24 Order Info: [id number] - CMP Order Info: [id number] - LIPID Performed By: #### L 100.0100, L500.4050, L500.4100, [id number] #### [facility] [address] [place], [address] Potassium [Moles/Vol] 4.9 mmol/L Normal 3.3-5.1 [facility] Comment on above: Order Comment: Order Date: 10/19/24 Order Info: [id number] - CMP Order Info: [id number] - LIPID Performed By: #### L 100.0100, L500.4050, L500.4100, [id number] #### [facility] [address] [place], [address] Sodium [Moles/Vol] 140 mmol/L Normal 133-145 [facility] Comment on above: Order Comment: Order Date: 10/19/24 Order Info: [id number] - CMP Order Info: [id number] - LIPID Performed By: #### L 100.0100, L500.4050, L500.4100, [id number] #### [facility] [address] [place], [address] T PROT 7.1 g/dL Normal 5.9-8.[address] [facility] Comment on above: Order Comment: Order Date: 10/19/24 Order Info: [id number] - CMP Order Info: [id number] - LIPID Performed By: #### L 100.0100, L500.4050, L500.4100, [id number] #### [facility] [address] [place], [address] Urea nitrogen [Mass/Vol] 13 mg/dL Normal 4-[address] [facility] Comment on above: Order Comment: Order Date: 10/19/24 Order Info: [id number] - CMP Order Info: [id number] - LIPID Performed By: #### L 100.0100, L500.4050, L500.4100, [id number] #### [facility] [address] [place], [address] Eosinophil percentageOrdered By: Te Neville on 10-19-2024 Eosinophils/100 WBC (Bld) 4.3 % 0-[address] [facility] Erythrocyte distribution wid th (RBC) [Ratio]Ordered By: Te Neville on 10-19-2024 Erythrocyte distribution width (RBC) [Entitic vol] 39.5 fL 35.1-43.9 [facility] Erythrocyte distribution wid th ratioOrdered By: Te Neville on 10-19-2024 Erythrocyte distribution width (RBC) [Ratio] 13.4 % 11.6-14.[address] [facility] GFR/1.73 sq M.predicted nichol g non-blacks MDRD (S/P/Bld) [Vol rate/Area]Ordered By: Te Neville on 10-19-2024 Estimated GFR (MDRD) Non-Af Amer 89 >[address] [facility] Comment on above: mL/min/1.73m2 CKD-EP I Creatinine Equation (2020) Hematocrit Auto (Bld) [Volum e fraction]Ordered By: Te Neville on 10-19-2024 Hematocrit (Bld) [Volume fraction] 41.1 % 40-[address] [facility] Hemoglobin A1con 10-19-2024 HbA1c (Bld) [Mass fraction] 5.2 % Low <=5.[address] [facility] Comment on above: Order Comment: Order Date: 10/19/24 Order Info: [id number] - A1C Performed By: #### L 100.0100, L500.4050, L500.4100, [id number] #### [facility] [address] [place] [address], [address] Hemoglobin A1c percentageOrd ered By: Te Neville on 10-19-2024 HbA1c (Bld) [Mass fraction] 5.2 % Low >5.[address] [facility] Hemoglobin measurementOrdere d By: Te Neville on 10-19-2024 Hemoglobin (Bld) [Mass/Vol] 13.7 g/dL 13.0-16.[address] [facility] Immature granulocytes/100 WB C Auto (Bld)Ordered By: Te Neville on 10-19-2024 Immature granulocytes/100 WBC (Bld) 0.200 % 0.0-0.[address] [facility] Comment on above: IG% - Immature Granu locytes (promyelocytes, myelocytes and metamyelocytes) > 1% indicates that a LEFT SHIFT is Present. LDL calc ser/plasOrdered By: Te Neville on 10-19-2024 LDL Cholesterol, Calculated 118 mg/dL [facility] Comment on above: Vhrmwvnbkn=790-654 m g/dL & Higher Oigb=340 mg/dL or greater Laboratory - Chemistry and C hemistry - challengeOrdered By: Te Neville on 10-19-2024 AST [Catalytic activity/Vol] 21 U/L <[address] [facility] Lipid Profileon 10-19-2024 CHOL:HDL 3.[address] [facility] Comment on above: Order Comment: Order Date: 10/19/24 Order Info: [id number] - CMP Order Info: [id number] - LIPID Performed By: #### L 100.0100, L500.4050, L500.4100, [id number] #### [facility] [address] [place], [address] Cholesterol [Mass/Vol] 181 mg/dL Normal <=200 [facility] Comment on above: Order Comment: Order Date: 10/19/24 Order Info: [id number] - CMP Order Info: [id number] - LIPID Result Comment: Chol esterol level, Desirable <200 mg/dL Borderline high cholesterol 200-239 mg/dL High cholesterol >=240 mg/dL Recommendations of the NCEP Adult Treatment Panel for the following risk-cutoff thresholds for the [place] population. Performed By: #### L 100.0100, L500.4050, L500.4100, [id number] #### [facility] [address] [place], [address] Cholesterol in HDL [Mass/Vol] 46 mg/dL Normal [facility] Comment on above: Order Comment: Order Date: 10/19/24 Order Info: [id number] - CMP Order Info: [id number] - LIPID Result Comment: [facility] onal Cholesterol Education Program (NCEP) guidelines: <40 mg/dL: Low HDL-cholesterol (major risk factor for CHD) >= 60 mg/dL: High HDL-cholesterol (negative risk factor for CHD) HDL-cholesterol is affected by a number of factors, e.g. smoking, exercise, hormones, sex and age. Performed By: #### L 100.0100, L500.4050, L500.4100, [id number] #### [facility] [address] [place], [address] Cholesterol in LDL [Mass/Vol] 118 mg/dL Normal [facility] Comment on above: Order Comment: Order Date: 10/19/24 Order Info: [id number] - CMP Order Info: [id number] - LIPID Result Comment: Bord bcptzq=188-632 mg/dL Higher Chel=345 mg/dL or greater Performed By: #### L 100.0100, L500.4050, L500.4100, L501.9985 #### [facility] [address] [place], [address] Cholesterol in VLDL [Mass/Vol] 17 mg/dL Normal 5-[address] [facility] Comment on above: Order Comment: Order Date: 10/19/24 Order Info: [id number] - CMP Order Info: [id number] - LIPID Performed By: #### L 100.0100, L500.4050, L500.4100, L501.9985 #### [facility] [address] [place], [address] Triglyceride [Mass/Vol] 84 mg/dL Normal [facility] Comment on above: Order Comment: Order Date: 10/19/24 Order Info: [id number] - CMP Order Info: [id number] - LIPID Result Comment: The drugs N-Acetylcysteine and Metamizole may falsely depress this assay. Normal range: <150 mg/dL Borderline High: 150-199 mg/dL High: 200-499 mg/dL Very High: >500 mg/dL Performed By: #### L 100.0100, L500.4050, L500.4100, L501.9985 #### [facility] [address] [place], [address] Lymphocytes Auto (Unsp spec) [#/Vol]Ordered By: Te Neville on 10-19-2024 Lymphocytes (Bld) [#/Vol] 1.70 10*3/uL 0.83-4.[address] [facility] Lymphocytes/100 WBC Auto (Un sp spec)Ordered By: Te Neville on 10-19-2024 Lymphocytes/100 WBC (Bld) 33.1 % 19-[address] [facility] MCV (mean corpuscular volume ) determinationOrdered By: Te Neville on 10-19-2024 MCV (RBC) [Entitic vol] 82.2 fL 80-94 [facility] Mean corpuscular hemoglobin (MCH) determinationOrdered By: Te Neville on 10-19-2024 MCH (RBC) [Entitic mass] 27.4 pg 27.0-32.[address] [facility] Mean corpuscular hemoglobin concentration (MCHC) determinationOrdered By: Te Neville on 10-19-2024 MCHC (RBC) [Mass/Vol] 33.3 g/dL 32-36 [facility] Mean platelet volume determi nationOrdered By: Te Neville on 10-19-2024 Platelet mean volume (Bld) [Entitic vol] 10.1 fL 6.2-12.[address] [facility] Monocyte percentageOrdered B y: Te Neville on 10-19-2024 Monocytes/100 WBC (Bld) 9.5 % 0-10 [facility] Neutrophil percentageOrdered By: Te Neville on 10-19-2024 Neutrophils/100 WBC (Bld) 52.5 % 47-[address] [facility] Nucleated red blood cell per centageOrdered By: Te Neville on 10-19-2024 Nucleated RBC/100 WBC (Bld) [Ratio] 0 % 0-[address] [facility] Platelet countOrdered By: Mignon Neville on 10-19-2024 Platelets (Bld) [#/Vol] 232 10*3/uL 150-[address] [facility] Potassium (Unsp spec) [Mass/ Vol]Ordered By: Te Neville on 10-19-2024 Potassium [Moles/Vol] 4.9 mmol/L 3.3-5.1 [facility] RBC Auto (Bld) [#/Vol]Ordere d By: Te Neville on 10-19-2024 RBC (Bld) [#/Vol] 5.00 10*6/uL 4.6-6.2 [facility] total cholesterol/ high density lipoprotein (HDL) cholesterol ratioOrdered By: Te Neville on 10-19-2024 Cholesterol.total/Cholest vivien in HDL [Mass ratio] 3.95 {ratio} [facility] Serum creatinine measurement (mass/volume)Ordered By: Te Neville on 10-19-2024 Creatinine [Mass/Vol] 1.09 mg/dL 0.70-1.20 [facility] Serum globulin measurementOr dered By: Te Neville on 10-19-2024 Globulin (S) [Mass/Vol] 2.5 g/dL 2.2-4.2 [facility] Serum glucose measurement (m ass/volume)Ordered By: Te Neville on 10-19-2024 Glucose [Mass/Vol] 90 mg/dL 70-99 [facility] Serum or plasma alanine guadarrama otransferase (ALT) measurementOrdered By: Te Neville on 10-19-2024 ALT [Catalytic activity/Vol] 24 U/L <[address] [facility] Serum or plasma albumin karlene urement (mass/volume)Ordered By: Te Neville on 10-19-2024 Albumin [Mass/Vol] 4.6 g/dL 3.5-5.0 [facility] Serum or plasma albumin/glob ulin mass ratioOrdered By: Te Neville on 10-19-2024 Albumin/Globulin [Mass ratio] 1.8 {ratio} 0.9-2.[address] [facility] Serum or plasma alkaline jyoti sphatase measurementOrdered By: Te Neville on 10-19-2024 ALP [Catalytic activity/Vol] 74 U/L 40-[address] [facility] Serum or plasma calcium karlene urement (mass/volume)Ordered By: Te Neville on 10-19-2024 Calcium [Mass/Vol] 9.9 mg/dL 7.6-11.0 [facility] Serum or plasma cholesterol in HDL measurement (mass/volume)Ordered By: Te Neville on 10-19-2024 Cholesterol in HDL [Mass/Vol] 46 mg/dL >[address] [facility] Comment on above: National Cholesterol Education Program (NCEP) guidelines:<40 mg/dL: Low HDL-cholesterol (major risk factor for CHD)>= 60 mg/dL: High HDL-cholesterol (negative risk factor for CHD)HDL-cholesterol is affected by a number of factors, e.g. smoking, exercise, hormones, sex and age. Serum or plasma cholesterol measurement (mass/volume)Ordered By: Te Neville on 10-19-2024 Cholesterol [Mass/Vol] 181 mg/dL <201 [facility] Comment on above: Cholesterol level, D esirable <200 mg/dLBorderline high cholesterol 200-239 mg/dLHigh cholesterol >=240 mg/dLRecommendations of the NCEP Adult Treatment Panel for the following risk-cutoff thresholds for the [place] population. Serum or plasma urea nitroge n measurement (mass/volume)Ordered By: Te Neville on 10-19-2024 Urea nitrogen [Mass/Vol] 13 mg/dL 4-[address] [facility] Sodium levelOrdered By: Te Neville on 10-19-2024 Sodium [Moles/Vol] 140 mmol/L 133-145 [facility] Total proteinOrdered By: Long Neville on 10-19-2024 Protein [Mass/Vol] 7.1 g/dL 5.9-8.4 [facility] Triglycerides measurementOrd ered By: Te Neville on 10-19-2024 Triglyceride [Mass/Vol] 84 mg/dL <199 [facility] Comment on above: The drugs N-Acetylcy steine and Metamizole may falsely depress this assay. Normal range: <150 mg/dLBorderline High: 150-199 mg/dLHigh: 200-499 mg/dLVery High: >500 mg/dL White blood cell (WBC) count Ordered By: Te Neville on 10-19-2024 WBC (Bld) [#/Vol] 5.1 10*3/uL 4.4-11.0 [facility] Absolute lymphocyte countOrd ered By: Te Neville on 10-28-2023 Lymphocytes Auto (Unsp spec) [#/Vol] 1.90 10*3/uL 0.83-4.[address] [facility] Automated lymphocyte count a s percentage of total leukocytesOrdered By: Te Neivlle on 10-28-2023 Lymphocytes/100 WBC Auto (Unsp spec) 32.7 % 19-[address] [facility] Basophil percentageOrdered B y: Te Neville on 10-28-2023 Basophils/100 WBC (Bld) 0.3 % 0-1 [facility] Bilirubin [Mass/Vol] 0.70 mg/dL 0.20-1.00 [facility] Comment on above: For patients on eltr ombopag therapy, use of Dimension Campbell TBIL is not recommended. Chloride [Moles/Vol] 106 mmol/L 98-107 [facility] Cholesterol [Mass/Vol] 210 mg/dL <200 [facility] Comment on above: <200 mg/dL Desirable 200-240 mg/dL Borderline >240 mg/dL High Risk Eosinophils/100 WBC (Bld) 2.2 % 0-[address] [facility] Glucose [Mass/Vol] 109 mg/dL 74-106 [facility] Comment on above: Fasting Glucose resu lt from 100 to 125 mg/dL suggests IMPAIRED HOMEOSTASIS per A.D.A. criteria. Hemoglobin (Bld) [Mass/Vol] 13.9 g/dL 13.0-16.[address] [facility] Monocytes/100 WBC (Bld) 9.8 % 0-10 [facility] Neutrophils (Bld) [#/Vol] 3.2 10*3/uL 2.0-7.[address] [facility] Neutrophils/100 WBC (Bld) 54.7 % 47-[address] [facility] Potassium [Moles/Vol] 4.5 mmol/L 3.5-5.1 [facility] Protein [Mass/Vol] 7.5 g/dL 6.4-8.2 [facility] Sodium [Moles/Vol] 139 mmol/L 136-145 [facility] Triglyceride [Mass/Vol] 139 mg/dL <199 [facility] Comment on above: The drugs N-Acetylcy steine and Metamizole may falsely depress this assay.Serum Triglycerides Reference Interval Normal <150 mg/dL Borderline high 150 - 199 mg/dL High 200 - 499 mg/dL Very High > or = 500 mg/dL WBC (Bld) [#/Vol] 5.8 10*3/uL 4.4-11.0 [facility] CBC W/Diff, Automatedon 10-12 Absolute Lymph 1.90 X10 3/uL Normal 0.83-4.[address] [facility] Comment on above: Order Comment: Order Date: 10/28/23 Order Info: [id number] - CBCD Performed By: #### L 500.4050, L500.4100, L100.0100 #### [facility] [address] [place], [address] Absolute Neut 3.2 X10 3/uL Normal 2.0-7.[address] [facility] Comment on above: Order Comment: Order Date: 10/28/23 Order Info: [id number] - CBCD Performed By: #### L 500.4050, L500.4100, L100.0100 #### [facility] [address] [place], [address] Basophils/100 WBC (Bld) 0.3 % Normal 0-1 [facility] Comment on above: Order Comment: Order Date: 10/28/23 Order Info: 0184-1 - CBCD Performed By: #### L 500.4050, L500.4100, L100.0100 #### [facility] [address] [place], [address] Eosinophils/100 WBC (Bld) 2.2 % Normal 0-[address] [facility] Comment on above: Order Comment: Order Date: 10/28/23 Order Info: 0184-1 - CBCD Performed By: #### L 500.4050, L500.4100, L100.0100 #### [facility] [address] [place], [address] Erythrocyte distribution width (RBC) [Ratio] 13.3 % Normal 11.6-14.[address] [facility] Comment on above: Order Comment: Order Date: 10/28/23 Order Info: 0184-1 - CBCD Performed By: #### L 500.4050, L500.4100, L100.0100 #### [facility] [address] [place], [address] Hematocrit (Bld) [Volume fraction] 40.9 % Normal 40-[address] [facility] Comment on above: Order Comment: Order Date: 10/28/23 Order Info: 0184-1 - CBCD Performed By: #### L 500.4050, L500.4100, L100.0100 #### [facility] [address] [place], [address] Hemoglobin (Bld) [Mass/Vol] 13.9 g/dL Normal 13.0-16.[address] [facility] Comment on above: Order Comment: Order Date: 10/28/23 Order Info: 018- - CBCD Performed By: #### L 500.4050, L500.4100, L100.0100 #### [facility] [address] [place], [address] IG% 0.300 Normal 0.0-0.[address] [facility] Comment on above: Order Comment: Order Date: 10/28/23 Order Info: 018- - CBCD Result Comment: IG% - Immature Granulocytes (promyelocytes, myelocytes and metamyelocytes) > 1% indicates that a LEFT SHIFT is Present. Performed By: #### L 500.4050, L500.4100, L100.0100 #### [facility] [address] [place], [address] Lymphocytes/100 WBC (Bld) 32.7 % Normal 19-[address] [facility] Comment on above: Order Comment: Order Date: 10/28/23 Order Info: [id number]- - CBCD Performed By: #### L 500.4050, L500.4100, L100.0100 #### [facility] [address] [place], [address] MCH (RBC) [Entitic mass] 27.8 pg Normal 27.0-32.[address] [facility] Comment on above: Order Comment: Order Date: 10/28/23 Order Info: 0184- - CBCD Performed By: #### L 500.4050, L500.4100, L100.0100 #### [facility] [address] [place], [address] MCHC (RBC) [Mass/Vol] 34.0 g/dL Normal 32-36 [facility] Comment on above: Order Comment: Order Date: 10/28/23 Order Info: 0184-1 - CBCD Performed By: #### L 500.4050, L500.4100, L100.0100 #### [facility] [address] [place], [address] MCV (RBC) [Entitic vol] 81.8 fL Normal 80-94 [facility] Comment on above: Order Comment: Order Date: 10/28/23 Order Info: 0184-1 - CBCD Performed By: #### L 500.4050, L500.4100, L100.0100 #### [facility] [address] [place], [address] Monocytes/100 WBC (Bld) 9.8 % Normal 0-10 [facility] Comment on above: Order Comment: Order Date: 10/28/23 Order Info: 0184-1 - CBCD Performed By: #### L 500.4050, L500.4100, L100.0100 #### [facility] [address] [place], [address] Neutrophils/100 WBC (Bld) 54.7 % Normal 47-[address] [facility] Comment on above: Order Comment: Order Date: 10/28/23 Order Info: 0184-1 - CBCD Performed By: #### L 500.4050, L500.4100, L100.0100 #### [facility] [address] [place], [address] Nucleated RBC (Bld) [#/Vol] 0 10*3/uL Normal 0-[address] [facility] Comment on above: Order Comment: Order Date: 10/28/23 Order Info: 0184-1 - CBCD Performed By: #### L 500.4050, L500.4100, L100.0100 #### [facility] [address] [place], [address] Platelet mean volume (Bld) [Entitic vol] 10.0 fL Normal 6.2-12.[address] [facility] Comment on above: Order Comment: Order Date: 10/28/23 Order Info: 0184-1 - CBCD Performed By: #### L 500.4050, L500.4100, L100.0100 #### [facility] [address] [place], [address] Platelets (Bld) [#/Vol] 250 10*3/uL Normal 150-[address] [facility] Comment on above: Order Comment: Order Date: 10/28/23 Order Info: 0184-1 - CBCD Performed By: #### L 500.4050, L500.4100, L100.0100 #### [facility] [address] [place], [address] RBC (Bld) [#/Vol] 5.00 10*6/uL Normal 4.6-6.2 [facility] Comment on above: Order Comment: Order Date: 10/28/23 Order Info: 0184-1 - CBCD Performed By: #### L 500.4050, L500.4100, L100.0100 #### [facility] [address] [place], [address] RDW SD 39.1 fl Normal 35.1-43.[address] [facility] Comment on above: Order Comment: Order Date: 10/28/23 Order Info: 0184-1 - CBCD Performed By: #### L 500.4050, L500.4100, L100.0100 #### [facility] [address] [place], [address] WBC (Bld) [#/Vol] 5.8 10*3/uL Normal 4.4-11.0 [facility] Comment on above: Order Comment: Order Date: 10/28/23 Order Info: 0184-1 - CBCD Performed By: #### L 500.4050, L500.4100, L100.0100 #### [facility] [address] [place], [address] Comprehensive Metabolic Prof ilon 10-28-2023 Albumin [Mass/Vol] 4.2 g/dL Normal 3.2-5.0 [facility] Comment on above: Order Comment: Order Date: 10/28/23 Order Info: [id number] - CMP Order Info: [id number] - LIPID Performed By: #### L 500.4050, L500.4100, L100.0100 #### [facility] [address] [place], [address] Albumin/Globulin [Mass ratio] 1.3 {ratio} Normal 0.9-2.[address] [facility] Comment on above: Order Comment: Order Date: 10/28/23 Order Info: [id number] - CMP Order Info: [id number] - LIPID Performed By: #### L 500.4050, L500.4100, L100.0100 #### [facility] [address] [place], [address] ALK P 77 U/L Normal 45-[address] [facility] Comment on above: Order Comment: Order Date: 10/28/23 Order Info: [id number] - CMP Order Info: [id number] - LIPID Performed By: #### L 500.4050, L500.4100, L100.0100 #### [facility] [address] [place], [address] ALT [Catalytic activity/Vol] 38 U/L Normal 16-[address] [facility] Comment on above: Order Comment: Order Date: 10/28/23 Order Info: [id number] - CMP Order Info: [id number] - LIPID Performed By: #### L 500.4050, L500.4100, L100.0100 #### [facility] [address] [place], [address] AST [Catalytic activity/Vol] 18 U/L Normal 15-[address] [facility] Comment on above: Order Comment: Order Date: 10/28/23 Order Info: [id number] - CMP Order Info: [id number] - LIPID Performed By: #### L 500.4050, L500.4100, L100.0100 #### [facility] [address] [place], [address] Bilirubin [Mass/Vol] 0.70 mg/dL Normal 0.20-1.00 [facility] Comment on above: Order Comment: Order Date: 10/28/23 Order Info: 07 - CMP Order Info: [id number] - LIPID Result Comment: For patients on eltrombopag therapy, use of Dimension Campbell TBIL is not recommended. Performed By: #### L 500.4050, L500.4100, L100.0100 #### [facility] [address] [place], [address] BUN/CRE 14.3 RATIO Normal 10-[address] [facility] Comment on above: Order Comment: Order Date: 10/28/23 Order Info: 0786- - CMP Order Info: [id number] - LIPID Performed By: #### L 500.4050, L500.4100, L100.0100 #### [facility] [address] [place], [address] CA,Total 9.5 mg/dL Normal 8.5-10.[address] [facility] Comment on above: Order Comment: Order Date: 10/28/23 Order Info: [id number] - CMP Order Info: [id number] - LIPID Performed By: #### L 500.4050, L500.4100, L100.0100 #### [facility] [address] [place], [address] Chloride [Moles/Vol] 106 mmol/L Normal 98-107 [facility] Comment on above: Order Comment: Order Date: 10/28/23 Order Info: [id number] - CMP Order Info: [id number] - LIPID Performed By: #### L 500.4050, L500.4100, L100.0100 #### [facility] [address] [place], [address] CO2 [Moles/Vol] 27.0 mmol/L Normal 21.0-32.[address] [facility] Comment on above: Order Comment: Order Date: 10/28/23 Order Info: 07- - CMP Order Info: [id number] - LIPID Performed By: #### L 500.4050, L500.4100, L100.0100 #### [facility] [address] [place], [address] Creatinine [Mass/Vol] 1.05 mg/dL Normal 0.70-1.30 [facility] Comment on above: Order Comment: Order Date: 10/28/23 Order Info: 07 - CMP Order Info: [id number] - LIPID Result Comment: The validity of the calculated GFR GFRAA in patients over 70 years has not been determined. Clinical correlation is essential. Performed By: #### L 500.4050, L500.4100, L100.0100 #### [facility] [address] [place], [address] EST GFR - AA 101 mL/min Normal >[address] [facility] Comment on above: Order Comment: Order Date: 10/28/23 Order Info: [id number]- - CMP Order Info: [id number] - LIPID Result Comment: Afri can [place] GFR Calc Performed By: #### L 500.4050, L500.4100, L100.0100 #### [facility] [address] [place], [address] GAP 6 Normal 5-[address] [facility] Comment on above: Order Comment: Order Date: 10/28/23 Order Info: [id number] - CMP Order Info: [id number] - LIPID Performed By: #### L 500.4050, L500.4100, L100.0100 #### [facility] [address] [place], [address] GFR/1.73 sq M.predicted among non-blacks MDRD (S/P/Bld) [Vol rate/Area] 84 mL/min/{1.73_m2} Normal >60 [facility] Comment on above: Order Comment: Order Date: 10/28/23 Order Info: [id number] - CMP Order Info: [id number] - LIPID Result Comment: Non- GFR Calc Performed By: #### L 500.4050, L500.4100, L100.0100 #### [facility] [address] [place], [address] Globulin (S) [Mass/Vol] 3.3 g/dL Normal 2.2-4.2 [facility] Comment on above: Order Comment: Order Date: 10/28/23 Order Info: [id number] - CMP Order Info: [id number] - LIPID Performed By: #### L 500.4050, L500.4100, L100.0100 #### [facility] [address] [place], [address] Glucose [Mass/Vol] 109 mg/dL High 74-106 [facility] Comment on above: Order Comment: Order Date: 10/28/23 Order Info: [id number] - CMP Order Info: [id number] - LIPID Result Comment: Fast ing Glucose result from 100 to 125 mg/dL suggests IMPAIRED HOMEOSTASIS per A.D.A. criteria. Performed By: #### L 500.4050, L500.4100, L100.0100 #### [facility] [address] [place], [address] Potassium [Moles/Vol] 4.5 mmol/L Normal 3.5-5.1 [facility] Comment on above: Order Comment: Order Date: 10/28/23 Order Info: [id number] - CMP Order Info: [id number] - LIPID Performed By: #### L 500.4050, L500.4100, L100.0100 #### [facility] [address] [place], [address] Sodium [Moles/Vol] 139 mmol/L Normal 136-145 [facility] Comment on above: Order Comment: Order Date: 10/28/23 Order Info: [id number] - CMP Order Info: [id number] - LIPID Performed By: #### L 500.4050, L500.4100, L100.0100 #### [facility] [address] [place], [address] T PROT 7.5 g/dL Normal 6.4-8.[address] [facility] Comment on above: Order Comment: Order Date: 10/28/23 Order Info: [id number] - CMP Order Info: [id number] - LIPID Performed By: #### L 500.4050, L500.4100, L100.0100 #### [facility] [address] [place], [address] Urea nitrogen [Mass/Vol] 15 mg/dL Normal 7-[address] [facility] Comment on above: Order Comment: Order Date: 10/28/23 Order Info: [id number] - CMP Order Info: [id number] - LIPID Performed By: #### L 500.4050, L500.4100, L100.0100 #### [facility] [address] [place], [address] Determination of erythrocyte mean corpuscular volume (MCV)Ordered By: Te Neville on 10-28-2023 MCV (RBC) [Entitic vol] 81.8 fL 80-94 [facility] Erythrocyte distribution wid th ratioOrdered By: Te Neville on 10-28-2023 Erythrocyte distribution width (RBC) [Ratio] 13.3 % 11.6-14.[address] [facility] Erythrocyte distribution wid th standard deviationOrdered By: Te Neville on 10-28-2023 Erythrocyte distribution width (RBC) [Entitic vol] 39.1 fL 35.1-43.9 [facility] Hematocrit Auto (Bld) [Volum e fraction]Ordered By: Te Neville on 10-28-2023 Hematocrit (Bld) [Volume fraction] 40.9 % 40-[address] [facility] Hemoglobin A1con 10-28-2023 HbA1c (Bld) [Mass fraction] 5.3 % Normal 3.8-5.[address] [facility] Comment on above: Order Comment: DEEPTI Lucas ADD ON TO BLOOD IN LAB, THANKS Result Comment: Norm al < 5.7 % Prediabetic 5.7 - 6.4 % Diabetic >or= 6.5 % Please note range changes. Performed By: #### L 501.9985 #### [facility] [address] [place], [address] Immature granulocytes/100 WB C Auto (Bld)Ordered By: Te Neville on 10-28-2023 Immature granulocytes/100 WBC (Bld) 0.300 % 0.0-0.[address] [facility] Comment on above: IG% - Immature Granu locytes (promyelocytes, myelocytes and metamyelocytes) > 1% indicates that a LEFT SHIFT is Present. Laboratory - Chemistry and C hemistry - challengeOrdered By: Te Neville on 10-28-2023 Albumin/Globulin [Mass ratio] 1.3 {ratio} 0.9-2.[address] [facility] ALP [Catalytic activity/Vol] 77 U/L 45-[address] [facility] ALT [Catalytic activity/Vol] 38 U/L 16-[address] [facility] Cholesterol in HDL [Mass/Vol] 42 mg/dL >[address] [facility] Comment on above: The drugs N-Acetylcy steine and Metamizole may falsely depress this assay. Reference Range HDL <40 mg/dL Low HDL Cholesterol HDL >or= 60 mg/dL High HDL Cholesterol Cholesterol in LDL [Mass/Vol] 140 mg/dL 0-[address] [facility] CO2 [Moles/Vol] 27.0 mmol/L 21.0-32.[address] [facility] Globulin (S) [Mass/Vol] 3.3 g/dL 2.2-4.2 [facility] Urea nitrogen/Creatinine [Mass ratio] 14.3 mg/mg 10-[address] [facility] - Hematology and Cell countsOrdered By: Te Neville on 10-28-2023 MCH (RBC) [Entitic mass] 27.8 pg 27.0-32.[address] [facility] MCHC (RBC) [Mass/Vol] 34.0 g/dL 32-36 [facility] Nucleated RBC/100 WBC (Bld) [Ratio] 0 % 0-[address] [facility] Platelet mean volume (Bld) [Entitic vol] 10.0 fL 6.2-12.[address] [facility] Platelets (Bld) [#/Vol] 250 10*3/uL 150-[address] [facility] Lipid Profileon 10-28-2023 Cholesterol [Mass/Vol] 210 mg/dL High 200 [facility] Comment on above: Order Comment: Order Date: 10/28/23 Order Info: [id number] - CMP Order Info: [id number] - LIPID Result Comment: <200 mg/dL Desirable 200-240 mg/dL Borderline >240 mg/dL High Risk Performed By: #### L 500.4050, L500.4100, L100.0100 #### [facility] [address] [place], [address] Cholesterol in HDL [Mass/Vol] 42 mg/dL Normal [facility] Comment on above: Order Comment: Order Date: 10/28/23 Order Info: [id number] - CMP Order Info: [id number] - LIPID Result Comment: The drugs N-Acetylcysteine and Metamizole may falsely depress this assay. Reference Range HDL <40 mg/dL Low HDL Cholesterol HDL >or= 60 mg/dL High HDL Cholesterol Performed By: #### L 500.4050, L500.4100, L100.0100 #### [facility] [address] [place] [place], [address] Cholesterol in LDL [Mass/Vol] 140 mg/dL High 0-[address] [facility] Comment on above: Order Comment: Order Date: 10/28/23 Order Info: [id number] - CMP Order Info: [id number] - LIPID Performed By: #### L 500.4050, L500.4100, L100.0100 #### [facility] [address] [place], [address] Cholesterol in VLDL [Mass/Vol] 28 mg/dL Normal 5-[address] [facility] Comment on above: Order Comment: Order Date: 10/28/23 Order Info: [id number] - CMP Order Info: [id number] - LIPID Performed By: #### L 500.4050, L500.4100, L100.0100 #### [facility] [address] [place], [address] Triglyceride [Mass/Vol] 139 mg/dL Normal [facility] Comment on above: Order Comment: Order Date: 10/28/23 Order Info: [id number] - CMP Order Info: [id number] - LIPID Result Comment: The drugs N-Acetylcysteine and Metamizole may falsely depress this assay. Serum Triglycerides Reference Interval Normal <150 mg/dL Borderline high 150 - 199 mg/dL High 200 - 499 mg/dL Very High > or = 500 mg/dL Performed By: #### L 500.4050, L500.4100, L100.0100 #### [facility] [address] [place], [address] No Panel InformationOrdered By: Te Neville on 10-28-2023 Estimated GFR (MDRD) Amer 101 mL/min >[address] [facility] Comment on above: GFR Calc Estimated GFR (MDRD) Non-Af Amer 84 mL/min >[address] [facility] Comment on above: Non- GFR Calc VLDL Cholesterol 28 mg/dL 5-[address] [facility] RBC Auto (Bld) [#/Vol]Ordere d By: Te Neville on 10-28-2023 RBC (Bld) [#/Vol] 5.00 10*6/uL 4.6-6.2 [facility] Serum or plasma calcium karlene urement (mass/volume)Ordered By: Te Neville on 10-28-2023 Calcium [Mass/Vol] 9.5 mg/dL 8.5-10.1 [facility] Serum or plasma creatinine m easurement (mass/volume)Ordered By: Te Neville on 10-28-2023 Creatinine [Mass/Vol] 1.05 mg/dL 0.70-1.30 [facility] Comment on above: The validity of the calculated GFR & GFRAA in patients over 70 years has not been determined. Clinical correlation is essential. Serum or plasma urea nitroge n measurement (mass/volume)Ordered By: Te Neville on 10-28-2023 Urea nitrogen [Mass/Vol] 15 mg/dL 7-[address] [facility] Thin prep Papanicolaou smear with manual screeningOrdered By: Te Neville on 10-28-2023 Thin prep Papanicolaou smear with manual screening 4.2 g/dL 3.2-5.[address] [facility] Thin prep Papanicolaou smear with manual screening 18 U/L 15-[address] [facility] Thin prep Papanicolaou smear with manual screening 6 5-[address] [facility] Whole blood hemoglobin A1c/t otal hemoglobin ratio (mass fraction)Ordered By: Te Neville on 10-28-2023 HbA1c (Bld) [Mass fraction] 5.3 % 3.8-5.[address] [facility] Comment on above: Normal < 5.7 % Predi abetic 5.7 - 6.4 % Diabetic >or= 6.5 % Please note range changes. [facility] 07-[facility]-2023 [place] [address] CT Scan Report Signed Patient Name: Esteban Grossman Date of : 1985 Account #:[id number] Age/Sex: 38 / M Location: [address] [place] [address] Attending physician: Aaron Olivera MD Ordering Provider: Ester Hernandez CNP Date of Service: 07/05/23 Procedure(s): CT angio chest PE protocol HISTORY: Coughing up blood in . Chest pain with inspiration for 3 weeks. Pneumonia Study: CT angiography of the chest dated 07/05/2023. 1904 hours. TECHNIQUE: Axial images were obtained from the thoracic inlet down to the adrenal glands. Coronal and sagittal reconstruction imaging as well as 3D reconstructions including MIP imaging was performed. 100 ml Visipaque 320 was injected. Individualized dose optimization techniques were used for the study. Findings: The aorta and pulmonary arteries are normal in caliber. There is no evidence of pulmonary embolus. The mediastinum is clear. The heart size is normal. Dense consolidation is present with air bronchograms in the left lower lobe consistent with pneumonia. Visualized portions of the liver, spleen, and kidneys are normal. IMPRESSION: Left lower lobe pneumonia. No evidence of pulmonary embolus. A preliminary report was provided by virtual radiologic at 8:40 p.m. 07/05/2023. Dictated By: Lev Palafox MD Signed By: 07/06/23 1016 DD/ 1012 TD/TT: 07/06/23 1012 Ad Operations Intern: NATO Exam/Order Verified? Y Exam Explained to Patient/Family? Y Was Patient Shielded? N Is Patient ? Consent Form Completed? Hx Last Menstrual Period: Does Patient have a Diabetic Device? No Diabetic Device Type: Was the Diabetic Device Removed? If NO: was Removal Consent form completed? Patient was informed of radiation exposure prior to scan? Verified by Technologist:[id number] Comment: [phone] cc: Ester Hernandez, REHABILITATION TEAM LEAD Aaron Olivera MD PCP,No Normal [facility] Basic Metabolic Panelon 12-2 Anion gap [Moles/Vol] 13 mmol/L Normal 5-13 [facility] Comment on above: Performed By: #### D DIMER #### [facility] [address] [place] [address] Calcium [Mass/Vol] 9.1 mg/dL Normal 8.4-10.2 [facility] Comment on above: Performed By: #### D DIMER #### [facility] [address] [place] [address] Chloride [Moles/Vol] 102 mmol/L Normal 98-107 [facility] Comment on above: Performed By: #### D DIMER #### [facility] [address] [place] [address] CO2 [Moles/Vol] 22 mmol/L Normal 22-29 [facility] Comment on above: Performed By: #### D DIMER #### [facility] [address] [place] [address] Creatinine [Mass/Vol] 1.27 mg/dL High 0.72-1.25 [facility] Comment on above: Performed By: #### D DIMER #### [facility] [address] [place] [address] Glomerular Filtration Rate >60 Normal mL/min/1.73m2 [facility] Comment on above: Performed By: #### D DIMER #### [facility] [address] [place] [address] Glucose [Mass/Vol] 120 mg/dL High 70-100 [facility] Comment on above: Performed By: #### D DIMER #### [facility] [address] [place] [address] Potassium [Moles/Vol] 4.0 mmol/L Normal 3.5-5.1 [facility] Comment on above: Performed By: #### D DIMER #### [facility] [address] [place] [address] Sodium [Moles/Vol] 137 mmol/L Normal 136-145 [facility] Comment on above: Performed By: #### D DIMER #### [place] [address] [place] [address] Urea nitrogen [Mass/Vol] 20 mg/dL High 7-18 [facility] Comment on above: Performed By: #### D DIMER #### [place] [address] [place] [address] [id number] 07-06-2023 CXR2V [facility] [address] [place] [address] XRay Report Signed Patient Name: Esteban Grossman Date of : 1985 Account #:[id number] Age/Sex: 38 / M Location: ED Attending physician: Ordering Provider: Ester Hernandez CNP Date of Service: 07/05/23 Procedure(s): XR chest 2V HISTORY: Cough. Shortness of breath Study: PA and lateral chest dated 07/05/2023. 12:11 p.m. Findings: Dense consolidation is present in the left lower lobe consistent with pneumonia. The heart size is normal. The rest of the lungs are clear. IMPRESSION: Left lower lobe pneumonia. Dictated By: Lev Palafox MD Signed By: 07/06/23 1016 DD/ 1013 TD/TT: 07/06/23 1013 Ad Operations Intern: NATO Exam/Order Verified? Y Exam Explained to Patient/Family? Y Was Patient Shielded? Y Is Patient ? Consent Form Completed? Hx Last Menstrual Period: Does Patient have a Diabetic Device? No Diabetic Device Type: Was the Diabetic Device Removed? If NO: was Removal Consent form completed? Patient was informed of radiation exposure prior to scan? Y Verified by Technologist:[id number] Comment: [phone] cc: Ester Hernandez, REHABILITATION TEAM LEAD PCP,No Normal [facility] Complete Blood Count with Di ffon 07-06-2023 Basophils Absolute Auto 0.0 10'3/uL Normal 0.0-0. [facility] Comment on above: Performed By: #### D DIMER #### [facility] [address] [place] [address] Basophils/100 WBC (Bld) 0 % Normal 0-1 [facility] Comment on above: Performed By: #### D DIMER #### [place] [address] [place] [address] Eosinophils Absolute Auto 0.0 10'3/uL Normal 0.0-0.4 [facility] Comment on above: Performed By: #### D DIMER #### [facility] [address] [place] [address] Eosinophils/100 WBC (Bld) 0 % Low 2-5 [facility] Comment on above: Performed By: #### D DIMER #### [facility] [address] [place] [address] Erythrocyte distribution width (RBC) [Ratio] 13.0 % Normal 11.7-15.5 [facility] Comment on above: Performed By: #### D DIMER #### [place] [address] [place] [address] Hematocrit (Bld) [Volume fraction] 35.1 % Low 39.8-49.4 [facility] Comment on above: Performed By: #### D DIMER #### [facility] [address] [place] [address] Hemoglobin (Bld) [Mass/Vol] 12.1 g/dL Low 13.5-16.8 [facility] Comment on above: Performed By: #### D DIMER #### [place] [address] [place] [address] Lymphocytes Absolute Auto 1.1 10'3/uL Normal 0.4-3.6 [facility] Comment on above: Performed By: #### D DIMER #### [place] [address] [facility] [place] [address] Lymphocytes/100 WBC (Bld) 10 % Low 20-35 [facility] Comment on above: Performed By: #### D DIMER #### [place] [address] [place] [address] MCH (RBC) [Entitic mass] 28.6 pg Normal 27.9-33.7 [facility] Comment on above: Performed By: #### D DIMER #### [place] [address] [facility] [place] [address] MCV (RBC) [Entitic vol] 83.0 fL Normal 83.0-97.4 [facility] Comment on above: Performed By: #### D DIMER #### [place] [address] [place] [address] Mean Corpuscular HGB Conc 34.5 g/dL Normal 33.0-35.2 [facility] Comment on above: Performed By: #### D DIMER #### [place] [address] [place] [address] Monocytes Absolute Auto 0.9 10'3/uL Normal 0.3-1.0 [facility] Comment on above: Performed By: #### D DIMER #### [place] [address] [place] [address] Monocytes/100 WBC (Bld) 8 % Normal 4-12 [facility] Comment on above: Performed By: #### D DIMER #### [facility] [address] [place] [address] Neutrophil # 9.3 10'3/uL High 2.2-6.3 [facility] Comment on above: Performed By: #### D DIMER #### [place] [address] [place] [address] Neutrophils/100 WBC (Bld) 83 % High 44-75 [facility] Comment on above: Performed By: #### D DIMER #### [place] [address] [place] [address] Platelet Count 186 10'3/uL Normal 144-327 [facility] Comment on above: Performed By: #### D DIMER #### [place] [address] [place] [address] Platelet mean volume (Bld) [Entitic vol] 9.6 fL Normal 7.2-10.4 [facility] Comment on above: Performed By: #### D DIMER #### [place] [address] [place] [address] Red Blood Count 4.23 10'6/uL Low 4.24-5.64 [facility] Comment on above: Performed By: #### D DIMER #### [place] [address] [place] [address] White Blood Count 11.3 10'3/uL High 4.1-10.2 [facility] Comment on above: Performed By: #### D DIMER #### [place] [address] [place] [address] P.DSon 07-06-2023 P.DS [facility] [address] [place] [address] Discharge Summary Signed Patient Name: Esteban Grossman [id number] Date of : 1985 Age/Sex: 38 / M Location: [facility] Attending physician: Aaron Olivera MD DS: Diagnosis Discharge Diagnosis (1) Pneumonia: Status: Acute Physical Exam Narrative Vital signs, click to edit/add: Vital Signs - 24 hr 07/05/23 17:55 07/05/23 21:48 07/05/23 21:49 Temperature 101.9 F H 98.9 F 98.9 F Pulse Rate Pulse Rate [Right Brachial] 111 H Respiratory Rate 20 Blood Pressure [Right Arm] 111/60 Pulse Oximetry 92 L Oxygen Delivery Method Room Air 07/05/23 22:59 07/05/23 22:59 07/05/23 22:54 Temperature 97.3 F L 97.3 F L 97.3 F L Pulse Rate Pulse Rate [Right Brachial] 89 Respiratory Rate 18 Blood Pressure [Right Arm] 130/65 Pulse Oximetry 95 Oxygen Delivery Method Room Air 07/05/23 23:42 07/05/23 23:48 07/06/23 03:46 Temperature Pulse Rate 72 76 Pulse Rate [Right Brachial] Respiratory Rate Blood Pressure [Right Arm] Pulse Oximetry 96 Oxygen Delivery Method Room Air 07/06/23 03:50 07/06/23 05:37 07/06/23 07:56 Temperature 97.6 F Pulse Rate 75 Pulse Rate [Right Brachial] 79 Respiratory Rate 17 Blood Pressure [Right Arm] 92/41 L Pulse Oximetry 95 97 Oxygen Delivery Method Room Air Room Air 07/06/23 08:00 07/06/23 08:00 07/06/23 11:24 Temperature 98.4 F Pulse Rate 74 Pulse Rate [Right Brachial] 92 Respiratory Rate 16 Blood Pressure [Right Arm] 141/88 H Pulse Oximetry 98 98 Oxygen Delivery Method Room Air Nasal Cannula 07/06/23 11:27 Temperature Pulse Rate Pulse Rate [Right Brachial] Respiratory Rate Blood Pressure [Right Arm] Pulse Oximetry 96 Oxygen Delivery Method Room Air Constitutional Common normals: no acute distress and alert General appearance: cooperative HENT Common normals: normocephalic, atraumatic and moist oral mucous membranes Head and scalp: normal to inspection, normocephalic and atraumatic Eye Common normals: conjunctivae normal Conjunctiva: conjunctivae normal Neck C-Spine Common normals: supple Chest Chest: Symmetrical chest wall rise Respiratory Common normals: normal respiratory effort, clear to auscultation bilaterally and Good bilateral breath sounds Effort inspection: able to speak in complete sentences Auscultation: clear to auscultation bilaterally Cardio Common normals: regular rate, regular rhythm, S1 normal heart sound present and S2 normal heart sound present Rate: regular rate Rhythm: regular rhythm Heart sounds: S1 normal heart sound present and S2 normal heart sound present GI Common normals: Normal to inspection, nondistended, normoactive bowel sounds present Common normals: Deferred Neuro Common normals: alert Sensorium/orientati on: Yes alert Skin Common normals: warm and normal color Discharge Data Data Completed and Pending Labs on day of discharge: Labs from last 24 hours 07/06/23 05:33 WBC 11.3 H RBC 4.23 L Hgb 12.1 L Hct 35.1 L MCV 83.0 MCH 28.6 MCHC 34.5 RDW 13.0 Plt Count 186 MPV 9.6 Neut % (Auto) 83 H Lymph % (Auto) 10 L [place] % (Auto) 8 Eos % (Auto) 0 L Baso % (Auto) 0 Lymph # (Auto) 1.1 [place] # (Auto) 0.9 Eos # (Auto) 0.0 Baso # (Auto) 0.0 Absolute Neutrophils 9.3 H Sodium 137 Potassium 4.0 Chloride 102 Carbon Dioxide 22 Anion Gap 13 BUN 20 H Creatinine 1.27 H GFR Calculation >60 Random Glucose 120 H Calcium 9.1 Discharge Plan Admission Infomation Date of Admission: 07/05/23 22:41 Primary Care Provider: PCP,No Attending Provider: Aaron Olivera Discharge (Provider) Patient Disposition: Home, Self-Care Discharge Orders: Discharge/Release Order (Routine); Ordered 07/06/23 Ordered By: Marija Pitts Condition: Stable Assessment (Hospital Narrative): Patient was admitted to the hospital under OBS for the treatment of PNA after returning back to the ER for the c/o blood streaked sputum. CTA was pending at admission. CTA was negative for PE. Patient remained on room air during his stay. He denies any CP / SOB no fever. He has an occasional dry cough. He has already picked up his antiboitcs from the pharmacy and will start those tomorrow. He recieved IV antibotics today prior to dc. Patient is eager to go home, at bedside. Patient will be dc home with his with o/p f/u in 1-2 weeks with his PCP. Discharge Medications: Continued azithromycin [Zithromax] 250 mg tablet See Rx Instructions .ROUTE .COMPLEX Qty: 6 0RF Rx Instructions: For 250 mg dose pack: take 500 mg today (day 1), then (more content not included)... Normal [facility] P.HPon 07-06-2023 P.HP [place] [id number] [place] [address] History Physical Report Signed Patient Name: Esteban Grossman [id number] Date of : 1985 Age/Sex: 38 / M Location: [facility] Attending physician: Aaron Olivera MD HPI: Adult History of Present Illness Date of admission: 07/05/23 Date of exam: 07/06/23 Chief complaint: Community Acquired Pneumonia (CAP) HPI Narrative: Esteban Grossman is a 38 year old M with no medical past history. Present to the ER with the c/o blood streaked sputum. He presented in the ER earlier in the day and was dc home with CAP on oral antibotics. He had a CTA done in the ER, results pending patient was admitted under OBS. Patient seen today sitting at the bedside asking to go home, at bedside. He denies any SOB,CP no fevers or chills. He has a nonproductive dry cough. Home Meds and Allergies Home Medications Medication Instructions Recorded Confirmed Type azithromycin 250 mg tablet See Rx Instructions PO .COMPLEX #6 07/05/23 07/05/23 Rx (Zithromax) tabs cephalexin 500 mg capsule 500 mg PO TID #30 caps 07/05/23 07/05/23 Rx Allergies Allergy/AdvReac Type Severity Reaction Status Date / Time No Known Drug Allergies Allergy Verified 07/05/23 22:54 Review of Systems Status of ROS Reports: 10 or more systems reviewed and unremarkable except as noted in History and below History PFSH Medical History (Updated 07/05/23 @ 20:22 by Ester Hernandez CNP) No significant past medical history Surgical History (Updated 07/05/23 @ 23:44 by Radha Momin) Hx of appendectomy Hx of tonsillectomy Social History History Provided by: Medical Record and Patient Preferred Language: Turkish Language Assistance Offered: Not Applicable Usual Living Arrangement: With Spouse/Significant Other Smoking Status: Never Smoker Other Form of Tobacco Used: Never Used Second Hand Tobacco Smoke Exposure: No [facility] Smoking Cessation Instructions Provided to Patient: No How Often do you Have a Drink Containing Alcohol: 2-3 Times a Week How Many Standard Drinks Containing Alcohol do you Have on a Typical Day: 1 or 2 How Often do you Have Six or More Drinks on One Occasion: Never AUDIT-C Alcohol Total Score: 3 Caffeine Use: Yes Non-Prescribed Substance Use: Denies Use Recent Life Stress: No Recent Loss: No Auditory/Visual Hallucinations: No Homicical Thoughts/Plans: No Suicidal Thoughts/Plans: No Hx Psychiatric Treatment: No Primary Care Provider Notified: Not Applicable History of Physical Abuse: No History of Emotional Abuse: No History of Sexual Abuse: No Suspect/Identified Abuse: No Provider Notified of Abuse or Suspected Abuse: No Travel Outside of the Area Within the Last 8 Weeks: No Employment Status: Clinic Licensed Practical Nurse Current Occupational Exposures/Hazards: No or Spouse of a Living Rea: No Highest Level of School Completed/Degree Received: High School Cultural/Personal/R eligious Beliefs that Affect Patient Care: No Cultural or Amish Modesty Issues Regarding Care by Staff of the Opposite Sex: No Amish Items Worn: No Other Factors Affecting Patient Care Experience: No Services Used Prior to Admission: No Prior Services Patient Discharge Plan Description: Return Home Services Needed at Discharge: No Services Needed Arrangement for Transportation Home Needed: No Discharge Planning/Case Management Referral Needed: No Concerns Regarding Hospital Charges: No Physical Exam Narrative Vital signs, click to edit/add: Vital Signs - 24 hr 07/05/23 17:55 07/05/23 21:48 07/05/23 21:49 Temperature 101.9 F H 98.9 F 98.9 F Pulse Rate Pulse Rate [Right Brachial] 111 H Respiratory Rate 20 Blood Pressure [Right Arm] 111/60 Pulse Oximetry 92 L Oxygen Delivery Method Room Air 07/05/23 22:59 07/05/23 22:59 07/05/23 22:54 Temperature 97.3 F L 97.3 F L 97.3 F L Pulse Rate Pulse Rate [Right Brachial] 89 Respiratory Rate 18 Blood Pressure [Right Arm] 130/65 Pulse Oximetry 95 Oxygen Delivery Method Room Air 07/05/23 23:42 07/05/23 23:48 07/06/23 03:46 Temperature Pulse Rate 72 76 Pulse Rate [Right Brachial] Respiratory Rate Blood Pressure [Right Arm] Pulse Oximetry 96 Oxygen Delivery Method Room Air 07/06/23 03:50 07/06/23 05:37 07/06/23 07:56 Temperature 97.6 F Pulse Rate 75 Pulse Rate [Right Brachial] 79 Respiratory Rate 17 Blood Pressure [Right Arm] 92/41 L Pulse Oximetry 95 97 Oxygen Delivery Method Room Air Room Air 07/06/23 08:00 07/06/23 08:00 07/06/23 11:24 Temperature 98.4 F Pulse Rate 74 Pulse Rate [Right Brachial] 92 Respiratory Rate 16 Blood Pressure [Right Arm] (more content not included)... Normal [facility] BNPon 07-05-2023 Natriuretic peptide B (Bld) [Mass/Vol] 28 pg/mL Normal 5-100 [facility] Comment on above: Result Comment: BNP Interpretation <=100 pg/mL [employer] of normal values in patients without CHF >100 pg/mL Considered abnormal and suggestive of patients with CHF Performed By: #### B WAREHOUSE MAN #### [place] [address] [place] [address] Basic Metabolic Panelon 06-14 Anion gap [Moles/Vol] 13 mmol/L Normal 5-13 [facility] Comment on above: Performed By: #### T NI, BM #### [place] [address] [place] [address] Calcium [Mass/Vol] 9.3 mg/dL Normal 8.4-10.2 [facility] Comment on above: Performed By: #### T NI, BM #### [facility] [address] [place] [address] Chloride [Moles/Vol] 101 mmol/L Normal 98-107 [facility] Comment on above: Performed By: #### T NI, BM #### [facility] [address] [place] [address] CO2 [Moles/Vol] 19 mmol/L Low 22-29 [facility] Comment on above: Performed By: #### T NI, BM #### [facility] [address] [place] [address] Creatinine [Mass/Vol] 1.30 mg/dL High 0.72-1.25 [facility] Comment on above: Performed By: #### T NI, BM #### [facility] [address] [place] [address] Glomerular Filtration Rate >60 Normal mL/min/1.73m2 [facility] Comment on above: Performed By: #### T NI, BM #### [facility] [address] [place] [address] Glucose [Mass/Vol] 128 mg/dL High 70-100 [facility] Comment on above: Performed By: #### T NI, BM #### [place] [address] [place] [address] Potassium [Moles/Vol] 4.0 mmol/L Normal 3.5-5.1 [facility] Comment on above: Performed By: #### T NI, BM #### [place] [address] [place] [address] Sodium [Moles/Vol] 133 mmol/L Low 136-145 [facility] Comment on above: Performed By: #### T NI, BM #### [place] [address] [place] [address] Urea nitrogen [Mass/Vol] 17 mg/dL Normal 7-18 [facility] Comment on above: Performed By: #### T NI, BM #### [place] [address] [place] [address] Basophils Auto (Bld) [#/Vol] Ordered By: Ester Hernandez on 07-05-2023 Basophils (Bld) [#/Vol] 0.0 10'3/uL 0.0-0.2 [facility] Basophils/100 WBC Auto (Bld) Ordered By: Ester Hernandez on 07-05-2023 Basophils/100 WBC (Bld) 0 % 0-1 [facility] Blood erythrocytes count (nu mber/volume)Ordered By: Ester Hernandez on 07-05-2023 RBC (Bld) [#/Vol] 4.40 10'6/uL 4.24-5.64 [facility] Complete Blood Count with Di ffon 07-05-2023 MCH (RBC) [Entitic mass] 29.0 pg Normal 27.9-33.7 [facility] Comment on above: Performed By: #### C BCD #### [facility] [address] [place] [address] Basophils Absolute Auto 0.0 10'3/uL Normal 0.0-0. [facility] Comment on above: Performed By: #### C BCD #### [facility] [address] [place] [address] Basophils/100 WBC (Bld) 0 % Normal 0-1 [facility] Comment on above: Performed By: #### C BCD #### [place] [address] [place] [address] Eosinophils Absolute Auto 0.0 10'3/uL Normal 0.0-0.4 [facility] Comment on above: Performed By: #### C BCD #### [facility] [address] [place] [address] Eosinophils/100 WBC (Bld) 0 % Low 2-5 [facility] Comment on above: Performed By: #### C BCD #### [place] [id number] [place] [address] Erythrocyte distribution width (RBC) [Ratio] 12.7 % Normal 11.7-15.5 [facility] Comment on above: Performed By: #### C BCD #### [facility] [address] [place] [address] Hematocrit (Bld) [Volume fraction] 35.9 % Low 39.8-49.4 [facility] Comment on above: Performed By: #### C BCD #### [facility] [address] [place] [address] Hemoglobin (Bld) [Mass/Vol] 12.8 g/dL Low 13.5-16.8 [facility] Comment on above: Performed By: #### C BCD #### [place] [address] [place] [address] Lymphocytes Absolute Auto 0.9 10'3/uL Normal 0.4-3.6 [facility] Comment on above: Performed By: #### C BCD #### [place] [address] [place] [address] Lymphocytes/100 WBC (Bld) 5 % Low 20-35 [facility] Comment on above: Performed By: #### C BCD #### [place] [address] [place] [address] MCV (RBC) [Entitic vol] 81.6 fL Low 83.0-97.4 [facility] Comment on above: Performed By: #### C BCD #### [place] [address] [place] [address] Mean Corpuscular HGB Conc 35.7 g/dL High 33.0-35.2 [facility] Comment on above: Performed By: #### C BCD #### [place] [address] [place] [address] Monocytes Absolute Auto 1.1 10'3/uL High 0.3-1.0 [facility] Comment on above: Performed By: #### C BCD #### [place] [address] [place] [address] Monocytes/100 WBC (Bld) 7 % Normal 4-12 [facility] Comment on above: Performed By: #### C BCD #### [place] [address] [place] [address] Neutrophil # 14.3 10'3/uL High 2.2-6.3 [facility] Comment on above: Performed By: #### C BCD #### [place] [address] [place] [address] Neutrophils/100 WBC (Bld) 88 % High 44-75 [facility] Comment on above: Performed By: #### C BCD #### [place] [address] [place] [address] Platelet Count 215 10'3/uL Normal 144-327 [facility] Comment on above: Performed By: #### C BCD #### [place] [address] [place] [address] Platelet mean volume (Bld) [Entitic vol] 9.4 fL Normal 7.2-10.4 [facility] Comment on above: Performed By: #### C BCD #### [place] [address] [place] [address] Red Blood Count 4.40 10'6/uL Normal 4.24-5.64 [facility] Comment on above: Performed By: #### C BCD #### [address] [place] [address] White Blood Count 16.3 10'3/uL High 4.1-10.2 [facility] Comment on above: Performed By: #### C BCD #### [place] [address] [place] [address] D Dimeron 07-05-2023 D Dimer 0.26 mg/L FEU Normal <0.50 [facility] Comment on above: Result Comment: Resu lts of the D-Dimer test should always be interpreted in conjunction with the patient's medical history, clinical presentation and other findings. Clinical diagnosis should not be based on the result of [employer] D-Dimer alone. Performed By: #### D DIMER #### [address] [place] [address] Determination of erythrocyte mean corpuscular volume (MCV)Ordered By: Ester Hernandez on 07-05-2023 MCV (RBC) [Entitic vol] 81.6 fL Low 83.0-97.4 [facility] EDon 07-05-2023 ED [place] [address] [place] [address] Emergency Department Note Signed Patient Name: Esteban Grossman Medical Rec ord #: [id number] Date of : 1985 Account #: [id number] Age/Sex: 38 / M Location: [address] [place] [address] Attending physician: Aaron Olivera MD WAREHOUSE MAN/PA Attestation MDM Narrative Date of Visit: 07/05/23 Chief Complaint: Upper Respiratory Infection/ Sore Throat Medical decision making narrative: I performed a history and physical examination of the patient and discussed management with the WAREHOUSE MAN/PA. I reviewed the WAREHOUSE MAN/PA's note and agree with the documented findings and plan of care. Any areas of disagreement are noted on the chart. I was personally present for the lopez portions of any procedures. I have documented in the chart those procedures where I was not present during the lopez portions. I have reviewed the emergency nurses triage note. I agree with the chief complaint, past medical history, past surgical history, allergies, medications, social and family history as documented unless otherwise noted below. Documentation of the HPI, Physical Exam and Medical Decision Making performed by the WAREHOUSE MAN/PA is based on my personal performance of the HPI, PE and MDM. For WAREHOUSE MAN/PA cases/ documentation I have personally evaluated this patient and have completed at least one if not all lopez elements of the E/M (history, physical exam, and MDM). Additional findings are as noted:: The patient presents with hemoptysis. We saw him earlier today and he was having fever. He had an infiltrate on his left lower lobe on CXR. He was started on antibiotics. The patient says he has coughed up blood this afternoon and came back to be evaluated. The patient denies chest pain. On exam, the patient appears be in no distress. He is not having active hemoptysis. He has no respiratory difficulties and only scattered rhonchi. He is not hypoxic. The patient's CT scan demonstrated pneumonia but no PE. The patient continued to have hemoptysis and was concerned about going home. We have discussed the case with the hospitalist who will admit. The patient is admitted in stable condition. Discharge Plan Discharge (Provider) Patient Disposition: Admit: Med Surg Clinical Impression: Pneumonia Condition: Stable ` Dictated By: Yoselin Metcalf MD 07/05/231809 Signed By: 07/06/23 3859 Cosigned By (if applicable): [id number] cc: Normal [facility] ED [place] [id number] [facility] [place] [address] Emergency Department Note Signed Patient Name: Esteban Grossman Medical Rec ord #: [id number] Date of : 1985 Account #: [id number] Age/Sex: 38 / M Location: ED Attending physician: HPI - General Adult General Date of Visit: 07/05/23 Chief complaint: Upper Respiratory Infection/ Sore Throat Time Seen by Provider: 07/05/23 18:02 History of Present Illness HPI narrative: The patient is a 38 year old M who presented to the Emergency Department with the complaint of coughing up blood. Patient was seen here earlier this morning and diagnosed with pneumonia. He was given IV doses of antibiotics and discharged home as his vital signs stabilized and he was feeling better. Patient reports after going home he started having chills and felt very shaky. He states he began coughing a lot and coughed up some blood. He denies any further instances of coughing up blood. He denies any shortness of breath gasping or choking. He denies any chest pain or difficulty breathing. He denies any abdominal pain nausea vomiting or diarrhea. Mode of Arrival: Ambulatory Home Meds and Allergies Previous Rx's Medication Instructions Recorded azithromycin 250 mg tablet See Rx Instructions PO .COMPLEX #6 07/05/23 (Zithromax) tabs cephalexin 500 mg capsule 500 mg PO TID #30 caps 07/05/23 Allergies Allergy/AdvReac Type Severity Reaction Status Date / Time No Known Drug Allergies Allergy Verified 07/05/23 18:02 Review of Systems Status of ROS: Reports: 10 or more systems reviewed and unremarkable except as noted in History and below Constitutional: Reports: fever(s), chills and fatigue Cardiovascular: Reports: dyspnea; Denies: chest pain or lightheadedness Respiratory: Reports: dyspnea, cough, hemoptysis and chest congestion Gastrointestinal: Denies: abdominal pain, nausea or vomiting Endocrine: Reports: fatigue [facility] History No significant past medical history Surgical History No significant past surgical history Social History History Provided by: Patient Preferred Language: Turkish Language Assistance Offered: Not Applicable Usual Living Arrangement: With Spouse/Significant Other Smoking Status: Never Smoker Other Form of Tobacco Used: Never Used Second Hand Tobacco Smoke Exposure: No How Often do you Have a Drink Containing Alcohol: Never How Many Standard Drinks Containing Alcohol do you Have on a Typical Day: None How Often do you Have Six or More Drinks on One Occasion: Never AUDIT-C Alcohol Total Score: 0 Non-Prescribed Substance Use: Denies Use Suspect/Identified Abuse: No Physical Exam Narrative: Vital signs, click to edit/add: Vital Signs - 24 hr 07/05/23 17:55 07/05/23 21:48 07/05/23 21:49 Temperature 101.9 F H 98.9 F 98.9 F Pulse Rate [Right Brachial] 111 H Respiratory Rate 20 Blood Pressure [Ri ght Arm] 111/60 Pulse Oximetry 92 L Oxygen Delivery Me thod Room Air Constitutional: Common normals: no acute distress and alert General appearance: cooperative HENT: Common normals: normocephalic, atraumatic and moist oral mucous membranes Head and scalp: normal to inspection, normocephalic and atraumatic Eye: Common normals: conjunctivae normal Conjunctiva: conjunctivae normal Neck C-Spine: Common normals: supple Chest: Chest: Symmetrical chest wall rise Respiratory: Common normals: normal respiratory effort, clear to auscultation bilaterally and Good bilateral breath sounds Effort inspection: able to speak in complete sentences Auscultation: clear to auscultation bilaterally Cardio: Common normals: regular rate, regular rhythm, S1 normal heart sound present and S2 normal heart sound present Rate: regular rate Rhythm: regular rhythm Heart sounds: S1 normal heart sound present and S2 normal heart sound present GI: Common normals: Normal to inspection, nondistended, normoactive bowel sounds present : Common normals: Deferred Neuro: Common normals: alert Sensorium/orientati on: Yes alert Skin: Common normals: warm and normal color Medical Decision Making MDM Narrative Medical decision making narrative: This is a 38-year-old male who presents emergency department for the second time today for evaluation of hemoptysis. Patient was previously diagnosed from his previous visit with left lower lobe pneumonia. Patient was treated with IV dose of antibiotics and discharged home in stable condition. Patient went home and began having episodes of hemoptysis without shortness of breath difficulty breathing. Patient is from [facility]. Patient had CT scan performed--CTA chest with contrast (more content not included)... Normal [facility] ED [facility] [address] [place] [address] Emergency Department Note Signed Patient Name: Esteban Grossman Medical Rec ord #: [id number] Date of : 1985 Account #: [id number] Age/Sex: 38 / M Location: ED Attending physician: HPI - General Adult General Date of Visit: 07/05/23 Chief complaint: Shortness of Breath/Dyspnea Time Seen by Provider: 07/05/23 11:36 History of Present Illness HPI narrative: The patient is a 38 year old M who presented to the Emergency Department with the complaint of Shortness of Breath/Dyspnea. Patient states he began having some chest congestion about 3 weeks ago. He states the symptoms seem to wax and wane. He states over the next several weeks he has noticed that he has become more short of breath with activity. He does report some having some chest discomfort across the lower anterior portion of his chest. He states the chest discomfort is worse with activity. He complains of dyspnea on exertion. He states all of the symptoms are new for him. He denies any radiation of the pain in his chest into his arm up to his jaw or into his neck or back. He denies any associated diaphoresis, nausea, vomiting lightheadedness or dizziness. He denies any heart issues in the past. He denies any history of DVT or PE. He states over the past couple of days he has noticed he has felt very fatigued, chest congestion and reports he vomited once yesterday. He states he decided to come in today because of the continued symptoms of fatigue and shortness of breath. He denies any sore throat, ear pain or nasal congestion. He denies any abdominal pain or diarrhea. Mode of Arrival: Ambulatory Home Meds and Allergies Previous Rx's Medication Instructions Recorded azithromycin 250 mg tablet See Rx Instructions PO .COMPLEX #6 07/05/23 (Zithromax) tabs cephalexin 500 mg capsule 500 mg PO TID #30 caps 07/05/23 Allergies Allergy/AdvReac Type Severity Reaction Status Date / Time No Known Drug Allergies Allergy Verified 07/05/23 11:48 Review of Systems Status of ROS: Reports: 10 or more systems reviewed and unremarkable except as noted in History and below Constitutional: Reports: fever(s), fatigue and malaise Ears, Nose, Mouth, Throat: Denies: throat pain, neck pain, throat swelling, dysphagia, hoarseness, swelling of lips/tongue, nasal discharge or nasal congestion Cardiovascular: Reports: chest pain and dyspnea; Denies: palpitations, edema, swelling of feet/ankles or lightheadedness Respiratory: Reports: dyspnea, cough and chest congestion; Denies: wheezing, stridor or hemoptysis Gastrointestinal: Reports: nausea and vomiting (X1); Denies: abdominal pain or dysphagia Musculoskeletal: Denies: neck pain Endocrine: Reports: fatigue Allergic/Immunologi c: Denies: throat swelling or wheezing History PFS Social History History Provided by: Patient Preferred Language: Turkish Language Assistance Offered: Not Applicable Usual Living Arrangement: With Spouse/Significant Other Smoking Status: Never Smoker Other Form of Tobacco Used: Never Used How Often do you Have a Drink Containing Alcohol: Never How Many Standard Drinks Containing Alcohol do you Have on a Typical Day: None How Often do you Have Six or More Drinks on One Occasion: Never AUDIT-C Alcohol Total Score: 0 Non-Prescribed Substance Use: Denies Use Suspect/Identified Abuse: No Physical Exam Narrative: Vital signs, click to edit/add: Vital Signs - 24 hr 07/05/23 11:44 07/05/23 11:55 07/05/23 11:55 Temperature 102.5 F H 102.5 F H 102.5 F H Pulse Rate [Left R adial] 120 H Respiratory Rate 20 Blood Pressure [Le ft Arm] 128/94 Pulse Oximetry 97 Oxygen Delivery Me thod Room Air Constitutional: Common normals: no acute distress and alert General appearance: cooperative HENT: Common normals: normocephalic, atraumatic and moist oral mucous membranes Head and scalp: normal to inspection, normocephalic and atraumatic Eye: Common normals: Equal, round and reactive pupils present, EOMs intact bilaterally and conjunctivae normal Conjunctiva: conjunctivae normal Pupil: Equal, round and reactive pupils present Neck C-Spine: Common normals: supple Chest: Chest: Symmetrical chest wall rise Respiratory: Common normals: normal respiratory effort, clear to auscultation bilaterally and Good bilateral breath sounds Effort inspection: able to speak in complete sentences Auscultation: clear to auscultation bilaterally and other (scattered rhonchi in bases bilat cleared with cough) Cardio: Common normals: regular rate, regular rhythm, S1 normal heart sound present and S2 normal heart sound present Rate: regular rate Rhythm: regular rhythm Heart sounds: S1 normal heart sound present and S2 normal heart heike (more content not included)... Normal [facility] ED [facility] [id number] Emergency Department Note Signed Patient Name: Esteban Grossman Medical Rec ord #: [id number] Date of : 1985 Account #: [id number] Age/Sex: 38 / M Location: ED Attending physician: WAREHOUSE MAN/PA Attestation MDM Narrative Date of Visit: 07/05/23 Chief Complaint: Shortness of Breath/Dyspnea Medical decision making narrative: I performed a history and physical examination of the patient and discussed management with the WAREHOUSE MAN/PA. I reviewed the WAREHOUSE MAN/PA's note and agree with the documented findings and plan of care. Any areas of disagreement are noted on the chart. I was personally present for the lopez portions of any procedures. I have documented in the chart those procedures where I was not present during the lopez portions. I have reviewed the emergency nurses triage note. I agree with the chief complaint, past medical history, past surgical history, allergies, medications, social and family history as documented unless otherwise noted below. Documentation of the HPI, Physical Exam and Medical Decision Making performed by the WAREHOUSE MAN/PA is based on my personal performance of the HPI, PE and MDM. For WAREHOUSE MAN/PA cases/ documentation I have personally evaluated this patient and have completed at least one if not all lopez elements of the E/M (history, physical exam, and MDM). Additional findings are as noted:: The patient presents to the emergency department with dyspnea. He says his dyspnea is been worse over the past 3 weeks. He does not have a history of COPD. He also reports some chest discomfort. It is worse when he takes a deep breath. He does not normally use breathing treatments. On exam, the patient has clear nasal rhinorrhea. He has normal heart and lung sounds. He has no wheezing. He has no accessory muscle use. He has no pain to palpation of the abdomen. The patient has a lobar pneumonia. His D-dimer is normal and his cardiac workup is reassuring. The patient was negative for flu and Covid. He will be placed on oral antibiotics. The patient is discharged in good condition. Lab Data Abnormal Labs: Abnormal Labs 07/05/23 11:57 WBC 16.3 H Hgb 12.8 L Hct 35.9 L MCV 81.6 L MCHC 35.7 H Neut % (Auto) 88 H Lymph % (Auto) 5 L Eos % (Auto) 0 L [place] # (Auto) 1.1 H Absolute Neutrophils 14.3 H Sodium 133 L Carbon Dioxide 19 L Creatinine 1.30 H Random Glucose 128 H Troponin I < 0.010 L Labs: Lab Results 07/05/23 07/05/23 Range/Units 11:57 11:59 WBC 16.3 H (4.1-10.2) 10'3/uL RBC 4.40 (4.24-5.64) 10'6/uL Hgb 12.8 L (13.5-16.8) g/dL Hct 35.9 L (39.8-49.4) % MCV 81.6 L (83.0-97.4) fL MCH 29.0 (27.9-33.7) pg MCHC 35.7 H (33.0-35.2) g/dL RDW 12.7 (11.7-15.5) % Plt Count 215 (144-327) 10'3/uL MPV 9.4 (7.2-10.4) fL Neut % (Auto) 88 H (44-75) % Lymph % (Auto) 5 L (20-35) % [place] % (Auto) 7 (4-12) % Eos % (Auto) 0 L (2-5) % Baso % (Auto) 0 (0-1) % Lymph # (Auto) 0.9 (0.4-3.6) 10'3/uL [place] # (Auto) 1.1 H (0.3-1.0) 10'3/uL Eos # (Auto) 0.0 (0.0-0.4) 10'3/uL Baso # (Auto) 0.0 (0.0-0.) 10'3/uL Absolute Neutrophils 14.3 H (2.2-6.3) 10'3/uL D-Dimer Quant (PE/DVT) 0.26 (<0.50) mg/L FEU Sodium 133 L (136-145) mmol/L Potassium 4.0 (3.5-5.1) mmol/L Chloride 101 (98-107) mmol/L Carbon Dioxide 19 L (22-29) mmol/L Anion Gap 13 (5-13) mEq/L BUN 17 (7-18) mg/dL Creatinine 1.30 H (0.72-1.25) mg/dL GFR Calculation >60 (mL/min/1.73m2) Random Glucose 128 H (70-100) mg/dL Calcium 9.3 (8.4-10.2) mg/dL Troponin I < 0.010 L (0.010-0.045) ng/mL B-Natriuretic Peptide 28 (5-100) pg/mL SARS-CoV-2 PCR Result Presumptive negative (Negative) 07/05/23 11:59 Influenza Types A B (OMAYRA) - Final Nasopharynx Imaging Data My impression: Reviewed chest x-ray: Emergency physician independent interpretation: Left lower lobe lobar pneumonia EKG Data Interpretation: Physician independent interpretation: Sinus tach [address] change. Questionably biphasic T waves in the anterior lateral leads. No old to compare. [place] 77, [place] 165, QRS 87, QT 304. Discharge Plan Discharge (Provider) Patient Disposition: Home, Self-Care Clinical Impression: Pneumonia Condition: Stable Additional Instructions: Take antibiotic as directed until gone. Be sure to finish full course Take Tylenol or Motrin as directed as needed for discomfort or fever Drink plenty of fluids to maintain hydration Please follow-up with your family doctor on Friday or Friday for reevaluation of symptoms If your symptoms worsen or any new or concerning symptoms arise please return to the emergency department immediately Referrals: [facility] [Provider Group] - 1-2 Days PCP,No [Primary Care Provider] - Home Meds Prescriptio (more content not included)... Normal [facility] Eosinophils/100 WBC Auto (Bl d)Ordered By: Ester Hernandez on 07-05-2023 Eosinophils/100 WBC (Bld) 0 % Low 2-5 [facility] Histamine release from basop hils measurementOrdered By: Ester Hernandez on 07-05-2023 Chloride [Moles/Vol] 101 mmol/L 98-107 [facility] Creatinine [Mass/Vol] 1.30 mg/dL High 0.72-1.25 [facility] Hemoglobin (Bld) [Mass/Vol] 12.8 g/dL Low 13.5-16.8 [facility] Histamine release from basophils measurement 0.0 10'3/uL 0.0-0.4 [facility] Histamine release from basophils measurement >60 mL/min/1.73m2 [facility] ID Now CoVID-19on 07-05-2023 SARS-CoV-2 (COVID-19) RNA OMAYRA+probe Ql (Unsp spec) Negative Normal Negative [facility] Comment on above: Order Comment: First Test? No Date of Symptom Onset? 07/03/23 Healthcare Worker? No Hospitalized? No Patient in ICU? No ? [facility] Symptomatic as Defined by CDC? Yes Result Comment: ID N ow CoVID-19 is an automated assay that utilizes isothermal nucleic acid amplification (PCR-Type) technology for the qualitative detection of ABDIAZIZ-CoV-2 VIRAL nucleic acids. This is not an antigen test. COVID-19 RESULT INTERPRETATION: CoVID-19 Positive - Positive results do not rule out bacterial infection or co-infection with other viruses. CoVID-19 Negative - Negative results should be treated as presumptive and, if inconsistent with clinical signs and symptoms or necessary for patient management, should be tested with an alternative molecular assay. A negative result does not rule out co-infections with other pathogens. Invalid - The presence or absence of CoVID-19 Viral RNAs cannot be determined. Suggest testing with an alternate assay method. Performed By: #### C OVID #### [facility] [address] [place] [address] Influenza A AND Bon 07-05-20 Influenza A AND B Influenza A AND B NOTE: Infection due to Influenza A or Influenza B cannot be ruled out since the antigen present in the sample may be below the detection limit of the test. It is recommended that culture confirmation of negative samples be ordered on separately collected specimens. INFAInfluenza A Result NFlu A Viral RNA not detected INFBInfluenza B Result NF B Viral RNA not detected Normal [facility] Comment on above: Performed By: #### I NF #### ML , Influenza virus A and B RNA [Identifier] in Unspecified specimen by OMAYRA with probe deOrdered By: Ester Hernandez on 07-05-2023 FLUAV and FLUBV RNA OMAYRA+probe Nom (Unsp spec) [facility] - Chemistry and C hemistry - challengeOrdered By: Ester Hernandez on 07-05-2023 Anion gap [Moles/Vol] 13 mmol/L 5-13 [facility] Calcium [Mass/Vol] 9.3 mg/dL 8.4-10.2 [facility] CO2 [Moles/Vol] 19 mmol/L Low 22-29 [facility] Glucose [Mass/Vol] 128 mg/dL High 70-100 [facility] Natriuretic peptide B (Bld) [Mass/Vol] 28 pg/mL 5-100 [facility] Comment on above: BNP Interpretation<= 100 pg/mL [employer] of normal values in patients without CHF>100 pg/mL Considered abnormal and suggestive of patients with CHF Troponin I.cardiac [Mass/Vol] ng/mL Low 0.010-0.045 [facility] - Hematology and Cell countsOrdered By: Ester Hernandez on 07-05-2023 Erythrocyte distribution width (RBC) [Ratio] 12.7 % 11.7-15.5 [facility] Lymphocytes/100 WBC (Bld) 5 % Low 20-35 [facility] MCH (RBC) [Entitic mass] 29.0 pg 27.9-33.7 [facility] MCHC (RBC) [Mass/Vol] 35.7 g/dL High 33.0-35.2 [facility] Platelet mean volume (Bld) [Entitic vol] 9.4 fL 7.2-10.4 [facility] Monocytes Auto (Bld) [#/Vol] Ordered By: Ester Hernandez on 07-05-2023 Monocytes (Bld) [#/Vol] 1.1 10'3/uL High 0.3-1.0 [facility] Monocytes/100 WBC Auto (Bld) Ordered By: Ester Hernandez on 07-05-2023 Monocytes/100 WBC (Bld) 7 % 4-12 [facility] Neutrophils/100 WBC Manual c nt (Bld)Ordered By: Ester Hernandez on 07-05-2023 Neutrophils/100 WBC (Bld) 88 % High 44-75 [facility] No Panel InformationOrdered By: Ester Hernandez on 07-05-2023 Absolute Neutrophil 14.3 10'3/uL High 2.2-6.3 [facility] D-Dimer Quantitative (PE/DVT) 0.26 mg/L FEU <0.50 [facility] Comment on above: Results of the D-Dim er test should always be interpreted in conjunction with the patient's medical history, clinical presentation and other findings. Clinical diagnosis should not be based on the result of [employer] D-Dimer alone. Lymphocytes # (Auto) 0.9 10'3/uL 0.4-3.6 [facility] White Blood Count 16.3 10'3/uL High 4.1-10.2 [facility] Platelet count bloodOrdered By: Ester Hernandez on 07-05-2023 Platelets (Bld) [#/Vol] 215 10'3/uL 144-327 [facility] Serum or plasma potassium me asurement (moles/volume)Ordered By: Ester Hernandez on 07-05-2023 Potassium [Moles/Vol] 4.0 mmol/L 3.5-5.1 [facility] Thin prep Papanicolaou smear with manual screeningOrdered By: Ester Hernandez on 07-05-2023 Thin prep Papanicolaou smear with manual screening 17 mg/dL 7-18 [facility] Troponin Ion 07-05-2023 Troponin I.cardiac [Mass/Vol] ng/mL Low 0.010-0.045 [facility] Comment on above: Performed By: #### T ESTELA BM #### [facility] [address] [place] [address] Venous blood sodium measurem entOrdered By: Ester Hernandez on 07-05-2023 Sodium (BldV) [Moles/Vol] 133 mmol/L Low 136-145 [facility] Absolute lymphocyte counton 05-17-2022 Lymphocytes Auto (Unsp spec) [#/Vol] 1.30 10*3/uL 0.83-4.51 [facility] Work Phone: Basophil percentageon 2021 Basophils/100 WBC (Bld) 0.3 % 0-1 [facility] Work Phone: Eosinophils/100 WBC (Bld) 0.3 % 0-5 [facility] Work Phone: Neutrophils (Bld) [#/Vol] 10.5 10*3/uL 2.0-7.[address] [facility] Work Phone: Neutrophils/100 WBC (Bld) 79.9 % 47-[address] [facility] Work Phone: [phone] WBC (Bld) [#/Vol] 13.2 10*3/uL 4.4-11.0 [facility] Work [facility]: Blood erythrocytes count (nu mber/volume)on 05-17-2022 RBC (Bld) [#/Vol] 4.86 10*6/uL 4.6-6.2 [facility] Work Phone: Blood hemoglobin measurement (mass/volume)on 05-17-2022 Hemoglobin (Bld) [Mass/Vol] 13.5 g/dL 13.0-16.[address] [facility] Work Phone: Blood lymphocytes/100 leukoc yteson 05-17-2022 Lymphocytes/100 WBC (Bld) 9.9 % 19-[address] [facility] Work Phone: Blood monocytes/100 leukocyt eson 05-17-2022 Monocytes/100 WBC (Bld) 9.0 % 0-10 [facility] Work Phone: Blood platelet mean volumeon 05-17-2022 Platelet mean volume (Bld) [Entitic vol] 9.4 fL 6.2-12.[address] [facility] Work Phone: Determination of erythrocyte mean corpuscular volume (MCV)on 05-17-2022 MCV (RBC) [Entitic vol] 82.9 fL 80-94 [facility] Work Phone: Hematocrit Auto (Bld) [Volum e fraction]on 05-17-2022 Hematocrit (Bld) [Volume fraction] 40.3 % 40-[address] [facility] Work Phone: Laboratory - Hematology and Cell countson 05-17-2022 Erythrocyte distribution width (RBC) [Entitic vol] 37.2 fL 35.1-43.9 [facility] Work Phone: Erythrocyte distribution width (RBC) [Ratio] 12.3 % 11.6-14.[address] [facility] Work Phone: Immature granulocytes/100 WBC (Bld) 0.600 % 0.0-0.[address] [facility] Work Phone: Comment on above: IG% - Immature Granu locytes (promyelocytes, myelocytes and metamyelocytes) > 1% indicates that a LEFT SHIFT is Present. MCH (RBC) [Entitic mass] 27.8 pg 27.0-32.[address] [facility] Work Phone: Nucleated RBC/100 WBC (Bld) [Ratio] 0 % 0-[address] [facility] Work Phone: MCHC Auto (RBC) [Mass/Vol]on 05-17-2022 MCHC (RBC) [Mass/Vol] 33.5 g/dL 32-36 [facility]: Platelets bldon 05-17-2022 Platelets (Bld) [#/Vol] 272 10*3/uL 150-[address] [facility] Work Phone: Absolute lymphocyte counton 05-05-2022 Lymphocytes Auto (Unsp spec) [#/Vol] 1.08 10*3/uL 0.83-4.[address] [facility] Work Phone: Basophil percentageon 2021 Basophil percentage 0 SEEN /hpf 0-5 [facility] Work Phone: Basophils/100 WBC (Bld) 0.2 % 0-1 [facility] Work Phone: Bilirubin [Mass/Vol] 0.80 mg/dL 0.20-1.00 [facility] Work Phone: Comment on above: For patients on eltr ombopag therapy, use of Dimension Campbell TBIL is not recommended. Chloride [Moles/Vol] 106 mmol/L 98-107 [facility] Work Phone: [phone] Eosinophils/100 WBC (Bld) 1.0 % 0-[address] [facility] Work Phone: Glucose [Mass/Vol] 120 mg/dL 74-106 [facility] Work Phone: Comment on above: Fasting Glucose resu lt from 100 to 125 mg/dL suggests IMPAIRED HOMEOSTASIS per A.D.A. criteria. Neutrophils (Bld) [#/Vol] 9.2 10*3/uL 2.0-7.[address] [facility] Work Phone: Neutrophils/100 WBC (Bld) 81.3 % 47-[address] [facility] Work Phone: Potassium [Moles/Vol] 4.5 mmol/L 3.5-5.1 [facility] Work Phone: Protein [Mass/Vol] 7.1 g/dL 6.4-8.2 [facility] Work Phone: [phone] Sodium [Moles/Vol] 138 mmol/L 136-145 [facility] Work Phone: [phone] WBC (Bld) [#/Vol] 11.3 10*3/uL 4.4-11.0 [facility] Work Phone: [phone] Bilirubin Test strip Ql (U)o n 05-05-2022 Bilirubin Ql (U) Negative Negative [facility] Work Phone: Blood erythrocytes count (nu mber/volume)on 05-05-2022 RBC (Bld) [#/Vol] 5.01 10*6/uL 4.6-6.2 [facility] Work Phone: Blood hemoglobin measurement (mass/volume)on 05-05-2022 Hemoglobin (Bld) [Mass/Vol] 14.3 g/dL 13.0-16.[address] [facility] Work Phone: Blood lymphocytes/100 leukoc yteson 05-05-2022 Lymphocytes/100 WBC (Bld) 9.6 % 19-[address] [facility] Work Phone: Blood monocytes/100 leukocyt eson 05-05-2022 Monocytes/100 WBC (Bld) 7.7 % 0-10 [facility] Work Phone: Blood platelet mean volumeon 05-05-2022 Platelet mean volume (Bld) [Entitic vol] 9.6 fL 6.2-12.[address] [facility] Work Phone: Determination of erythrocyte mean corpuscular volume (MCV)on 05-05-2022 MCV (RBC) [Entitic vol] 81.2 fL 80-94 [facility] Work Phone: Hematocrit Auto (Bld) [Volum e fraction]on 05-05-2022 Hematocrit (Bld) [Volume fraction] 40.7 % 40-[address] [facility] Work Phone: Ketones Test strip Ql (U)on 05-05-2022 Ketones Ql (U) Negative Negative [facility] Work Phone: Laboratory - Chemistry and C hemistry - challengeon 05-05-2022 ALP [Catalytic activity/Vol] 74 U/L 45-[address] [facility] Work Phone: ALT [Catalytic activity/Vol] 36 U/L 16-[address] [facility] Work Phone: CO2 [Moles/Vol] 27.0 mmol/L 21.0-32.[address] [facility] Work Phone: Globulin (S) [Mass/Vol] 2.9 g/dL 2.2-4.2 [facility] Work Phone: Urea nitrogen/Creatinine [Mass ratio] 12.5 mg/mg 10-[address] [facility] Work Phone: Laboratory - Hematology and Cell countson 05-05-2022 Erythrocyte distribution width (RBC) [Entitic vol] 37.4 fL 35.1-43.9 [facility] Work Phone: Erythrocyte distribution width (RBC) [Ratio] 12.8 % 11.6-14.[address] [facility] Work Phone: Immature granulocytes/100 WBC (Bld) 0.200 % 0.0-0.[address] [facility] Work Phone: Comment on above: IG% - Immature Granu locytes (promyelocytes, myelocytes and metamyelocytes) > 1% indicates that a LEFT SHIFT is Present. MCH (RBC) [Entitic mass] 28.5 pg 27.0-32.[address] [facility] Work Phone: Nucleated RBC/100 WBC (Bld) [Ratio] 0 % 0-[address] [facility] Work Phone: MCHC Auto (RBC) [Mass/Vol]on 05-05-2022 MCHC (RBC) [Mass/Vol] 35.1 g/dL 32-36 [facility] Work Phone: Mucus LM Ql (Urine sed)on Mucus Ql (Urine sed) 0 SEEN /hpf [facility] Work Phone: Nitrite Test strip Ql (U)on 05-05-2022 Nitrite Ql (U) Negative Negative [facility] Work Phone: No Panel Informationon 05-05 Estimated Creatinine Clearance Calc 114.44 ml/min [facility] Work Phone: Estimated GFR (MDRD) Amer 88 mL/min >[address] [facility] Work Phone: Comment on above: GFR Calc Estimated GFR (MDRD) Non-Af Amer 72 mL/min >[address] [facility] Work Phone: Comment on above: Non- GFR Calc Platelets bldon 05-05-2022 Platelets (Bld) [#/Vol] 210 10*3/uL 150-[address] [facility] Work Phone: Protein Test strip Ql (U)on 05-05-2022 Protein Ql (U) Negative Negative [facility] Work Phone: Serum or plasma albumin karlene urement (mass/volume)on 05-05-2022 Albumin [Mass/Vol] 4.2 g/dL 3.2-5.0 [facility] Work Phone: Serum or plasma albumin/glob ulin mass ratioon 05-05-2022 Albumin/Globulin [Mass ratio] 1.4 {ratio} 0.9-2.[address] [facility] Work Phone: Serum or plasma calcium karlene urement (mass/volume)on 05-05-2022 Calcium [Mass/Vol] 9.2 mg/dL 8.5-10.1 [facility] Work Phone: Serum or plasma creatinine m easurement (mass/volume)on 05-05-2022 Creatinine [Mass/Vol] 1.20 mg/dL 0.70-1.30 [facility] Work Phone: Comment on above: The validity of the calculated GFR & GFRAA in patients over 70 years has not been determined. Clinical correlation is essential. Serum or plasma urea nitroge n measurement (mass/volume)on 05-05-2022 Urea nitrogen [Mass/Vol] 15 mg/dL 7-[address] [facility] Work Phone: Squamous epithelial cells de tection in urine sediment by light microscopyon 05-05-2022 Epithelial cells.squamous LM Ql (Urine sed) 0 SEEN /hpf 0-[address] [facility] Work Phone: Thin prep Papanicolaou smear with manual screeningon 05-05-2022 Thin prep Papanicolaou smear with manual screening 28 U/L 15-37 [facility] Work Phone: Thin prep Papanicolaou smear with manual screening 5 5-[address] [facility] Work Phone: Urine blood detectionon 04-14 RBC Ql (U) Negative Negative [facility] Work Phone: RBC Ql (U) 0 SEEN /hpf 0-[address] [facility] Work Phone: Urine clarityon 05-05-2022 Clarity (U) Clear Clear [facility] Work Phone: Urine color determinationon 05-05-2022 Color (U) Yellow Yellow [facility] Work Phone: Urine glucose detectionon Glucose Ql (U) Normal mg/dl Normal [facility] Work Phone: Urine leukocyte esterase det ection by dipstickon 05-05-2022 Leukocyte esterase Test strip Ql (U) Negative Negative [facility] Work Phone: Urine pHon 05-05-2022 pH (U) 5.0 [pH] 5.0 - 8.[address] [facility] Work Phone: Urine sediment bacteria coun t by microscopy (number/high power field)on 05-05-2022 Bacteria LM.HPF (Urine sed) [#/Area] 0 /[HPF] None Seen [facility] Work Phone: Urine specific gravity measu rementon 05-05-2022 Specific gravity (U) [Rel density] 1.020 1.002-1.[address] [facility] Work Phone: Urobilinogen Auto test strip Ql (U)on 05-05-2022 Urobilinogen Ql (U) Normal mg/dl Normal [facility] Work Phone: Absolute lymphocyte counton 11-14-2021 Lymphocytes Auto (Unsp spec) [#/Vol] 1.53 10*3/uL 0.83-4.[address] [facility] Work Phone: Basophil percentageon 2021 Basophils/100 WBC (Bld) 0.4 % 0-1 [facility] Work Phone: Bilirubin [Mass/Vol] 0.50 mg/dL 0.20-1.00 [facility] Work Phone: Comment on above: For patients on eltr ombopag therapy, use of Dimension Campbell TBIL is not recommended. Chloride [Moles/Vol] 108 mmol/L 98-107 [facility] Work Phone: Cholesterol [Mass/Vol] 151 mg/dL <200 [facility] Work Phone: Comment on above: <200 mg/dL Desirable 200-240 mg/dL Borderline >240 mg/dL High Risk Eosinophils/100 WBC (Bld) 2.8 % 0-[address] [facility] Work Phone: Glucose [Mass/Vol] 112 mg/dL 74-106 [facility] Work Phone: Comment on above: Fasting Glucose resu lt from 100 to 125 mg/dL suggests IMPAIRED HOMEOSTASIS per A.D.A. criteria. Neutrophils (Bld) [#/Vol] 2.7 10*3/uL 2.0-7.[address] [facility] Work Phone: Neutrophils/100 WBC (Bld) 54.9 % 47-[address] [facility] Work Phone: Potassium [Moles/Vol] 4.4 mmol/L 3.5-5.1 [facility] Work Phone: Protein [Mass/Vol] 6.9 g/dL 6.4-8.2 [facility] Work Phone: Sodium [Moles/Vol] 140 mmol/L 136-145 [facility] Work Phone: Triglyceride [Mass/Vol] 117 mg/dL [facility] Work Phone: Comment on above: The drugs N-Acetylcy steine and Metamizole may falsely depress this assay.Serum Triglycerides Reference Interval Normal <150 mg/dL Borderline high 150 - 199 mg/dL High 200 - 499 mg/dL Very High > or = 500 mg/dL WBC (Bld) [#/Vol] 4.9 10*3/uL 4.4-11.0 [facility] Work Phone: Blood erythrocytes count (nu mber/volume)on 11-14-2021 RBC (Bld) [#/Vol] 4.67 10*6/uL 4.6-6.2 [facility] Work Phone: Blood hemoglobin measurement (mass/volume)on 11-14-2021 Hemoglobin (Bld) [Mass/Vol] 13.4 g/dL 13.0-16.[address] [facility] Work Phone: Blood lymphocytes/100 leukoc yteson 11-14-2021 Lymphocytes/100 WBC (Bld) 31.1 % 19-[address] [facility] Work Phone: Blood monocytes/100 leukocyt eson 11-14-2021 Monocytes/100 WBC (Bld) 10.4 % 0-10 [facility] Work Phone: Blood platelet mean volumeon 11-14-2021 Platelet mean volume (Bld) [Entitic vol] 9.7 fL 6.2-12.[address] [facility] Work Phone: Determination of erythrocyte mean corpuscular volume (MCV)on 11-14-2021 MCV (RBC) [Entitic vol] 82.9 fL 80-94 [facility] Work Phone: Hematocrit Auto (Bld) [Volum e fraction]on 11-14-2021 Hematocrit (Bld) [Volume fraction] 38.7 % 40-[address] [facility] Work Phone: Laboratory - Chemistry and C hemistry - challengeon 11-14-2021 ALP [Catalytic activity/Vol] 67 U/L 45-[address] [facility] Work Phone: ALT [Catalytic activity/Vol] 46 U/L 16-[address] [facility] Work Phone: CO2 [Moles/Vol] 28.0 mmol/L 21.0-32.[address] [facility] Work Phone: Free T4 [Mass/Vol] 0.93 ng/dL 0.76-1.46 [facility] Work Phone: Globulin (S) [Mass/Vol] 3.0 g/dL 2.2-4.2 [facility] Work Phone: Urea nitrogen/Creatinine [Mass ratio] 14.4 mg/mg 10-[address] [facility] Work Phone: Laboratory - Hematology and Cell countson 11-14-2021 Erythrocyte distribution width (RBC) [Entitic vol] 37.5 fL 35.1-43.9 [facility] Work Phone: Erythrocyte distribution width (RBC) [Ratio] 12.6 % 11.6-14.[address] [facility] Work Phone: Immature granulocytes/100 WBC (Bld) 0.400 % 0.0-0.[address] [facility] Work Phone: Comment on above: IG% - Immature Granu locytes (promyelocytes, myelocytes and metamyelocytes) > 1% indicates that a LEFT SHIFT is Present. MCH (RBC) [Entitic mass] 28.7 pg 27.0-32.[address] [facility] Work Phone: Nucleated RBC/100 WBC (Bld) [Ratio] 0 % 0-[address] [facility] Work Phone: MCHC Auto (RBC) [Mass/Vol]on 11-14-2021 MCHC (RBC) [Mass/Vol] 34.6 g/dL 32-36 [facility] Work Phone: No Panel Informationon 11-14 Estimated GFR (MDRD) Amer 104 mL/min >[address] [facility] Work Phone: Comment on above: GFR Calc Estimated GFR (MDRD) Non-Af Amer 86 mL/min >[address] [facility] Work Phone: Comment on above: Non- GFR Calc Thyroid Stimulating Hormone (TSH) 2.17 uIU/mL 0.358-3.[address] [facility] Work Phone: Platelets bldon 11-14-2021 Platelets (Bld) [#/Vol] 240 10*3/uL 150-[address] [facility] Work Phone: Serum or plasma albumin karlene urement (mass/volume)on 11-14-2021 Albumin [Mass/Vol] 3.9 g/dL 3.2-5.0 [facility] Work Phone: Serum or plasma albumin/glob ulin mass ratioon 11-14-2021 Albumin/Globulin [Mass ratio] 1.3 {ratio} 0.9-2.[address] [facility] Work Phone: Serum or plasma calcium karlene urement (mass/volume)on 11-14-2021 Calcium [Mass/Vol] 8.5 mg/dL 8.5-10.1 [facility] Work Phone: Serum or plasma cholesterol in HDL measurement (mass/volume)on 11-14-2021 Cholesterol in HDL [Mass/Vol] 30 mg/dL [facility] Work Phone: Comment on above: The drugs N-Acetylcy steine and Metamizole may falsely depress this assay. Reference Range HDL <40 mg/dL Low HDL Cholesterol HDL >or= 60 mg/dL High HDL Cholesterol Serum or plasma cholesterol in VLDL measurement (mass/volume)on 11-14-2021 Cholesterol in VLDL [Mass/Vol] 23 mg/dL 5-[address] [facility] Work Phone: Serum or plasma creatinine m easurement (mass/volume)on 11-14-2021 Creatinine [Mass/Vol] 1.04 mg/dL 0.70-1.30 [facility] Work Phone: Comment on above: The validity of the calculated GFR & GFRAA in patients over 70 years has not been determined. Clinical correlation is essential. Serum or plasma low density lipoprotein (LDL) cholesterol measurement (mass/volume)on 11-14-2021 Cholesterol in LDL [Mass/Vol] 98 mg/dL 0-[address] [facility] Work Phone: Serum or plasma urea nitroge n measurement (mass/volume)on 11-14-2021 Urea nitrogen [Mass/Vol] 15 mg/dL 7-[address] [facility] Work Phone: Thin prep Papanicolaou smear with manual screeningon 11-14-2021 Thin prep Papanicolaou smear with manual screening 29 U/L 15-[address] [facility] Work Phone: Thin prep Papanicolaou smear with manual screening 4 5-[address] [facility] Work Phone: Whole blood hemoglobin A1c/t otal hemoglobin ratio (mass fraction)on 11-14-2021 HbA1c (Bld) [Mass fraction] 5.1 % 3.8-5.[address] [facility] Work Phone: Comment on above: Normal < 5.7 % Predi abetic 5.7 - 6.4 % Diabetic >or= 6.5 % Please note range changes. CNOVon 12-28-2020 CNOV Office Visit (AGHWG1) ---- ESTEBAN GROSSMAN ([id number]) 1985 M Date Time Provider Department 12/28/20 9:30 AM [facility] your visit today, we recorded the following information about you: Respiration Weight Height 16/minute 136.1 kg 2.032 m Caleb Catherine 12/28/2020 5:33 PM Signed REVIEW OF SYSTEMS: GENERAL: Well developed, well nourished. No acute distress PAIN: Negative for pain, history of chronic pain or current treatment for chronic pain conditions CARDIOVASCULAR: Negative for chest pain, leg swelling and palpations. MSK: Negative for joint swelling SKIN: Negative for lesions, rash, itching, metal sensitivity NEURO: Negative for seizure, trauma, numbness/tingling of extremities. ENDOCRINE: Negative for diabetic associated symptoms HEMATOLOGY: Negative for excessive bleeding, clots, bleeding disorders. Haritha StangabyHUNTER 12/28/2020 5:33 PM Signed CC: Right forefoot pain HPI: This 35 year old male presents today for follow up wart right foot and pain to bottom of his right great toe. States that the feeling he had of walking on a pebble has gone away. Has been using the dancers pads and states that believes these have helped as well. Not experiencing much right foot pain at this time. Does have a new complaint of pain to the left hallux toenail which is intermittent in nature. Points to medial nail border. Denies drainage. Denies any other pedal complaints. Te Galan MD History reviewed. No pertinent past medical history. Current Outpatient Medications Medication Sig Dispense Refill - ondansetron orally disintegrating (ZOFRAN ODT) 4 mg disintegrating tablet Take 1 tablet by mouth every 8 hours as needed. 12 tablet 0 - dicyclomine (BENTYL) 20 mg tablet Take 1 tablet by mouth four times daily as needed (for abdominal cramping). 12 tablet 0 No current facility-administer ed medications for this visit. ALLERGIES No Known Allergies REVIEW OF SYSTEMS MSK: + as noted in HPI. Physical examination: On General Observation: Patient is a pleasant, cooperative, well developed 35 year old adult male. The patient is alert and oriented to time, place and person. Patient has normal affect and mood. Resp 16 Ht 203.2 cm (6' 8) Wt 136.1 kg (300 lb) BMI 32.96 kg/m? Vascular: DP and PT pulses are palpable. CFT less than 3 seconds to all digits. Skin temperature is warm to warm from proximal to distal. Hair growth is noted. No edema noted Neuro: Light touch intact. Protective sensation intact at all pedal sites via [place] Elia 5.07 monofilament. Derm: Skin texture and turgor within normal limits. Webspaces 1-4 clean, dry, intact bilateral. Area of previous hyperkeratotic lesion noted to the plantar aspect of right first metatarsal head appears resolved. Incurvation noted to the medial nail border of the left hallux nail plate. + tenderness to palpation. No erythema or edema noted. No drainage noted. Musc: Elevated medial longitudinal arch. Muscle strength is 5/5 for all muscle groups including dorsiflexors, plantarflexors, everters, and inverters b/l. There is no pain to palpation of the plantar aspect of right first MPJ or sesamoids. Decreased right first MPJ range of motion without pain or crepitus. Negative [place]?s test or signs of intermetatarsal neuroma. No tingling or burning sensations noted. No pain to palpation tarsometatarsal joint complex or with range of motion of tarsometatarsal joints. Ankle joint ROM is decreased/l, STJ, and MTJ ROM full without pain or crepitus. Impression: This is a 35 year old patient with subjective idiopathic right foot neuropathy presenting with resolved plantar wart to right foot sub1st metatarsal versus sesamoiditis and hallux limitus and equinus Incurvated toenail left hallux medial nail border Plan: A history and physical examination were preformed. The patient was educated on clinical and radiographic findings, diagnosis and treatment plans. Patient state that he understands all that has been explained and all questions were answered to his apparent satisfaction. - Discussed findings and possible etiology of patient's condition. - Patient with pain underlying the 1st metatarsal head which is resolved today. Continue dancers pad and inserts. Discussed custom inserts in the future if needed. - Verruca appears resolved today. Patient to monitor for recurrence. - OTC NSAIDs as needed - Discussed treatment options for incurvated left hallux nail plate including slant back procedure verse partial permanent nail avulsion. Pt elects to proceed with slant back today. Slant back performed to the medial nail border of the left hallux with resolution of pain. Bandage applied overlying. Discussed procedure in the future is patient chooses. -Follow up as needed. Haritha Vasquez DPM Referring Provider: SELF (more content not included)... Normal [facility] CNOVon 11-23-2020 CNOV Office Visit (AGHWG1) ---- ESTEBAN GROSSMAN ([id number]) 1985 M Date Time Provider Department 11/23/20 2:30 PM HARITHA VASQUEZ [facility] During your visit today, we recorded the following information about you: Respiration Weight Height 18/minute 136.1 kg 2.032 m Caleb Guallpa 11/26/2020 11:15 PM Signed REVIEW OF SYSTEMS: GENERAL: Well developed, well nourished. No acute distress PAIN: Pain rt foot CARDIOVASCULAR: Negative for chest pain, leg swelling and palpations. MSK: Negative for joint swelling SKIN: Negative for lesions, rash, itching, metal sensitivity NEURO: Negative for seizure, trauma, numbness/tingling of extremities. ENDOCRINE: Negative for diabetic associated symptoms HEMATOLOGY: Negative for excessive bleeding, clots, bleeding disorders. Haritha Vasquez DPM 11/26/2020 11:15 PM Signed CC: Right forefoot pain HPI: This 35 year old male presents today for follow up wart right foot and pain to bottom of his right great toe. Patient states that wart did blister after application of cryotherapy. States that feeling of walking on pebble has gone away. Still having some pain to the area under the great toe. States that did get powerstep inserts and have ordered dancers pads but has not received them yet. Denies any other pedal complaints. Te Galan MD History reviewed. No pertinent past medical history. Current Outpatient Medications Medication Sig Dispense Refill - ondansetron orally disintegrating (ZOFRAN ODT) 4 mg disintegrating tablet Take 1 tablet by mouth every 8 hours as needed. 12 tablet 0 - dicyclomine (BENTYL) 20 mg tablet Take 1 tablet by mouth four times daily as needed (for abdominal cramping). 12 tablet 0 No current facility-administer ed medications for this visit. ALLERGIES No Known Allergies REVIEW OF SYSTEMS MSK: + as noted in HPI. Physical examination: On General Observation: Patient is a pleasant, cooperative, well developed 35 year old adult male. The patient is alert and oriented to time, place and person. Patient has normal affect and mood. Resp 18 Ht 203.2 cm (6' 8) Wt 136.1 kg (300 lb) BMI 32.96 kg/m? Right LE Vascular: DP and PT pulses are palpable. CFT less than 3 seconds to all digits. Skin temperature is warm to warm from proximal to distal. Hair growth is noted. No edema noted to the right foot Neuro: Light touch intact. Protective sensation intact at all pedal sites via [place] Elia 5.07 monofilament. Derm: Skin texture and turgor within normal limits. Webspaces 1-4 clean, dry, intact bilateral. A small hyperkeratotic lesion noted to the plantar aspect of right first metatarsal head. Upon debridement of lesion, there is thrombosed capillaries with pinpoint bleeding and disruption of skin lines consistent with verruca. Lesion measures 2mm x 2mm. Musc: Elevated medial longitudinal arch. Muscle strength is 5/5 for all muscle groups including dorsiflexors, plantarflexors, everters, and inverters b/l. There is pinpoint pain to palpation overlying the plantar aspect of right first MPJ at region of verruca as well as the sesamoids (these are very close proximity to one another). More tender to fibular sesamoid today. There is no accompanying local effusion to this area. Decreased right first MPJ range of motion without pain or crepitus. Negative Trenton?s test or signs of intermetatarsal neuroma. No tingling or burning sensations noted. No pain to palpation tarsometatarsal joint complex or with range of motion of tarsometatarsal joints. Ankle joint ROM is decreased/l, STJ, and MTJ ROM full without pain or crepitus. Impression: This is a 35 year old patient with subjective idiopathic right foot neuropathy presenting with plantar wart to right foot sub1st metatarsal versus sesamoiditis and hallux limitus and equinus Plan: A history and physical examination were preformed. The patient was educated on clinical and radiographic findings, diagnosis and treatment plans. Patient state that he understands all that has been explained and all questions were answered to his apparent satisfaction. - Discussed findings and possible etiology of patient's condition. - Patient with pain underlying the 1st metatarsal head which is improved. On palpation pain is to plantar verruca and tibial sesamoid. These are in very close proximity thus difficult to tell which is more symptomatic. Will continue to address both issues. - We discussed the options for treatment. We discussed the nature of verrucas, that they can be resistant to treatment and that recurrence can occur. We discussed and recommended cryotherapy today. Patient verbalized understanding and elects to proceed. Elects to continue with cryotherapy treatment today. Patient was educated on details of the procedure as well as medically reasonable risks, benefits and complications. (more content not included)... Normal [facility] CNOVon 11-02-2020 CNOV Office Visit (AGHWG1) ---- ESTEBAN GROSMSAN ([id number]) 1985 M Date Time Provider Department 11/02/20 8:30 AM [facility] During your visit today, we recorded the following information about you: Respiration Weight Height 18/minute 141.5 kg 2.032 m Caleb Guallpa Tech 11/03/2020 10:52 AM Signed REVIEW OF SYSTEMS: GENERAL: Well developed, well nourished. No acute distress PAIN: Pain rt foot CARDIOVASCULAR: Negative for chest pain, leg swelling and palpations. MSK: Negative for joint swelling SKIN: Negative for lesions, rash, itching, metal sensitivity NEURO: Negative for seizure, trauma, numbness/tingling of extremities. ENDOCRINE: Negative for diabetic associated symptoms HEMATOLOGY: Negative for excessive bleeding, clots, bleeding disorders. Haritha Vasquez DPM 11/03/2020 10:52 AM Signed CC: Right forefoot pain HPI: This 35 year old male with PMH indicated below presents today complaining of a pain to bottom of his right great toe. Pain has been present for greater than a year. Pain is present mostly during ambulation and worst with prolong ambulation. Patient describes pain as achy rated as 3/10. Admits to increase in pain with pressure to the area. Denies swelling or redness. Denies overt injury. Denies to numbness and tingling to the toe. Patient admits use of analgesics with mild relief. Relates to history of right foot puncture injury about 7 years ago that resolved without complication. He relates to recent nerve conduction study and diagnosis with sensory neuropathy. Denies any other pedal complaints. Te Galan MD History reviewed. No pertinent past medical history. Current Outpatient Medications Medication Sig Dispense Refill - ondansetron orally disintegrating (ZOFRAN ODT) 4 mg disintegrating tablet Take 1 tablet by mouth every 8 hours as needed. 12 tablet 0 - dicyclomine (BENTYL) 20 mg tablet Take 1 tablet by mouth four times daily as needed (for abdominal cramping). 12 tablet 0 No current facility-administer ed medications for this visit. ALLERGIES No Known Allergies History reviewed. No pertinent surgical history. Social History Tobacco Use - Smoking status: Never Smoker - Smokeless tobacco: Never Used Substance Use Topics - Alcohol use: Not on file - Drug use: Not on file History reviewed. No pertinent family history. REVIEW OF SYSTEMS MSK: + as noted in HPI. Physical examination: On General Observation: Patient is a pleasant, cooperative, well developed 35 year old adult male. The patient is alert and oriented to time, place and person. Patient has normal affect and mood. Resp 18 Ht 203.2 cm (6' 8) Wt (!) 141.5 kg (312 lb) BMI 34.27 kg/m? Right LE Vascular: DP and PT pulses are palpable. CFT less than 3 seconds to all digits. Skin temperature is warm to warm from proximal to distal. Hair growth is noted. No edema noted to the right foot Neuro: Light touch intact. Protective sensation intact at all pedal sites via [place] Elia 5.07 monofilament. Derm: Skin texture and turgor within normal limits. Webspaces 1-4 clean, dry, intact bilateral. A small hyperkeratotic lesion noted to the plantar aspect of right first metatarsal head. Upon debridement of lesion, there is thrombosed capillaries with pinpoint bleeding and disruption of skin lines consistent with verruca. Lesion measures 5mm x 3mm. Musc: Elevated medial longitudinal arch. Muscle strength is 5/5 for all muscle groups including dorsiflexors, plantarflexors, everters, and inverters b/l. There is pinpoint pain to palpation overlying the plantar aspect of right first MPJ at region of verruca as well as the tibial sesamoid (these are very close proximity to one another). There is no accompanying local effusion to this area. Decreased right first MPJ range of motion without pain or crepitus. Negative [place]on?s test or signs of intermetatarsal neuroma. No tingling or burning sensations noted. No pain to palpation tarsometatarsal joint complex or with range of motion of tarsometatarsal joints. Ankle joint ROM is decreased/l, STJ, and MTJ ROM full without pain or crepitus. Radiographs: 3 views of the right foot were taken today. Radiographic impression: Joint spaces maintained with exception of the right first MPJ that shows slightly narrowed joint space with dorsal spurring. No acute fractures or dislocations noted. No bony cyst or tumors noted. Impression: This is a 35 year old patient with subjective idiopathic right foot neuropathy presenting with plantar wart to right foot sub1st metatarsal versus sesamoiditis and hallux limitus and equinus Plan: A comprehensive history and physical examination were preformed. The patient was educated on clinical and radiographic findings, diagnosis and treatment plans. Patient state that he understands all that has been exp (more content not included)... Normal [facility] CNPNon 10-10-2020 CNPN Telephone (AGPOB1) ---- ESTEBAN GROSSMAN ([id number]) 1985 M Date Time Provider Department 10/10/20 [facility] During your visit today, we recorded the following information about you: Anya Majano Digital Librarian [facility] 10/10/2020 10:02 AM Signed ----- Message from Bambi Loja sent at 10/10/2020 9:31 AM EDT ----- Regarding: Orthopedics / Open Foot: RFV Not Found / RFV Not Found In Schd Tool Contact: Patient has been identified by name and Date of (Y/N): n Patient: Esteban Grossman Date of : 1985 Previous Provider Seen: no Body Part(s) Identified: Right Foot Diagnosis/Reason For Visit: Right Foot Reason for the call/escalation: Per Ortho Tool If reason for call/escalation is discharge from ED/ER or Hospital, which facility was the patient seen at: n/a Was an appointment scheduled (Y/N): n Person calling if other than patient: n Return call to if other than patient: n Best contact number: [phone] Bambi Loja October 10, 2020 9:31 AM Anya Majano [place] [facility] 10/10/2020 10:03 AM Signed Returned call spoke with patient appointment was scheduled Anya Cox Allergies As of Date: 10/10/2020 (No Known Allergies) Date Reviewed: 06/23/2018 Reviewed by: Mariam Briggs Ma - Fully Assessed Reason for Visit: Appointment [186] Prescriptions as of 10/10/2020 Sig: ONDANSETRON 4 MG DISINTEGRATI* Take 1 tablet by mouth every * DICYCLOMINE 20 MG TABLET Take 1 tablet by mouth four t* Problem List As Of Date: 10/10/2020 (None) Encounter Status:Closed by ANYA BOURGEOIS on 10/10/20 [facility] Vital Signs Date Time Vital Sign Value Performing Clinician Giovanny lowry 09-27-2023 01:00-0400 Diastolic blood pressure 97 mm[Hg] [facility] 09-27-2023 01:00-0400 Heart rate 87 /min [facility] 09-27-2023 01:00-0400 Respiratory rate 18 /min [facility] 09-27-2023 01:00-0400 SaO2% (BldA) [Mass fraction] 100 % [facility] 09-27-2023 01:00-0400 Systolic blood pressure 167 mm[Hg] [facility] 09-26-2023 22:59-0400 Body height 203.2 cm [facility] 09-26-2023 22:59-0400 Body temperature 97.8 [degF] [facility] 07-05-2023 22:59-0500 Body temperature 97.3 [degF] No PCP [facility] 07-05-2023 17:55-0500 Body height 203.[address] [facility] 07-05-2023 17:55-0500 Body mass index (BMI) [Ratio] 36.2 kg/m2 No [facility] 07-05-2023 17:55-0500 Body weight 149.[address] [facility] 07-05-2023 17:55-0500 Diastolic blood pressure 60 mm[Hg] No [facility] 07-05-2023 17:55-0500 Heart rate 111 /min No [facility] 07-05-2023 17:55-0500 Respiratory rate 20 /min No [facility] 07-05-2023 17:55-0500 SaO2% (BldA) [Mass fraction] 92 % No [facility] 07-05-2023 17:55-0500 Systolic blood pressure 111 mm[Hg] No [facility] 07-05-2023 14:24-0500 Body temperature 99 [degF] No [facility] 07-05-2023 14:24-0500 Diastolic blood pressure 55 mm[Hg] No [facility] 07-05-2023 14:24-0500 Heart rate 84 /min No [facility] 07-05-2023 14:24-0500 Respiratory rate 16 /min No [facility] 07-05-2023 14:24-0500 SaO2% (BldA) [Mass fraction] 96 % No [facility] 07-05-2023 14:24-0500 Systolic blood pressure 104 mm[Hg] No [facility] 07-05-2023 11:44-0500 Body height 203.[address] [facility] 07-05-2023 11:44-0500 Body mass index (BMI) [Ratio] 36.2 kg/m2 No [facility] 07-05-2023 11:44-0500 Body weight 149.[address] [facility] 05-17-2022 14:17-0400 Body temperature 97.4 [degF] Dr. Mark Roman Work Phone: [facility] Work Phone: 05-17-2022 14:17-0400 Diastolic blood pressure 76 mm[Hg] Dr. Mark Roman Work Phone: [facility] Work Phone: 05-17-2022 14:17-0400 Heart rate 97 /min Dr. Mark Roman Work Phone: [facility] Work Phone: 05-17-2022 14:17-0400 Respiratory rate 17 /min Dr. Mark Roman Work Phone: [facility] Work Phone: 05-17-2022 14:17-0400 SaO2% (BldA) [Mass fraction] 99 % Dr. Mark Roman Work Phone: [facility] Work Phone: 05-17-2022 14:17-0400 Systolic blood pressure 130 mm[Hg] Dr. Mark Roman Work Phone: [facility] Work Phone: 05-05-2022 17:34-0400 Body temperature 98.1 [degF] Dr. Mark Roman Work Phone: [facility] Work Phone: 05-05-2022 17:34-0400 Diastolic blood pressure 85 mm[Hg] Dr. Mark Roman Work Phone: [facility] Work Phone: 05-05-2022 17:34-0400 Heart rate 78 /min Dr. Mark Roman Work Phone: [facility] Work Phone: 05-05-2022 17:34-0400 Respiratory rate 18 /min Dr. Mark Roman Work Phone: [facility] Work Phone: 05-05-2022 17:34-0400 SaO2% (BldA) [Mass fraction] 97 % Dr. Mark Roman Work Phone: [facility] Work Phone: 05-05-2022 17:34-0400 Systolic blood pressure 142 mm[Hg] Dr. Mark Roman Work Phone: [facility] Work Phone: 05-05-2022 12:59-0400 Body temperature 98 [degF] [facility] Work Phone: 05-05-2022 12:59-0400 Diastolic blood pressure 82 mm[Hg] [facility] Work Phone: 05-05-2022 12:59-0400 Heart rate 60 /min [facility] Work Phone: 05-05-2022 12:59-0400 Respiratory rate 12 /min [facility] Work Phone: 05-05-2022 12:59-0400 SaO2% (BldA) [Mass fraction] 96 % [facility] Work Phone: 05-05-2022 12:59-0400 Systolic blood pressure 147 mm[Hg] [facility] Work Phone: 05-05-2022 10:29-0400 Body height 203.2 cm [facility] Work Phone: 05-05-2022 10:29-0400 Body mass index (BMI) [Ratio] 35.4 kg/m2 [facility] Work Phone: 05-05-2022 10:29-0400 Body weight 146.14 kg [facility] Work Phone: Encounters Encounter Date Encounter Type Care Provider Facility Start: 10-25-2024 Encounter for genera l adult medical examination without abnormal findings Te Neville [facility] Start: 10-19-2024 End: 10-19-[address] Te Neville MD Work Phone: [facility] Work Phone: Start: 10-19-2024 End: 10-19-[address] Te Neville MD -Laboratory, [facility] Start: 10-19-2024 End: 10-19-2024 ambulatory Te Neville Facility:[facility] Start: 10-28-2023 End: 10-28-[address] [facility] Work Phone: Start: 10-28-2023 End: 10-28-2023 [facility] Start: 10-28-2023 End: 10-28-2023 ambulatory Te Neville Facility:[facility] Start: 09-26-2023 End: 09-27-2023 Emergency department patient visit [facility]Emergency Department Work Phone: Start: 07-21-2023 End: 07-21-[address] [facility] Work Phone: Start: 07-21-2023 End: 07-21-2023 Patient encounter procedure [facility], [facility] Work Phone: Start: 07-06-2023 End: 07-06-2023 ambulatory No PCP Facility:[facility] Start: 07-05-2023 Evaluation and management of inpatient No PCP [facility] Start: 07-05-2023 observation encounter No PCP [facility] Work Phone: Start: 07-05-2023 End: 07-05-2023 Emergency department patient visit No PCP Facility:[facility] Start: 07-05-2023 End: 07-05-2023 Emergency department patient visit No PCP [facility]Emergency Department Start: 05-17-2022 End: 05-17-[address] Mark Roman Work Phone: [facility] Work Phone: Start: 05-17-2022 End: 05-17-[address] Mark Roman Work Phone: [facility]-Cat Scan, [facility] Start: 05-17-2022 End: 05-17-[address] Mark Roman Work Phone: [facility] Work Phone: Start: 05-17-2022 End: 05-17-[address] Mark Roman Work Phone: [facility] Start: 05-13-2022 End: 05-13-[address] Mark Roman Work Phone: [facility] Start: 05-05-2022 Non-patient / Non-visit Dr. Raciel Roman Work Phone: [facility] Start: 05-05-2022 End: 05-05-2022 Admission to same day surgery center [facility] Start: 05-05-2022 End: 05-05-[address] Mark Roman Work Phone: [facility] Work Phone: Start: 11-19-2021 End: 11-19-2021 Patient encounter procedure [facility]-Ultrasound, [facility] Start: 11-14-2021 End: 11-14-2021 Patient encounter procedure [facility]-Laboratory, [facility] Procedures Date Procedure Procedure Detail Performing Clinician Start: 09-26-2023 Radiography of ankle Start: 09-26-2023 X-ray of both feet Start: 07-21-2023 Plain chest X-ray Start: 07-05-2023 Influenza Types A & B (OMAYRA) No PCP Start: 07-05-2023 Blood count hematocrit No PCP Start: 05-17-2022 Computed tomography of abdomen and pelvis with contrast Dr. Mark Roman Work Phone: Start: 05-05-2022 Computed tomography of abdomen and pelvis with intravenous contrast Start: 11-19-2021 US scan of thyroid Plan of Treatment Date Care Activity Detail Author Start: 09-27-[address] [facility] Start: 07-14-2023 Basic metabolic 2000 panel - Serum or Plasma [facility] Start: 07-14-2023 CBC W Auto Differential panel - Blood [facility] Start: 07-13-2023 Basic metabolic 2000 panel - Serum or Plasma [facility] Start: 07-13-2023 CBC W Auto Differential panel - Blood [facility] Start: 07-12-2023 Basic metabolic 1999 panel - Serum or Plasma [facility] Start: 07-12-2023 CBC W Auto Differential panel - Blood [facility] Start: 07-11-2023 Basic metabolic 1999 panel - Serum or Plasma [facility] Start: 07-11-2023 CBC W Auto Differential panel - Blood [facility] Start: 07-10-2023 Basic metabolic 1999 panel - Serum or Plasma [facility] Start: 07-10-2023 CBC W Auto Differential panel - Blood [facility] Start: 07-09-2023 Basic metabolic 1999 panel - Serum or Plasma [facility] Start: 07-09-2023 CBC W Auto Differential panel - Blood [facility] Start: 07-08-2023 Basic metabolic 1999 panel - Serum or Plasma [facility] Start: 07-08-2023 CBC W Auto Differential panel - Blood [facility] Start: 07-07-2023 Basic metabolic 1999 panel - Serum or Plasma [facility] Start: 07-07-2023 CBC W Auto Differential panel - Blood [facility] Start: 07-06-2023 Basic metabolic 1999 panel - Serum or Plasma [facility] Start: 07-06-2023 CBC W Auto Differential panel - Blood [facility] Start: 07-05-2023 Hospital admission, for observation [facility] Start: 07-05-2023 CT angiography of thorax CT angio chest PE protocol [facility] Start: 07-05-2023 CT Pulmonary arteries for pulmonary embolus [facility] Start: 07-05-2023 Plain chest X-ray XR chest 2V [facility] Start: 07-05-2023 XR Chest 2 Views [facility] Start: 07-05-2023 12 lead ECG CA EKG 12 lead [facility] Start: 07-05-2023 EKG 12 channel panel [facility] Start: 05-05-2022 Patient discharge [facility] Work Phone: Start: 05-05-2022 Laparoscopic appendectomy Laparoscopic, Appendectomy (Not Applicable) [facility] Work Phone: Start: 05-05-2022 Anesthesia intraperitoneal lower abd w/laps nos ANESTH SURG LOWER ABDOMEN [facility] Work Phone: Start: 05-05-2022 Laparoscopic appendectomy LAPAROSCOPY APPENDECTOMY [facility] Work Phone: Patient Education [facility] Work Phone: Patient referral [facility] Work Phone: Payers Date Payer Category Payer Private Health Insurance [id number] 2023 Self-pay [id number] 2023 Unknown [id number] 1985 Unknown [id number] Private Health Insurance [id number] Unknown [id number] Unknown [id number] Unknown [id number] Social History Date Type Detail Facility Start: 01-26-2021 End: 09-26-2023 Tobacco smoking status NHIS Unknown if ever smoked [facility] Start: 1985 Sex Assigned At Male [facility] Start: 07-05-2023 End: 09-26-2023 Tobacco smoking status NHIS Never smoked tobacco (finding) [facility] Start: 07-05-2023 Turkish [facility] Start: 07-05-2023 0 [facility] Start: 07-05-2023 Denies Use [facility] Start: 07-05-2023 Never Used [facility] Start: 07-05-2023 With Spouse/Significant Other [facility] Start: 10-25-2024 Sex Male (finding) [facility] Medical Equipment Procedure Code Equipment Code Equipment Origin al Text Equipment Identifier Dates Appendectomy, laparoscopic Surgical staple loading unit, non-cutting [id number] FDA Start: 05-05-2022 Goals Date Patient Goal Desired Activity /State Mental Status Date Assessment Result Facility 05-05-2022 Cognitive function Light Pain [facility] Work Phone: Clinical Notes 11-02-2020 to 07-05-2023 Note Date & Type Note Facility 07-05-2023 Progress note Note Date/Time July 05, 2023 6:11pm [id number] [place] [address] Emergency Department Note Signed Patient Name: Esteban Grossman [facility] Record #: [id number] Date of : 1985 Age/Sex: 38 / M Location: ED Attending physician: HPI - General Adult General Date of Visit: 07/05/23 Chief complaint: Upper Respiratory Infection/ Sore Throat Time Seen by Provider: 07/05/23 18:02 History of Present Illness HPI narrative: The patient is a 38 year old M who presented to the Emergency Department with the complaint of coughing up blood. Patient was seen here earlier this morning and diagnosed with pneumonia. He was given IV doses of antibiotics and discharged home as his vital signs stabilized and he was feeling better. Patient reports after going home he started having chills and felt very shaky. He states he began coughing a lot and coughed up some blood. He denies any further instances of coughing up blood. He denies any shortness of breath gasping or choking. He denies any chest pain or difficulty breathing. He denies any abdominal pain nausea vomiting or diarrhea. Mode of Arrival: Ambulatory Home Meds and Allergies Previous Rx's Medication Instructions Recorded azithromycin 250 mg tablet See Rx Instructions PO .COMPLEX #6 07/05/23 (Zithromax) tabs cephalexin 500 mg capsule 500 mg PO TID #30 caps 07/05/23 Allergies Allergy/AdvReac Type Severity Reaction Status Date / Time No Known Drug Allergies Allergy Verified 07/05/23 18:02 Review of Systems Status of ROS: Reports: 10 or more systems reviewed and unremarkable except asnoted in History and below Constitutional: Reports: fever(s), chills and fatigue Cardiovascular: Reports: dyspnea; Denies: chest pain or lightheadedness Respiratory: Reports: dyspnea, cough, hemoptysis and chest congestion Gastrointestinal: Denies: abdominal pain, nausea or vomiting Endocrine: Reports: fatigue History PFSH Medical History No significant past medical history Surgical History No significant past surgical history Social History History Provided by: Patient Preferred Language: Turkish Language Assistance Offered: Not Applicable Usual Living Arrangement: With Spouse/Significant Other Smoking Status: Never Smoker Other Form of Tobacco Used: Never Used Second Hand Tobacco Smoke Exposure: No How Often do you Have a Drink Containing Alcohol: Never How Many Standard Drinks Containing Alcohol do you Have on a Typical Day: None How Often do you Have Six or More Drinks on One Occasion: Never AUDIT-C Alcohol Total Score: 0 Non-Prescribed Substance Use: Denies Use Suspect/Identified Abuse: No Physical Exam Narrative: Vital signs, click to edit/add: Vital Signs - 24 hr 07/05/23 17:55 07/05/23 21:48 07/05/23 21:49 Temperature 101.9 F H 98.9 F 98.9 F Pulse Rate [Right Brachial] 111 H Respiratory Rate 20 Blood Pressure [Ri ght Arm] 111/60 Pulse Oximetry 92 L Oxygen Delivery Me thod Room Air Constitutional: Common normals: no acute distress and alert General appearance: cooperative HENT: Common normals: normocephalic, atraumatic and moist oral mucous membranes Head and scalp: normal to inspection, normocephalic and atraumatic Eye: Common normals: conjunctivae normal Conjunctiva: conjunctivae normal Neck & C-Spine: Common normals: supple Chest: Chest: Symmetrical chest wall rise Respiratory: Common normals: normal respiratory effort, clear to auscultation bilaterally and Good bilateral breath sounds Effort & inspection: able to speak in complete sentences Auscultation: clear to auscultation bilaterally Cardio: Common normals: regular rate, regular rhythm, S1 normal heart sound present and S2 normal heart sound present Rate: regular rate Rhythm: regular rhythm Heart sounds: S1 normal heart sound present and S2 normal heart sound present GI: Common normals: Normal to inspection, nondistended, normoactive bowel sounds present : Common normals: Deferred Neuro: Common normals: alert Sensorium/orientation: Yes alert Skin: Common normals: warm and normal color Medical Decision Making MDM Narrative Medical decision making narrative: This is a 38-year-old male who presents emergency department for the second timetoday for evaluation of hemoptysis. Patient was previously diagnosed from his previous visit with left lower lobe pneumonia. Patient was treated with IV doseof antibiotics and discharged home in stable condition. Patient went home and began having episodes of hemoptysis without shortness of breath difficulty breathing. Patient is from [facility]. Patient had CT scan performed--CTA chest with contrast shows suboptimal pulmonary artery opacification due to delayed bolus timing. Within the limitations of the study no findings to suggest pulmonary artery emboli. Left lower lobe consolidation compatible with pneumonia. Splenomegaly. Patient and were updated on CT results. He was given additional dose of Tylenol and Motrin he will be admitted into the hospital for further care and evaluation. I spoke to Marija hospitalist who graciously excepting the admission. Imaging Data Radiologist's impression: CTA chest with contrast shows suboptimal pulmonary artery opacification due to delayed bolus timing. Within the limitations of the study no findings to suggest pulmonary artery emboli. Left lower lobe consolidation compatible with pneumonia. Splenomegaly. Procedures Procedural Sedation Performed Procedural Sedation Performed: No Course Course Medication Administered: Active Medications Generic Name Dose Route Start Last Admin Trade Name Freq PRN Reason Stop Dose Admin Sodium Chloride 20 ml 07/05/23 18:10 07/05/23 19:12 Sodium Chloride 0.9% Flush 5 Ml Syringe IVPUSH 07/06/23 18:09 10 ml PRN PRN Administration FLUSH Sodium Chloride 9 ml 07/05/23 18:45 Sodium Chloride 0.9% Flush 3 Ml Syringe IVPUSH 08/04/23 18:44 PRN PRN FLUSH Sodium Chloride 250 ml 07/05/23 18:45 0.9 % Sodium Chloride - 250 Ml Flush Bag IV 08/04/23 18:44 ONCE PRN FLUSH Discontinued Medications Generic Name Dose Route Start Last Admin Trade Name [place] PRN Reason Stop Dose Admin Acetaminophen 1,000 mg 07/05/23 20:23 07/05/23 21:48 Acetaminophen 500 Mg Tablet PO 07/05/23 20:24 1,000 mg ONCE ONE Administration Ibuprofen 800 mg 07/05/23 20:23 07/05/23 21:49 Ibuprofen 800 Mg Tablet PO 07/05/23 20:24 800 mg ONCE ONE Administration Iodixanol 100 ml 07/05/23 18:10 07/05/23 19:12 Visipaque 320 Mg/Ml 100 Ml Bottle IVPUSH 07/05/23 18:11 100 ml ONCE ONE Administration Sodium Chloride 50 ml 07/05/23 18:10 07/05/23 19:12 0.9% Sod Chloride-Flush 50 Ml Bag IV 07/05/23 18:11 50 ml ONCE ONE Administration Vital Signs Vital signs: Vital Signs 07/05/23 17:55 07/05/23 21:48 07/05/23 21:49 Temperature 101.9 F H 98.9 F 98.9 F Pulse Rate [Right Brachial] 111 H Respiratory Rate 20 Blood Pressure [Right Arm] 111/60 Pulse Oximetry 92 L Oxygen Delivery Method Room Air Reevaluation 1 Time: 20:26 Reevaluation: Patient continues to cough and spit up blood-tinged sputum. He is not short of breath he is not having difficulty breathing. is at bedside. They are from out of town in [facility]. Awaiting CT scan results Will have patient admitted per hospitalist for further care and evaluation. Hospitalist paged for admission Discharge Plan Discharge (Provider) Patient Disposition: Admit: Med Surg Clinical Impression: Pneumonia Condition: Stable Referrals: PCP,No [Primary Care Provider] - Home Meds & Prescriptions: No Action azithromycin [Zithromax] 250 mg tablet See Rx Instructions .ROUTE .COMPLEX Qty: 6 0RF Rx Instructions: For 250 mg dose pack: take 500 mg today (day 1), then 250 mg for 4 days (days2-5) cephalexin 500 mg capsule 500 mg PO TID Qty: 30 0RF ` Dictated By: Ester Hernandez CNP 07/05/23 2741 Signed By: <Electronically signed by SONI Norman Tess Hernandez> 07/05/232227 Cosigned By (if applicable): [id number] cc: [facility] Work Phone: [phone] SARS-CoV-2 (COVID-19) RNA OMAYRA+non-probe Ql (Resp)SARS-CoV-2 PCR ResultDecember 2022 11:59amPresumptive negative NegativeID Now CoVID-19 is an automated assay that utilizes isothermal nucleic acid amplification (PCR-Type) technology for the qualitative detection of ABDIAZIZ-CoV-2 VIRAL nucleic acids. This is not an antigen test.COVID-19 RESULT INTERPRETATION:CoVID-19 Positive - Positive results do not rule out bacterial in fection or co-infection with other viruses.CoVID-19 Negative - Negative results should be treated as presumptive and, if inconsistent with clinical signs and symptoms or necessary for patient management, should be tested with an alternative molecular assay. A negative result does not rule out co-infections with other pathogens.Invalid - The presence or absence of CoVID-19 Viral RNAs cannot be determined. Suggest testing with an alternate assay method.[facility] [id number] [address] [place] [id number] Community HospitalComment on above:ID Now CoVID-19 is an automated assay that utilizes isothermal nucleic acid amplification (PCR-Type) technology for the qualitative detection of ABDIAZIZ-CoV-2 VIRAL nucleic acids. This is not an antigen test.COVID-19 RESULT INTERPRETATION:CoVID-19 Positive - Positive results do not rule out bacterial infection or co-infection with other viruses.CoVID-19 Negative - Negative results should be treated as presumptive and, if inconsistent with clinical signs and symptoms or necessary for patient management, should be tested with an alternative molecular assay. A negative result does not rule out co-infections with other pathogens.Invalid - The presence or absence of CoVID-19 Viral RNAs cannot be determined. Suggest testing with an alternate assay method.12-28-2020 NoteHNO ID: [id number] Author: Haritha Vasquez DPM Service: ? Author Type: Physician Type: Progress Notes Filed: 12/28/2020 5:33 PM Note Text: CC: Right forefoot pain HPI: This 35 year old male presents today for follow up wart right foot and pain to bottom of his right great toe. States that the feeling he had of walking on a pebble has gone away. Has been using the dancers pads and states that believes these have helped as well. Not experiencing much right foot pain at this time. Does have a new complaint of pain to the left hallux toenail which is intermittent in nature. Points to medial nail border. Denies drainage. Denies any other pedal complaints. Te Galan MD History reviewed. No pertinent past medical history. Current Outpatient Medications Medication Sig Dispense Refill - ondansetron orally disintegrating (ZOFRAN ODT) 4 mg disintegrating tablet Take 1 tablet by mouth every 8 hours as needed. 12 tablet 0 - dicyclomine (BENTYL) 20 mg tablet Take 1 tablet by mouth four times daily as needed (for abdominal cramping). 12 tablet 0 No current facility-administered medications for this visit. ALLERGIES No Known Allergies REVIEW OF SYSTEMS MSK: + as noted in HPI. Physical examination: On General Observation: Patient is a pleasant, cooperative, well developed 35 year old adult male. The patient is alert and oriented to time, place and person. Patient has normal affect and mood. Resp 16 Ht 203.2 cm (6' 8) Wt 136.1 kg (300 lb) BMI 32.96 kg/m? Vascular: DP and PT pulses are palpable. CFT less than 3 seconds to all digits. Skin temperature is warm to warm from proximal to distal. Hair growth is noted. No edema noted Neuro: Light touch intact. Protective sensation intact at all pedal sites via [place] Elia 5.07 monofilament. Derm: Skin texture and turgor within normal limits. Webspaces 1-4 clean, dry, intact bilateral. Area of previous hyperkeratotic lesion noted to the plantar aspect of right first metatarsal head appears resolved. Incurvation noted to the medial nail border of the left hallux nail plate. + tenderness to palpation. No erythema or edema noted. No drainage noted. Musc: Elevated medial longitudinal arch. Muscle strength is 5/5 for all muscle groups including dorsiflexors, plantarflexors, everters, and inverters b/l. There is no pain to palpation of the plantar aspect of right first MPJ or sesamoids. Decreased right first MPJ range of motion without pain or crepitus. Negative Trenton?s test or signs of intermetatarsal neuroma. No tingling or burning sensations noted. No pain to palpation tarsometatarsal joint complex or with range of motion of tarsometatarsal joints. Ankle joint ROM is decreased/l, STJ, and MTJ ROM full without pain or crepitus. Impression: This is a 35 year old patient with subjective idiopathic right foot neuropathy presenting with resolved plantar wart to right foot sub1st metatarsal versus sesamoiditis and hallux limitus and equinus Incurvated toenail left hallux medial nail border Plan: A history and physical examination were preformed. The patient was educated on clinical and radiographic findings, diagnosis and treatment plans. Patient state that he understands all that has been explained and all questions were answered to his apparent satisfaction. - Discussed findings and possible etiology of patient's condition. - Patient with pain underlying the 1st metatarsal head which is resolved today. Continue dancers pad and inserts. Discussed custom inserts in the future if needed. - Verruca appears resolved today. Patient to monitor for recurrence. - OTC NSAIDs as needed - Discussed treatment options for incurvated left hallux nail plate including slant back procedure verse partial permanent nail avulsion. Pt elects to proceed with slant back today. Slant back performed to the medial nail border of the left hallux with resolution of pain. Bandage applied overlying. Discussed procedure in the future is patient chooses. -Follow up as needed. Haritha Vasquez [facility]06-17-2021 NoteHNO ID: [id number] Author: Caleb Catherine Service: ? Author Type: Monogram And Letter Paster Type: Progress Notes Filed: 12/28/2020 5:33 PM Note Text: REVIEW OF SYSTEMS: GENERAL: Well developed, well nourished. No acute distress PAIN: Negative for pain, history of chronic pain or current treatment for chronic pain conditions CARDIOVASCULAR: Negative for chest pain, leg swelling and palpations. MSK: Negative for joint swelling SKIN: Negative for lesions, rash, itching, metal sensitivity NEURO: Negative for seizure, trauma, numbness/tingling of extremities. ENDOCRINE: Negative for diabetic associated symptoms HEMATOLOGY: Negative for excessive bleeding, clots, bleeding disorders.[facility]05-13-2021 NoteHNO ID: [id number] Author: Haritha Vasquez DPM Service: ? Author Type: Physician Type: Progress Notes Filed: 11/26/2020 11:15 PM Note Text: CC: Right forefoot pain HPI: This 35 year old male presents today for follow up wart right foot and pain to bottom of his right great toe. Patient states that wart did blister after application of cryotherapy. States that feeling of walking on pebble has gone away. Still having some pain to the area under the great toe. States that did get powerstep inserts and have ordered dancers pads but has not received them yet. Denies any other pedal complaints. Te Galan MD History reviewed. No pertinent past medical history. Current Outpatient Medications Medication Sig Dispense Refill - ondansetron orally disintegrating (ZOFRAN ODT) 4 mg disintegrating tablet Take 1 tablet by mouth every 8 hours as needed. 12 tablet 0 - dicyclomine (BENTYL) 20 mg tablet Take 1 tablet by mouth four times daily as needed (for abdominal cramping). 12 tablet 0 No current facility-administered medications for this visit. ALLERGIES No Known Allergies REVIEW OF SYSTEMS MSK: + as noted in HPI. Physical examination: On General Observation: Patient is a pleasant, cooperative, well developed 35 year old adult male. The patient is alert and oriented to time, place and person. Patient has normal affect and mood. Resp 18 Ht 203.2 cm (6' 8) Wt 136.1 kg (300 lb) BMI 32.96 kg/m? Right LE Vascular: DP and PT pulses are palpable. CFT less than 3 seconds to all digits. Skin temperature is warm to warm from proximal to distal. Hair growth is noted. No edema noted to the right foot Neuro: Light touch intact. Protective sensation intact at all pedal sites via [place] Elia 5.07 monofilament. Derm: Skin texture and turgor within normal limits. Webspaces 1-4 clean, dry, intact bilateral. A small hyperkeratotic lesion noted to the plantar aspect of right first metatarsal head. Upon debridement of lesion, there is thrombosed capillaries with pinpoint bleeding and disruption of skin lines consistent with verruca. Lesion measures 2mm x 2mm. Musc: Elevated medial longitudinal arch. Muscle strength is 5/5 for all muscle groups including dorsiflexors, plantarflexors, everters, and inverters b/l. There is pinpoint pain to palpation overlying the plantar aspect of right first MPJ at region of verruca as well as the sesamoids (these are very close proximity to one another). More tender to fibular sesamoid today. There is no accompanying local effusion to this area. Decreased right first MPJ range of motion without pain or crepitus. Negative Trenton?s test or signs of intermetatarsal neuroma. No tingling or burning sensations noted. No pain to palpation tarsometatarsal joint complex or with range of motion of tarsometatarsal joints. Ankle joint ROM is decreased/l, STJ, and MTJ ROM full without pain or crepitus. Impression: This is a 35 year old patient with subjective idiopathic right foot neuropathy presenting with plantar wart to right foot sub1st metatarsal versus sesamoiditis and hallux limitus and equinus Plan: A history and physical examination were preformed. The patient was educated on clinical and radiographic findings, diagnosis and treatment plans. Patient state that he understands all that has been explained and all questions were answered to his apparent satisfaction. - Discussed findings and possible etiology of patient's condition. - Patient with pain underlying the 1st metatarsal head which is improved. On palpation pain is to plantar verruca and tibial sesamoid. These are in very close proximity thus difficult to tell which is more symptomatic. Will continue to address both issues. - We discussed the options for treatment. We discussed the nature of verrucas, that they can be resistant to treatment and that recurrence can occur. We discussed and recommended cryotherapy today. Patient verbalized understanding and elects to proceed. Elects to continue with cryotherapy treatment today. Patient was educated on details of the procedure as well as medically reasonable risks, benefits and complications. Verbal consent was obtained. Please see procedure note below. - Continue powerstep inserts with added dancers pad to offload the sesamoids once receives - OTC NSAIDs as needed - Perform ankle stretching exercises -Follow up in 3-4 weeks. Procedure note: Patient verified by: Name Site of the procedure confirmed:Yes Site: Plantar right foot Time out performed. ? Sharp debridement was performed to right foot verruca utilizing 15 blade to level of pinpoint bleeding. Hemostasis was obtained with pressure. Application #2 of CryoTherapy was then applied overlying. Bandage was then applied overlying. Patient tolerated procedure well and without complication. Home going instructions were dispensed to patient. [facility] NoteHNO ID: [id number] Author: Caleb Guallpa Service: ? Author Type: Monogram And Letter Paster Type: Progress Notes Filed: 11/26/2020 11:15 PM Note Text: REVIEW OF SYSTEMS: GENERAL: Well developed, well nourished. No acute distress PAIN: Pain rt foot CARDIOVASCULAR: Negative for chest pain, leg swelling and palpations. MSK: Negative for joint swelling SKIN: Negative for lesions, rash, itching, metal sensitivity NEURO: Negative for seizure, trauma, numbness/tingling of extremities. ENDOCRINE: Negative for diabetic associated symptoms HEMATOLOGY: Negative for excessive bleeding, clots, bleeding disorders.[facility]04-22-2021 NoteHNO ID: [id number] Author: Haritha Vasquez Service: ? Author Type: Physician Type: Progress Notes Filed: 11/03/2020 10:52 AM Note Text: CC: Right forefoot pain HPI: This 35 year old male with PMH indicated below presents today complaining of a pain to bottom of his right great toe. Pain has been present for greater than a year. Pain is present mostly during ambulation and worst with prolong ambulation. Patient describes pain as achy rated as 3/10. Admits to increase in pain with pressure to the area. Denies swelling or redness. Denies overt injury. Denies to numbness and tingling to the toe. Patient admits use of analgesics with mild relief. Relates to history of right foot puncture injury about 7 years ago that resolved without complication. He relates to recent nerve conduction study and diagnosis with sensory neuropathy. Denies any other pedal complaints. Te Galan MD History reviewed. No pertinent past medical history. Current Outpatient Medications Medication Sig Dispense Refill - ondansetron orally disintegrating (ZOFRAN ODT) 4 mg disintegrating tablet Take 1 tablet by mouth every 8 hours as needed. 12 tablet 0 - dicyclomine (BENTYL) 20 mg tablet Take 1 tablet by mouth four times daily as needed (for abdominal cramping). 12 tablet 0 No current facility-administered medications for this visit. ALLERGIES No Known Allergies History reviewed. No pertinent surgical history. Social History Tobacco Use - Smoking status: Never Smoker - Smokeless tobacco: Never Used Substance Use Topics - Alcohol use: Not on file - Drug use: Not on file History reviewed. No pertinent family history. REVIEW OF SYSTEMS MSK: + as noted in HPI. Physical examination: On General Observation: Patient is a pleasant, cooperative, well developed 35 year old adult male. The patient is alert and oriented to time, place and person. Patient has normal affect and mood. Resp 18 Ht 203.2 cm (6' 8) Wt (!) 141.5 kg (312 lb) BMI 34.27 kg/m? Right LE Vascular: DP and PT pulses are palpable. CFT less than 3 seconds to all digits. Skin temperature is warm to warm from proximal to distal. Hair growth is noted. No edema noted to the right foot Neuro: Light touch intact. Protective sensation intact at all pedal sites via [place] Elia 5.07 monofilament. Derm: Skin texture and turgor within normal limits. Webspaces 1-4 clean, dry, intact bilateral. A small hyperkeratotic lesion noted to the plantar aspect of right first metatarsal head. Upon debridement of lesion, there is thrombosed capillaries with pinpoint bleeding and disruption of skin lines consistent with verruca. Lesion measures 5mm x 3mm. Musc: Elevated medial longitudinal arch. Muscle strength is 5/5 for all muscle groups including dorsiflexors, plantarflexors, everters, and inverters b/l. There is pinpoint pain to palpation overlying the plantar aspect of right first MPJ at region of verruca as well as the tibial sesamoid (these are very close proximity to one another). There is no accompanying local effusion to this area. Decreased right first MPJ range of motion without pain or crepitus. Negative [place]on?s test or signs of intermetatarsal neuroma. No tingling or burning sensations noted. No pain to palpation tarsometatarsal joint complex or with range of motion of tarsometatarsal joints. Ankle joint ROM is decreased/l, STJ, and MTJ ROM full without pain or crepitus. Radiographs: 3 views of the right foot were taken today. Radiographic impression: Joint spaces maintained with exception of the right first MPJ that shows slightly narrowed joint space with dorsal spurring. No acute fractures or dislocations noted. No bony cyst or tumors noted. Impression: This is a 35 year old patient with subjective idiopathic right foot neuropathy presenting with plantar wart to right foot sub1st metatarsal versus sesamoiditis and hallux limitus and equinus Plan: A comprehensive history and physical examination were preformed. The patient was educated on clinical and radiographic findings, diagnosis and treatment plans. Patient state that he understands all that has been explained and all questions were answered to his apparent satisfaction. - Discussed findings and possible etiology of patient's condition. - Patient with pain underlying the 1st metatarsal head. On palpation pain is to plantar verruca and tibial sesamoid. These are in very close proximity thus difficult to tell which is more symptomatic. Will address both issues. - We discussed the options for treatment. We discussed the nature of verrucas, that they can be resistant to treatment and that recurrence can occur. We discussed and recommended cryotherapy today. Patient verbalized understanding and elects to proceed. Elects to proceed with cryotherapy treatment today. Patient was educated on details of the procedure as well as medically reasonable r (more content not included)...[facility]04-22-2021 NoteHNO ID: [id number] Author: Mich White) Caleb Galan Service: ? Author Type: Monogram And Letter Paster Type: Progress Notes Filed: 11/03/2020 10:52 AM Note Text: REVIEW OF SYSTEMS: GENERAL: Well developed, well nourished. No acute distress PAIN: Pain rt foot CARDIOVASCULAR: Negative for chest pain, leg swelling and palpations. MSK: Negative for joint swelling SKIN: Negative for lesions, rash, itching, metal sensitivity NEURO: Negative for seizure, trauma, numbness/tingling of extremities. ENDOCRINE: Negative for diabetic associated symptoms HEMATOLOGY: Negative for excessive bleeding, clots, bleeding [facility]Evaluation noteNo assessment information availableWCoshocton Regional Medical Center Work Phone: Evaluation note* Diagnosis Onset Date Resolution Status Abdominal pain acute Acute appendicitis acute [facility] Work Phone: Evaluation note* Diagnosis Onset Date Resolution Status Abdominal pain acute Acute appendicitis acute S/P laparoscopic appendectomy acute Night sweats acute Postoperative fever acute S/P laparoscopic appendectomy [facility] Work Phone: Evaluation note* Diagnosis Onset Date Resolution Status Pneumonia acute [facility] Work Phone: Reason for referral (narrative)No reason for referral information availableWCoshocton Regional Medical Center Work Phone: Summary Purpose Family History No Family History Records Found Relationship Condition Age at Onset Recorded Date/T wing father Hypertension Unknown Atrial fibrillation Unknown Cardiac disease Unknown High blood cholesterol Unknown Advance Directives No Advanced Directives Records Found Advance Directive Response Recorded Date/ Time Living Will No September 07, 2 018 9:54pm Power of Sack Filler No September 07, 2017 9:54pm Advance Directive Response Recorded Date/ Time Living Will No May 05 9:24am Power of Sack Filler No May 05, 2022 9:24am Advance Directive Response Recorded Date/ Time Living Will No May 05 8:24am Power of Sack Filler No May 05, 2022 8:24am Advance Directive Response Recorded Date/ Time Advance Directives No June 11:48am Advance Directives No June 5:58pm Organ Donor No July 05, 2 023 5:58pm Advance Directive Response Recorded Date/ Time Living Will No September 26, 2023 11:24pm Power of Sack Filler No September 25 11:24pm Chief Complaint and Reason for Visit Chief Complaint NODULE Chief Complaint APPENDICITIS Reason for Visit Abdominal pain Acute appendicitis Chief Complaint APPENDICITIS APPENDICITIS Reason for Visit Abdominal pain Acute appendicitis Chief Complaint APPENDICITIS APPENDICITIS 1 W FU APPENDICITIS 05/05 E ORDER bloating/fatigue/temp Acquired absence of other specified parts of diges Reason for Visit Abdominal pain Acute appendicitis S/P laparoscopic appendectomy Night sweats Postoperative fever S/P laparoscopic appendectomy Chief Complaint SOB, Can't catch manuela ath Community Acquired Pneumonia (CAP) Reason for Visit Pneumonia Chief Complaint CAP Chief Complaint CAP LOWER EXT INJURY Additional Source Comments (unrecognized sect ion and content) No Status Records FoundNo Status Records FoundNo Status Records Found INFORMATION SOURCE (unrecogn ized section and content) DATE CREATED AUTHOR 12/29/2020 [facility] DATE CREATED AUTHOR AUTHOR'S ORGANIZ ATION 07/12/2023 [facility] DATE CREATED AUTHOR AUTHOR'S ORGANIZ ATION 10/27/2024 [facility] Goals (unrecognized section and content) Goals may be documented in a n alternate sectionGoals may be documented in an alternate sectionGoals may be documented in an alternate sectionGoals may be documented in an alternate sectionGoals may be documented in an alternate sectionGoals may be documented in an alternate section Care Teams (unrecognized sec tion and content) Team Status: Active Member Role Status Dates Darren Garcia MD Family Provider Active No PCP Primary Care Provider Active Team Status: Inactive Member Role Status Dates No PCP Primary Care Provider Active Yoselin Metcalf MD Emergency Provider Active Team Status: Active Member Role Status Dates No PCP Primary Care Provider Active Yoselin Metcalf MD Emergency Provider Active Aaron Olivera MD Admit Provider, Attending Provide r Active Team Status: Active Member Role Status Dates Dr. Te Galan MD Family Provider Active Dr. Te Neville MD Primary Care Provider Active Team Status: Inactive Member Role Status Dates Dr. Te Neville MD Primary Care Pr ovider, Attending Provider, Referring Provider Active Team Status: Inactive Member Role Status Dates Dr. Te Neville MD Primary Care Provider Active Dr. Jeimy Smith MD Emergency Provider Active Team Status: Inactive Member Role Status Dates Dr. Te Neville MD Primary Care Provider, Attend ing Provider Active Team Status: Inactive Member Role Status Dates Dr. Te Neville MD Primary Care Provider Active Dr. Jeimy Smith MD Attending Provider, Emergency Provider Active Team Status: Inactive Member Role Status Dates Dr. Te Neville MD Primary Care Provider Active Start: October 19, 2024 End: October 19, 2024 Dr. Te Neville MD Attending Provider Active Start: October 19, 2024 End: October 19, 2024 Dr. eT Neville MD Referring Provider Active Start: October 19, 2024 End: October 19, 2024 FOR RECORDS PERTAINING TO PATIENTS WHO ARE OR HAVE BEEN ENROLLED IN A CHEMICAL DEPENDENCY/SUBSTANCEABUSE PROGRAM, SOME INFORMATION MAY BE OMITTED. This clinical summary was aggregated from multiple sources. Caution should be exercised in using it in the provision of clinical care. This summary normalizes information from multiple sources, and as a consequence, information in this document may materially change the coding, format and clinical context of patient data. In addition, data may be omitted in some cases. CLINICAL DECISIONS SHOULD BE BASED ON THE PRIMARY CLINICAL RECORDS. [facility] [facility] provides no warranty or guarantee of the accuracy or completeness of information in this document.
== END | disposition home or self-care (01) ==
LOC: MTRAD 15:59
PROVIDERS: PCP Family Medicine; Referring Provider Family Medicine; Visit Provider Family Medicine
DX: M54.9 Dorsalgia, unspecified (principal)
CPT/HCPCS: 72100